=== PATIENT | female | born 1980 | race Caucasian/White ===

== ENCOUNTER 2016-12-15 23:12 | Emergency (ER) | payer BC ==
[~2016-12-15] VITALS: Ht 160 cm; Wt 77.7 kg
[~2016-12-15 23:12] MED LIST: BUPR-79 PO; DILT40TA2 PO; VENL150C56 PO
[2016-12-15 23:19] VITALS: BP 120/74; PULSE 106; TEMP 36.7; O2SAT 96; Ht 160 cm; Wt 77.7 kg
[2016-12-15] MEDS ORDERED: CLIN300C2 PO (23:37)
[2016-12-15] MEDS ORDERED: LPR25 PO (23:39)
[2016-12-15] MEDS ORDERED: CLINDAMYCIN 150MG HOME PACK PO ONE (23:45)
--- NOTE | 2016-12-16 00:11 | EMERGENCY ROOM VISIT NOTE ---
History First contact with patient: 23:24 Chief Complaint: BITE Stated Complaint: BITE ON RT BUTTOCK,SWOLLEN,HURTS History of Present Illness The patient is a 36 year old female who presents to the Emergency Room with complaints of pain and swelling of her right sided buttock for the past 2 days. The patient believes that she may have been bitten by an unknown insect. She did note some blood on her underwear today, causing her concern. The patient has not had fever or chills. She has not had difficulty using the bathroom. She is unable to visualize the area because of its location. She rates her discomfort a 7/10. Review of Systems More than 10 systems were reviewed and otherwise negative with the exception of history of present illness. Past Medical/Surgical History Medical Problems: (1) Alcohol Abuse-Unspec (2) Alcohol overdose (3) Anxiety State Nos (4) Asthma, Unspecified (5) Calculus Of Kidney (6) coronary bypass surgery (7) Ext Hemrrhoid W Comp Nec (8) Heart disease (9) High grade squamous intraepithelial cervical dysplasia (10) Hypertension Nos (11) Intentional overdose of beta-adrenergic blocking drug (12) Kidney stone (13) Lumbago (14) Ovarian Cyst Nec/Nos (15) Tobacco Use Disorder (16) Tonsillectomy Family History Hypertension Social History Smoking Status: Current Every Day Smoker Alcohol Use: occasionally Drug Use: none Marital Status: Housing Status: lives with family, lives with significant other Occupation Status: employed Current/Historical Medications Scheduled Clindamycin Hcl (Cleocin), 300 MG PO QID Metoprolol Tartrate (Lopressor), 25 MG PO BID Venlafaxine Hcl (Effexor Extended Rel), 150 MG PO DAILY Allergies Coded Allergies: Ampicillin (Verified Allergy, Intermediate, HIVES, 12/15/16) Morphine (Verified Allergy, Intermediate, HIVES AFTER AMPICILLIN AND MORPHINE, 12/15/16) Penicillins (Verified Allergy, Intermediate, HIVES AFTER AMPICILLIN AND MORPHINE, 12/15/16) Fentanyl (Verified Allergy, Mild, 12/15/16) Codeine (Verified Allergy, Unknown, 12/15/16) Meperidine (Verified Allergy, Unknown, 12/15/16) Sulfa Antibiotics (Verified Allergy, Unknown, Unknown rxn, 12/15/16) Promethazine (Verified Adverse Reaction, Mild, itching, 12/15/16) Physical Exam Vital Signs Date Time Temp Pulse Resp B/P Pulse Ox O2 Delivery O2 Flow Rate FiO2 12/15/16 23:19 36.7 106 18 120/74 96 Room Air Pain Rating (0-10): 9.0 Physical Exam VITALS: Vitals are noted on the nurse's note and reviewed by myself. Vital signs stable. GENERAL: Well-developed, well-nourished, white female, who is in no acute distress and resting comfortably. Patient is cooperative with the examination. HEAD: Normocephalic atraumatic. HEART: Regular rate and rhythm without murmurs gallops or rubs. LUNGS: Clear to auscultation bilaterally without wheezes, rales or rhonchi. No retractions or accessory muscle use. SKIN: The skin was with a 3.0 cm in diameter open abscess with surrounding cellulitis along the right lower buttocks. There is no active drainage or discharge. Medical Decision & Procedures Medications Administered Medications (Trade) Dose Ordered Sig/Darrell Route Start Time Stop Time Status Last Admin Dose Admin Clindamycin HCl (Cleocin 150MG Home Pack) 1 homepack UD ONCE PO 12/15/16 23:45 12/15/16 23:46 DC 12/15/16 23:45 1 HOMEPACK ED Course Physical exam and history were performed. Nursing notes and EMR were reviewed. Patient appears to have an open abscess of the right lower buttocks. There appears to be a surrounding cellulitis. I attempted to obtain purulent material for culture, but was unable to gather this. The patient will be started on clindamycin. She evidently does not have a primary care physician, and I will have her return to the ER in 48-72 hours for recheck. The patient was otherwise invited back to the ER sooner with any new, worsening, or concerning symptoms. The patient was pleased with plan of care and voiced understanding. The chart was completed utilizing [employer] Voice Recognition Software. Grammatical errors, random word insertions, pronoun errors, and incomplete sentences are an occasional consequence of this system due to software limitations, ambient noise, and hardware issues. Any formal questions or concerns about the content, text, or information contained within the body of this dictation should be directly addressed to the provider for clarification. . Medical Decision Differential diagnosis: Etiologies such as cellulitis, abscess, MRSA infection, DVT, necrotizing fasciitis, dermatitis, drug eruption, as well as others were entertained.. Impression Primary Impression: Cellulitis Departure Information Dispostion Home / Self-Care Condition GOOD Prescriptions Clindamycin Hcl (CLEOCIN) 300 Mg Cap 300 MG PO QID for 10 Days, #40 CAP Prov: Ben Green PA-C 12/15/16 Forms HOME CARE DOCUMENTATION FORM, IMPORTANT VISIT INFORMATION Patient Instructions My [facility] Additional Instructions You were seen and evaluated today on an emergency basis only. This is not a substitute for, or an effort to provide, complete comprehensive medical care. It is not possible to recognize and treat all injuries or illnesses in a single emergency department visit. For this reason it is recommended that you followup with your primary care physician or back in the emergency department in 48-72 hours for recheck of your condition. Take clindamycin 300 mg 4 times daily for your infection. You are welcome to return to the emergency department anytime with new, worsening, or concerning symptoms.
== END 2016-12-15 23:48 | disposition home or self-care (01) ==
LOC: C.EDB 23:13 → C.EDA 23:48
DX: L03.317 Cellulitis of buttock (principal); J45.909 Unspecified asthma, uncomplicated; I10 Essential (primary) hypertension; Z82.49 Family history of ischemic heart disease and other diseases of the circulatory system; F17.200 Nicotine dependence, unspecified, uncomplicated

== ENCOUNTER 2016-12-20 22:41 | Emergency (ER) | payer BC ==
[~2016-12-20] VITALS: Ht 162.6 cm; Wt 76.9 kg
[~2016-12-20 22:41] MED LIST changes: -BUPR-79 PO; +CLIN300C2 PO; -DILT40TA2 PO; +LPR25 PO
[2016-12-20 22:43] VITALS: TEMP 36.7; Ht 162.6 cm; Wt 76.9 kg
[2016-12-20] MEDS ORDERED: SODIUM CHLORIDE 0.9% 1000ML 1,000 ML IV STA ×2 (23:33)
[2016-12-20] MEDS ORDERED: CEFTRIAXONE SOD INJ 1 GM ADDVIAL IV STA (23:33)
[2016-12-20] MEDS ORDERED: KETOROLAC TROMETHAMINE 30 MG/ML VIAL IV STA (23:33)
[2016-12-20] MEDS ORDERED: OPTIRAY 320 IV PRN (23:45)
[2016-12-21 00:04] LABS: BASO % 0.4 %; BASO ABS # 0.03 K/uL (0-0.2); COMPLETE YES; EOS % 2.2 %; HEMATOCRIT 42.5 % (37-47); IG% 0.3 %; LYMPH % 40.1 %; LYMPH ABS # 2.95 K/uL (1.2-3.4); MEAN CELL VOLUME 92.2 fL (80-100); MEAN CORPUSCULAR HEMOGLOBIN 32.1 pg (25-34); MEAN CORPUSCULAR HGB CONC 34.8 g/dl (32-36); MEAN PLATELET VOLUME 10.3 fL (7.4-10.4); MONO % 6.5 %; NEUT % 50.5 %; PLATELET COUNT 307 K/uL (130-400); RED BLOOD COUNT 4.61 M/uL (4.2-5.4); WHITE BLOOD COUNT 7.36 K/uL (4.8-10.8)
[2016-12-21 00:27] LABS: BUN/CREATININE RATIO 8.3 (10-20); CALCIUM 8.6 mg/dl (8.5-10.1); CREATININE 0.63 mg/dl (0.60-1.20); POTASSIUM 3.7 mmol/L (3.5-5.1)
[2016-12-21 00:49] LABS: PREG INTERNAL NEGATIVE QC NEG CLEAR BACKGROUND; PREG INTERNAL POSITIVE QC POS CONTROL LINE
[2016-12-21 02:11] LABS: URINE APPEARANCE CLEAR (CLEAR); URINE BILIRUBIN NEG (NEG); URINE COLOR YELLOW; URINE NITRITE NEG (NEG); URINE SPECIFIC GRAVITY > 1.045 (1.000-1.030); UROBILINOGEN NEG (NEG); ZZUR CULT IF INDIC CLEAN CATCH NO
[2016-12-21 02:15] LABS: MANUAL MICROSCOPIC REQUIRED? NO; REVIEW REQ? NO
[2016-12-21] MEDS ORDERED: CEPH500C2 PO (02:37)
[2016-12-21 02:41] VITALS: BP 140/71; PULSE 78; O2SAT 98
--- NOTE | 2016-12-21 02:49 | EMERGENCY ROOM VISIT NOTE ---
History First contact with patient: 23:18 Chief Complaint: BITE Stated Complaint: FOLLOW UP ON BUG BITE 12/15 History of Present Illness The patient is a 36 year old female who presents to the Emergency Room with complaints of ongoing right buttock pain for the past week is currently on antibiotics for infection due to a infected boil. Patient states the redness has pretty much resolved but she still having discomfort there. 5 out of 10. Nothing makes it better or worse. Patient denies chest pain, dyspnea, fever, chills, nausea, vomiting, diarrhea, abdominal pain, urinary symptoms. She is tolerating by mouth fluids and food. Tetanus is current. Review of Systems See HPI for pertinent positives & negatives. A total of 10 systems reviewed and were otherwise negative. Past Medical/Surgical History Medical Problems: (1) Alcohol Abuse-Unspec (2) Alcohol overdose (3) Anxiety State Nos (4) Asthma, Unspecified (5) Calculus Of Kidney (6) coronary bypass surgery (7) Ext Hemrrhoid W Comp Nec (8) Heart disease (9) High grade squamous intraepithelial cervical dysplasia (10) Hypertension Nos (11) Intentional overdose of beta-adrenergic blocking drug (12) Kidney stone (13) Lumbago (14) Ovarian Cyst Nec/Nos (15) Tobacco Use Disorder (16) Tonsillectomy Family History Hypertension Social History Smoking Status: Current Every Day Smoker Alcohol Use: occasionally Drug Use: none Marital Status: Housing Status: lives with family, lives with significant other Occupation Status: employed Current/Historical Medications Scheduled Cephalexin Monohydrate (Keflex), 500 MG PO QID Clindamycin Hcl (Cleocin), 300 MG PO QID Metoprolol Tartrate (Lopressor), 25 MG PO BID Venlafaxine Hcl (Effexor Extended Rel), 150 MG PO DAILY Allergies Coded Allergies: Ampicillin (Verified Allergy, Intermediate, HIVES, 12/21/16) Morphine (Verified Allergy, Intermediate, HIVES AFTER AMPICILLIN AND MORPHINE, 12/21/16) Penicillins (Verified Allergy, Intermediate, HIVES AFTER AMPICILLIN AND MORPHINE, 12/21/16) Fentanyl (Verified Allergy, Mild, 12/21/16) Codeine (Verified Allergy, Unknown, 12/21/16) Meperidine (Verified Allergy, Unknown, 12/21/16) Sulfa Antibiotics (Verified Allergy, Unknown, Unknown rxn, 12/21/16) Promethazine (Verified Adverse Reaction, Mild, itching, 12/21/16) Physical Exam Vital Signs Date Time Temp Pulse Resp B/P Pulse Ox O2 Delivery O2 Flow Rate FiO2 12/21/16 02:41 78 18 140/71 98 12/21/16 00:27 100 16 136/70 97 Room Air 12/20/16 22:43 36.7 119 18 144/65 96 Room Air Pain Rating (0-10): 4.0 Physical Exam VITALS: Vitals are noted on the nurse's note and reviewed by myself. Vital signs stable. GENERAL: Pleasant female, in no acute distress, nondiaphoretic, well-developed well-nourished. SKIN: Right buttock with 2 cm x 2 cm erythematous area with central ulceration without fluctuance or lymphangitis The rest of the skin was without rashes, erythema, edema, or bruising. There is no tenting of the skin. Capillary reflex less than 2 seconds. HEAD: Normocephalic atraumatic. EARS: External auditory canals clear, tympanic membranes pearly leiva without erythema or effusion bilaterally. EYES: Pupils equal round and reactive to light and accommodation. Conjunctivae without injection, sclerae without icterus. Extraocular movements intact. NOSE: Patent, turbinates without inflammation or discharge. MOUTH: Mucous membranes moist. Pharynx without erythema or exudate. Uvula midline. Airway patent. Tongue does not deviate. NECK: Supple without nuchal rigidity. No lymphadenopathy. No thyromegaly. Cervical spine is nontender. No JVD. HEART: Regular rate and rhythm without murmurs gallops or rubs. LUNGS: Clear to auscultation bilaterally without wheezes, rales or rhonchi. No dullness to percussion. No retractions or accessory muscle use. ABDOMEN: Positive bowel sounds x 4. Normal tympanic percussion. Soft, nontender, without masses or organomegaly. Hyman sign negative. No guarding or rebound tenderness. No CVA tenderness Buttock exam:Right buttock with 2 cm x 2 cm erythematous area with central ulceration without fluctuance or lymphangitis, blocker hand present of the nurse MUSCULOSKELETAL: No muscle atrophy, erythema, or edema noted. NEURO: Patient was alert and oriented to person place and time. Normal sensation to light and sharp touch. No focal neurological deficits. Medical Decision & Procedures Laboratory Results 12/20/16 23:50 Red Blood Count 4.61, Mean Corpuscular Volume 92.2, Mean Corpuscular Hemoglobin 32.1, Mean Corpuscular Hemoglobin Concent 34.8, Mean Platelet Volume 10.3, Neutrophils (%) (Auto) 50.5, Lymphocytes (%) (Auto) 40.1, Monocytes (%) (Auto) 6.5, Eosinophils (%) (Auto) 2.2, Basophils (%) (Auto) 0.4, Neutrophils # (Auto) 3.72, Lymphocytes # (Auto) 2.95, Monocytes # (Auto) 0.48, Eosinophils # (Auto) 0.16, Basophils # (Auto) 0.03 12/20/16 23:50 Test 12/20/16 23:50 12/21/16 02:00 White Blood Count 7.36 K/uL (4.8-10.8) Red Blood Count 4.61 M/uL (4.2-5.4) Hemoglobin 14.8 g/dL (12.0-16.0) Hematocrit 42.5 % (37-47) Mean Corpuscular Volume 92.2 fL (80-100) Mean Corpuscular Hemoglobin 32.1 pg (25-34) Mean Corpuscular Hemoglobin Concent 34.8 g/dl (32-36) Platelet Count 307 K/uL (130-400) Mean Platelet Volume 10.3 fL (7.4-10.4) Neutrophils (%) (Auto) 50.5 % Lymphocytes (%) (Auto) 40.1 % Monocytes (%) (Auto) 6.5 % Eosinophils (%) (Auto) 2.2 % Basophils (%) (Auto) 0.4 % Neutrophils # (Auto) 3.72 K/uL (1.4-6.5) Lymphocytes # (Auto) 2.95 K/uL (1.2-3.4) Monocytes # (Auto) 0.48 K/uL (0.11-0.59) Eosinophils # (Auto) 0.16 K/uL (0-0.5) Basophils # (Auto) 0.03 K/uL (0-0.2) RDW Standard Deviation 43.9 fL (36.4-46.3) RDW Coefficient of Variation 13.1 % (11.5-14.5) Immature Granulocyte % (Auto) 0.3 % Immature Granulocyte # (Auto) 0.02 K/uL (0.00-0.02) Anion Gap 9.0 mmol/L (3-11) Est Creatinine Clear Calc Drug Dose 125.1 ml/min Estimated GFR () 134.7 Estimated GFR (Non- 116.2 BUN/Creatinine Ratio 8.3 (10-20) Calcium Level 8.6 mg/dl (8.5-10.1) Human Chorionic Gonadotropin, Qual NEG (NEG) Urine Color YELLOW Urine Appearance CLEAR (CLEAR) Urine pH 5.0 (4.5-7.5) Urine Specific Bowen > 1.045 (1.000-1.030) Urine Protein NEG (NEG) Urine Glucose (UA) NEG (NEG) Urine Ketones NEG (NEG) Urine Occult Blood NEG (NEG) Urine Nitrite NEG (NEG) Urine Bilirubin NEG (NEG) Urine Urobilinogen NEG (NEG) Urine Leukocyte Esterase NEG (NEG) Medications Administered Medications (Trade) Dose Ordered Sig/Darrell Route Start Time Stop Time Status Last Admin Dose Admin Sodium Chloride 1,000 ml @ 999 mls/hr Q1H1M STAT IV 12/20/16 23:33 12/21/16 00:33 DC 12/20/16 23:33 999 MLS/HR Sodium Chloride (Nss 1000ml) 1,000 ml @ 200 mls/hr Q5H STAT IV 12/20/16 23:33 12/21/16 04:32 12/20/16 23:33 200 MLS/HR Ketorolac Tromethamine (Toradol Inj) 30 mg NOW STAT IV 12/20/16 23:33 12/20/16 23:35 DC 12/20/16 23:59 30 MG Ceftriaxone Sodium (Rocephin Inj) 1 gm NOW STAT IV 12/20/16 23:33 12/20/16 23:35 DC 12/20/16 23:59 1 GM ED Course Prior records reviewed and summarized as above. Triage Nursing notes reviewed. Additional history obtained from family. The patient's history was concerning for swelling and redness of the skin. Differential diagnosis: Etiologies such as cellulitis, abscess, MRSA infection, DVT, necrotizing fasciitis, dermatitis, drug eruption, as well as others were entertained.. Physical examination: The physical examination was consistent with cellulitis ER treatment provided: IV fluids, Toradol, Keflex On reassessment the patient felt better. Diagnostics interpreted by me: The labs revealed no worrisome leukocytosis or electrolyte abnormality, negative urine Imaging studies: CT negative for abscess or fluid collection. This appears to be isolated cellulitis. Patient states overall the redness is improving. Patient was tender to palpation so CT was ordered to rule out abscess or fistula. This is all negative. She is advised to continue her antibiotics and follow-up family care in a few days or here in the ER sooner for fevers, pain, spreading redness, worsening signs or symptoms or as needed. By the evaluation outlined above emergent etiologies such as abscess, necrotizing fasciitis, DVT, as well as others were deemed relatively unlikely. The pt informed about the findings as listed above. All questions were answered and pleased with the treatment. Return instructions were outlined and the patient was discharged in stable condition. Outpatient prescription management: Keflex Referral: The patient was referred back to primary care physician for follow-up in 2 to 3 days for a recheck of the current condition. Case reviewed with my attending Medical Decision As above Impression Primary Impression: Cellulitis of right buttock Departure Information Dispostion Home / Self-Care Condition GOOD Prescriptions Cephalexin Monohydrate (KEFLEX) 500 Mg Cap 500 MG PO QID, #40 CAP Prov: Eduarda Basilio ., SERVANDO 12/21/16 Forms HOME CARE DOCUMENTATION FORM, IMPORTANT VISIT INFORMATION Patient Instructions My [facility] Additional Instructions Cephalexin(Keflex) 500mg: Take one pill four times daily for 10 days for your skin infection. All antibiotics can cause diarrhea. If this occurs and you feel worse or it does not resolve in 1-2 days follow up with your doctor or return to the Emergency Department as this could be signs of serious underlying problems. Any medication can cause an allergic reaction, stop the pills immediately and return to the ER for rash, hives, breathing difficulties, or swelling. Ibuprofen(Motrin, Advil) may be used for fever or pain. Use 600mg every six hours as needed. Take with food. Avoid using more than 2400mg in a 24 hour period. Do not use 2400mg per day for more than three consecutive days without physician direction. Prolonged inappropriate use can lead to stomach upset or ulcers. (AND/OR) Acetaminophen(Tylenol) may be used for fever or pain. Use 1000mg every six hours as needed. Avoid using more than 3000mg in a 24 hour period. Warm compresses to the affected area 4 times daily for 15-20 minutes. Rest and drink plenty of fluids. Continue current medications. Return to the ER for severe pain, persistent fevers, spreading redness, or any worsening of your condition. Follow up with your primary physician within 2-3 days for a recheck of the current condition.
--- NOTE | 2016-12-21 07:50 | DIAGNOSTIC IMAGING REPORT ---
PELVIS W/IV CONT ONLY (CT) HISTORY: Right gluteal pain. TECHNIQUE: Multiaxial CT images of the pelvis performed following the use of intravenous contrast. COMPARISON STUDY: Abdomen and pelvis CT 01/02/2015. FINDINGS: Stable small hypodense lesion within the left side of the uterine fundus. This may represent a fibroid. Mild bladder wall thickening is likely due to underdistention. The visualized loops of bowel show no wall thickening or obstruction. No pelvic lymphadenopathy. No evidence for soft tissue abscess. No radiopaque foreign bodies. The visualized osseous structures are well aligned. IMPRESSION: No evidence for soft tissue abscess. No significant abnormality within the abdomen or pelvis. Electronically signed by: David Tolentino M.D. 12/21/2016 7:49 AM Dictated Date/Time: 12/21/2016 7:47 AM
== END 2016-12-21 02:42 | disposition home or self-care (01) ==
LOC: C.EDB 22:42
DX: L03.317 Cellulitis of buttock (principal); I10 Essential (primary) hypertension; F41.9 Anxiety disorder, unspecified; J45.909 Unspecified asthma, uncomplicated; N83.209 Unspecified ovarian cyst, unspecified side; I51.9 Heart disease, unspecified; F17.200 Nicotine dependence, unspecified, uncomplicated; Z87.440 Personal history of urinary (tract) infections; Z98.890 Other specified postprocedural states; Z79.899 Other long term (current) drug therapy; Z88.0 Allergy status to penicillin; Z88.1 Allergy status to other antibiotic agents; Z88.2 Allergy status to sulfonamides; Z88.5 Allergy status to narcotic agent; Z88.8 Allergy status to other drugs, medicaments and biological substances; Z82.49 Family history of ischemic heart disease and other diseases of the circulatory system

== ENCOUNTER 2017-06-25 15:04 | Emergency (ER) | payer OTHER ==
[~2017-06-25] VITALS: Ht 158.8 cm; Wt 79.8 kg
[~2017-06-25 15:04] MED LIST changes: -CLIN300C2 PO
[2017-06-25 15:06] VITALS: TEMP 37; Ht 158.8 cm; Wt 79.8 kg
[2017-06-25] MEDS ORDERED: ONDANSETRON INJ 2 MG/ML 2 ML VIAL IV STA (15:24)
[2017-06-25 15:35] VITALS: O2SAT 98
[2017-06-25 16:16] LABS: BASO ABS # 0.07 K/uL (0-0.2); COMPLETE YES; EOS % 2.8 %; HEMATOCRIT 44.3 % (37-47); IG% 0.3 %; LYMPH % 24.5 %; LYMPH ABS # 1.73 K/uL (1.2-3.4); MEAN CELL VOLUME 93.3 fL (80-100); MEAN CORPUSCULAR HEMOGLOBIN 32.4 pg (25-34); MEAN CORPUSCULAR HGB CONC 34.8 g/dl (32-36); MEAN PLATELET VOLUME 11.2 fL (7.4-10.4); MONO % 12.2 %; NEUT % 59.2 %; PLATELET COUNT 252 K/uL (130-400); RED BLOOD COUNT 4.75 M/uL (4.2-5.4); WHITE BLOOD COUNT 7.05 K/uL (4.8-10.8)
--- NOTE | 2017-06-25 16:16 | DIAGNOSTIC IMAGING REPORT ---
ABDOMEN 2VIEW W/PA CHEST RTN CLINICAL HISTORY: 37 years-old Female presenting with RUQ/R FLANK PAIN/R CHEST PAIN. TECHNIQUE: PA view of the chest and supine and upright views of the abdomen were obtained. COMPARISON: 01/02/[address] from 01/02/2015. FINDINGS: Median sternotomy wires intact. Cardiomediastinal silhouette normal. Lungs and pleural spaces clear. Mild stool burden. No evidence of obstruction. No evidence of pneumoperitoneum or portal venous gas. No calcifications to suggest nephrolithiasis. Osseous structures normal. IMPRESSION: 1. No acute cardiopulmonary disease. 2. Mild stool burden suggest constipation. No obstruction. Electronically signed by: Tom Sahni M.D. 06/25/2017 4:15 PM Dictated Date/Time: 06/25/2017 4:13 PM
[2017-06-25 16:24] LABS: URINE APPEARANCE CLEAR (CLEAR); URINE BILIRUBIN NEG (NEG); URINE COLOR YELLOW; URINE NITRITE NEG (NEG); URINE PH 8.5 (4.5-7.5); URINE SPECIFIC GRAVITY 1.021 (1.000-1.030); UROBILINOGEN NEG (NEG); ZZUR CULT IF INDIC CLEAN CATCH NO
[2017-06-25 16:26] LABS: INR 0.9 (0.9-1.1); PARTIAL THROMBOPLASTIN RATIO 0.9; PROTHROMBIN TIME (PATIENT) 9.9 SECONDS (9.0-12.0)
[2017-06-25 16:31] LABS: MANUAL MICROSCOPIC REQUIRED? NO; REVIEW REQ? NO
[2017-06-25 16:34] LABS: PREG INTERNAL NEGATIVE QC NEG CLEAR BACKGROUND; PREG INTERNAL POSITIVE QC POS CONTROL LINE
[2017-06-25 17:07] LABS: ALKALINE PHOSPHATASE 78 U/L (45-117); ALT/SGPT 75 U/L (12-78); BLOOD UREA NITROGEN 9 mg/dl (7-18); BUN/CREATININE RATIO 11.9 (10-20); CALCIUM 8.8 mg/dl (8.5-10.1); CARBON DIOXIDE 24 mmol/L (21-32); CHLORIDE 105 mmol/L (98-107); CREATININE 0.76 mg/dl (0.60-1.20); GLUCOSE 91 mg/dl (70-99); SODIUM 140 mmol/L (136-145)
[2017-06-25 17:08] LABS: AST/SGOT 39 U/L (15-37); CKMB/CK RATIO 1.1 (0-3.0); POTASSIUM 4.2 mmol/L (3.5-5.1)
[2017-06-25] MEDS ORDERED: METO50TA16 PO (17:35)
[2017-06-25] MEDS ORDERED: ONDA4TAB10 SL (17:39)
--- NOTE | 2017-06-25 17:42 | EMERGENCY ROOM VISIT NOTE ---
History First contact with patient: 15:10 Chief Complaint: NAUSEA Stated Complaint: NAUSEA, RT SIDE PAIN Nursing Triage Summary: Pt stated that 2weeks ago she was experincing chest pain. The pain then radiated to her abdomen. The pain for the last 2 days have been in the upper/lower right quadrant. Pt states that the pain is a constant ache. Pt also has nausea but denies any vomiting. +bowel sounds all 4 quadrants History of Present Illness The patient is a 37 year old female who presents to the Emergency Room with complaints of intermittent right-sided chest pain, right upper quadrant and right flank pain. The patient reports that she has had an admit and symptoms for the past 2 weeks that is now becoming more constant. It initially started with left central chest discomfort. The patient also reports that she has had a cough over the past month. The patient has a significant history of supraventricular aortic stenosis, status post open heart surgery in 1984. She is currently under the care of Dr. Graves, skating rink ice maker at . She had a recent echocardiogram performed, and is scheduled to see her skating rink ice maker in about one week for follow-up. She does not feel that her pain is secondary to her heart. She denies any shortness of breath. She has had nausea without vomiting. She denies any fevers or chills. Her cough is nonproductive. The pain is worsened when lying on her right side. Patient has a significant history of endometriosis, and has had a prior history of laparoscopic abdominal surgery. She still has all of her reproductive organs, and denies any other abdominal surgeries the patient admits that he had significant depression approximately 2 weeks ago, and was drinking approximately 15 beers a day for several days. She denies any suicidal or homicidal thoughts. She only takes ibuprofen as needed for menstrual cramps, and denies any Tylenol or illicit drug use. She denies any new urinary symptoms. She does report a history of pyelonephritis, but reports that the symptoms are also different. The patient currently rates her discomfort a 7 out of 10. Review of Systems HEENT: Denies dizziness, visual problems, hearing loss, tinnitus. Denies difficulty swallowing or oral lesions. PULMONARY: Denies shortness of breath, sputum production or hemoptysis. Otherwise see history of present illness. CARDIOVASCULAR: Denies palpitations, dyspnea on exertion, orthopnea or peripheral edema. Otherwise see history of present illness. GASTROINTESTINAL: Denies diarrhea, constipation or vomiting, otherwise see history of present illness. GENITOURINARY: Patient reports a chronic history of urinary urgency, but denies any other significant current abnormal symptoms. NEUROLOGIC: Denies history of epilepsy, CVA, TIA or chronic headaches. MUSCULOSKELETAL: Denies history of joint tenderness/swelling. SKIN: Denies rashes or lesions. PSYCHIATRIC: History of depression. ENDOCRINE: Denies history of diabetes or thyroid disorders. Past Medical/Surgical History Medical Problems: (1) Alcohol Abuse-Unspec (2) Alcohol overdose (3) Anxiety State Nos (4) Asthma, Unspecified (5) Calculus Of Kidney (6) coronary bypass surgery (7) Ext Hemrrhoid W Comp Nec (8) Heart disease (9) High grade squamous intraepithelial cervical dysplasia (10) Hypertension Nos (11) Intentional overdose of beta-adrenergic blocking drug (12) Kidney stone (13) Lumbago (14) Ovarian Cyst Nec/Nos (15) Tobacco Use Disorder (16) Tonsillectomy Family History Hypertension Social History Smoking Status: Current Every Day Smoker Alcohol Use: occasionally Drug Use: none Marital Status: Housing Status: lives with family, lives with significant other Occupation Status: employed Current/Historical Medications Scheduled Metoprolol Tartrate (Lopressor), 25 MG PO BID Venlafaxine Hcl (Effexor Extended Rel), 150 MG PO DAILY Physical Exam Vital Signs Date Time Temp Pulse Resp B/P (MAP) Pulse Ox O2 Delivery O2 Flow Rate FiO2 06/25/17 16:36 79 06/25/17 15:35 98 Room Air 06/25/17 15:06 37.0 83 18 133/82 97 Room Air Physical Exam CONSTITUTIONAL: Healthy and well nourished. Alert and oriented X 3 with positive affect. Patient appears in moderate discomfort from pain and nausea. She does not appear acutely ill or toxic. HEENT: Normocephalic, atraumatic. Pupils equal, round and reactive. Nose clear icterus or conjunctival injection/pallor. NECK: Full active range of motion without discomfort. No JVD or carotid bruits. RESPIRATORY: Clear to auscultation bilaterally with no wheezing, crackles, rhonchi or stridor. Deep breathing slightly worsens the patient's discomfort. CARDIOVASCULAR: Regular rate and rhythm with no murmurs, rubs or gallops. GASTROINTESTINAL: Bowel sounds present in all quadrants. Patient has mild right-sided and right upper quadrant abdominal tenderness to palpation. Negative Hyman sign. Negative CVA tenderness. No obvious hepatosplenomegaly. Negative McBurney's point tenderness. No abdominal rigidity, guarding or rebound. MUSCULOSKELETAL: Full range of motion of all joints without discomfort. Should has minimal tenderness to palpation through the right ribs. INTEGUMENTARY: No rash or other significant dermatologic conditions noted. HEMATOLOGIC: No ecchymosis or petechiae noted. NEUROLOGIC: No focal neurologic deficits noted. Medical Decision & Procedures ER Provider Diagnostic Interpretation: My interpretation of an ECG shows a normal sinus rhythm of [address] elevation or other conduction abnormalities. My interpretation of an abdomen obstruction series with a PA chest view shows mild constipation without evidence for obstructive pattern, free air or base or lung consolidations. Radiologist report is as follows: ABDOMEN 2VIEW W/PA CHEST RTN CLINICAL HISTORY: 37 years-old Female presenting with RUQ/R FLANK PAIN/R CHEST PAIN. TECHNIQUE: PA view of the chest and supine and upright views of the abdomen were obtained. COMPARISON: 01/02/[address] from 01/02/2015. FINDINGS: Median sternotomy wires intact. Cardiomediastinal silhouette normal. Lungs and pleural spaces clear. Mild stool burden. No evidence of obstruction. No evidence of pneumoperitoneum or portal venous gas. No calcifications to suggest nephrolithiasis. Osseous structures normal. IMPRESSION: 1. No acute cardiopulmonary disease. 2. Mild stool burden suggest constipation. No obstruction. Laboratory Results 06/25/17 15:50 Red Blood Count 4.75, Mean Corpuscular Volume 93.3, Mean Corpuscular Hemoglobin 32.4, Mean Corpuscular Hemoglobin Concent 34.8, Mean Platelet Volume 11.2, Neutrophils (%) (Auto) 59.2, Lymphocytes (%) (Auto) 24.5, Monocytes (%) (Auto) 12.2, Eosinophils (%) (Auto) 2.8, Basophils (%) (Auto) 1.0, Neutrophils # (Auto ) 4.17, Lymphocytes # (Auto) 1.73, Monocytes # (Auto) 0.86, Eosinophils # (Auto ) 0.20, Basophils # (Auto) 0.07 06/25/17 15:50 Test 06/25/17 15:50 06/25/17 15:51 White Blood Count 7.05 K/uL (4.8-10.8) Red Blood Count 4.75 M/uL (4.2-5.4) Hemoglobin 15.4 g/dL (12.0-16.0) Hematocrit 44.3 % (37-47) Mean Corpuscular Volume 93.3 fL (80-100) Mean Corpuscular Hemoglobin 32.4 pg (25-34) Mean Corpuscular Hemoglobin Concent 34.8 g/dl (32-36) Platelet Count 252 K/uL (130-400) Mean Platelet Volume 11.2 fL (7.4-10.4) Neutrophils (%) (Auto) 59.2 % Lymphocytes (%) (Auto) 24.5 % Monocytes (%) (Auto) 12.2 % Eosinophils (%) (Auto) 2.8 % Basophils (%) (Auto) 1.0 % Neutrophils # (Auto) 4.17 K/uL (1.4-6.5) Lymphocytes # (Auto) 1.73 K/uL (1.2-3.4) Monocytes # (Auto) 0.86 K/uL (0.11-0.59) Eosinophils # (Auto) 0.20 K/uL (0-0.5) Basophils # (Auto) 0.07 K/uL (0-0.2) RDW Standard Deviation 44.5 fL (36.4-46.3) RDW Coefficient of Variation 13.1 % (11.5-14.5) Immature Granulocyte % (Auto) 0.3 % Immature Granulocyte # (Auto) 0.02 K/uL (0.00-0.02) Prothrombin Time 9.9 SECONDS (9.0-12.0) Prothromb Time International Ratio 0.9 (0.9-1.1) Activated Partial Thromboplast Time 23.5 SECONDS (21.0-31.0) Partial Thromboplastin Ratio 0.9 D-Dimer 360 ug/L FEU (0-500) Anion Gap 11.0 mmol/L (3-11) Est Creatinine Clear Calc Drug Dose 101.3 ml/min Estimated GFR () 117.0 Estimated GFR (Non- 100.9 BUN/Creatinine Ratio 11.9 (10-20) Calcium Level 8.8 mg/dl (8.5-10.1) Total Bilirubin 0.5 mg/dl (0.2-1) Direct Bilirubin 0.2 mg/dl (0-0.2) Aspartate Amino Transf (AST/SGOT) 39 U/L (15-37) Alanine Aminotransferase (ALT/SGPT) 75 U/L (12-78) Alkaline Phosphatase 78 U/L (45-117) Total Creatine Kinase 53 U/L (26-192) Creatine Kinase MB 0.6 ng/ml (0.5-3.6) Creatine Kinase MB Ratio 1.1 (0-3.0) Troponin I < 0.015 ng/ml (0-0.045) Total Protein 7.5 gm/dl (6.4-8.2) Albumin 3.6 gm/dl (3.4-5.0) Lipase 225 U/L (73-393) Human Chorionic Gonadotropin, Qual NEG (NEG) Urine Color YELLOW Urine Appearance CLEAR (CLEAR) Urine pH 8.5 (4.5-7.5) Urine Specific Cardinal 1.021 (1.000-1.030) Urine Protein NEG (NEG) Urine Glucose (UA) NEG (NEG) Urine Ketones NEG (NEG) Urine Occult Blood NEG (NEG) Urine Nitrite NEG (NEG) Urine Bilirubin NEG (NEG) Urine Urobilinogen NEG (NEG) Urine Leukocyte Esterase NEG (NEG) The above labs were reviewed and were grossly normal except for a mildly elevated AST of 39. Troponin and d-dimer are normal. Urinalysis is unremarkable. Medications Administered Medications (Trade) Dose Ordered Sig/Darrell Route Start Time Stop Time Status Last Admin Dose Admin Ondansetron HCl (Zofran Inj) 4 mg NOW STAT IV 06/25/17 15:24 06/25/17 15:27 DC 06/25/17 15:58 4 MG ED Course Patient history and physical exam were performed. Nurse's notes were reviewed. Vital signs were reviewed and were normal. The patient is afebrile, not tachycardic and with normal O2 saturation on room air. IV access was established, and labs were drawn. The patient was administered IV Zofran for nausea. She refused any analgesics. An ECG and an abdomen obstruction series with a PA chest view were normal. Review of labs showed no acute findings except for mildly elevated AST. The case was further discussed with Dr. Zimmerman, ED attending physician, who agrees with workup and outpatient workup. The patient has had a previous EGD performed by Dr. Quintanilla. She was encouraged to call their office for further follow-up as this may be secondary to recurrent gastritis or other GI etiologies. At this point, I do not feel that further imaging studies such as an ultrasound or HIDA scan are warranted. The patient was encouraged to refrain from further alcohol, NSAIDs and caffeine use. She was encouraged to take Zantac 150 mg twice a day, and Maalox as needed for additional relief. The patient reports that she does have a prescription PPI at home that she has not taken on a regular basis. She also reflects that she had a persistent H. 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 She was provided a prescription for Zofran ODT as needed for nausea. She was instructed to return for any significantly worsening pain, developing fever or other concerning symptoms. The patient was happy with plan of care, voiced understanding of all discharge instructions, and rated her discomfort a 2 out of 10 at the conclusion of my exam. Medical Decision See previous section. Workup today is not suggestive of acute pancreatitis, hepatitis, cholecystitis, bowel obstruction, pyelonephritis, UTI, appendicitis, pneumonia, pneumothorax or perforated bowel. I do not feel that any further advanced imaging is warranted at this time. The patient is afebrile and has no leukocytosis. She has no peritoneal signs on exam. Laboratory studies are not suggestive of acute cardiopulmonary etiology such as myocardial infarction or pulmonary embolus. [place] Drug Monitoring Program Search Results: patient reviewed within database, no issues identified Medication Reconcilliation Current Medication List: was personally reviewed by me Blood Pressure Screening Patient's blood pressure: Normal blood pressure Impression Primary Impression: Right upper quadrant abdominal pain Departure Information Referrals No Doctor, Assigned (PCP) Patient Instructions My [facility]
[2017-06-25 17:50] VITALS: BP 132/79; PULSE 88; O2SAT 97
== END 2017-06-25 17:52 | disposition home or self-care (01) ==
LOC: C.EDB 15:05 → C.EDA 17:52
DX: R10.11 Right upper quadrant pain (principal); I10 Essential (primary) hypertension; I51.9 Heart disease, unspecified; N83.209 Unspecified ovarian cyst, unspecified side; J45.909 Unspecified asthma, uncomplicated; F41.9 Anxiety disorder, unspecified; F17.200 Nicotine dependence, unspecified, uncomplicated; Z95.1 Presence of aortocoronary bypass graft; Z79.899 Other long term (current) drug therapy; Z82.49 Family history of ischemic heart disease and other diseases of the circulatory system

== ENCOUNTER 2017-11-06 23:40 | Emergency (ER) | payer OTHER ==
[~2017-11-06] VITALS: Ht 157.5 cm; Wt 82.1 kg
[~2017-11-06 23:40] MED LIST changes: -LPR25 PO; +METO50TA16 PO; +ONDA4TAB10 SL
[2017-11-06 23:44] VITALS: Ht 157.5 cm; Wt 82.1 kg
[2017-11-07] MEDS ORDERED: DIPHTHERIA/TETANUS/PERTUSSIS 0.5 ML SYR/VIAL IM. ONE
[2017-11-07] MEDS ORDERED: XYLOCAINE 1%/SOD BICARB 20 ML VIAL INFIL ONE
[2017-11-07 00:46] VITALS: BP 114/69; PULSE 101; TEMP 36.8; O2SAT 97
--- NOTE | 2017-11-07 02:33 | EMERGENCY ROOM VISIT NOTE ---
ED Visit Note First contact with patient: 23:47 CHIEF COMPLAINT: Right hand laceration HISTORY OF PRESENT ILLNESS: This 37-year-old patient presents to the emergency department after cutting the right hand on glass when she fell out of the chair and landed on a glass loss. Patient believes there is glass still in the cut. The bleeding has not stopped. Denies weakness or numbness of the extremity. The patient has full range of motion of the extremity. The patient rates the pain as mild and 2/10. The patient denies any other injuries. The patient's tetanus shot is not up to date. REVIEW OF SYSTEMS: A 6 system review of systems was completed with positives and pertinent negatives listed in the HPI. ALLERGIES: Codeine, reviewed MEDICATIONS: Reviewed PMH: Medical Problems: (1) coronary bypass surgery Status: Resolved (2) Heart disease Status: Chronic (3) High grade squamous intraepithelial cervical dysplasia Status: Chronic (4) Kidney stone Status: Resolved (5) Tonsillectomy Status: Resolved Medical Problems: (1) coronary bypass surgery Status: Resolved (2) Heart disease Status: Chronic (3) High grade squamous intraepithelial cervical dysplasia Status: Chronic (4) Kidney stone Status: Resolved (5) Tonsillectomy Status: Resolved SOCIAL HISTORY: No drug use PHYSICAL EXAM: Vital Signs: Reviewed Nurse's notes, vital signs stable. GENERAL : Pleasant female, in no acute distress, well developed, well nourished. SKIN: There is a 3 cm long laceration on the palmar aspect of the right hand. The edges gape apart with traction. There is a small piece of glass in the wound and it looks clean. There is bleeding. No deep structures such as tendons, bones, or significant blood vessels are seen in the base of the wound. Extension and flexion of the extremity is full and strong. Full range of motion of the extremity. Capillary refill less than 2 seconds. Normal sensation to light and sharp touch. EMERGENCY DEPARTMENT COURSE: I examined the patient. Using sterile technique the wound was cleansed with Betadine. 3 ml of 1% buffered lidocaine was used to anesthetize the patient. The area was sterilely draped. Once the patient was anesthetized, the small piece of glass was removed and wound was copiously irrigated under pressure with sterile saline. No other foreign bodies were visualized. The wound was explored and there were no deep structures injured. The laceration was repaired using 4 simple interrupted 4-0 nylon sutures. The patient tolerated the procedure well. Hemostasis was achieved. The area was cleaned with sterile saline and dressed with bacitracin ointment and bandage. The patient was given a tetanus booster. The patient was discharged home in good condition. DIAGNOSIS: Right hand laceration DISCHARGE INSTRUCTIONS & TREATMENT: Keep wound clean and dry. Do not allow any crusting or dried blood to accumulate on sutures. If this occurs, use a 1:1 solution of hydrogen peroxide/water on a Q-tip to clean the wound. Use an antibiotic ointment for 3-4 days, then let wound dry. Suture removal in 10-12 days. Return sooner for any signs of infection (increasing redness, swelling, drainage). Ice and elevate for swelling and pain. Ibuprofen 600 mg and Tylenol 500 mg every 6 hrs for pain. Keep covered when in sun until sutures removed then SPF 50 or higher for one year. Vitamin E oil if desired two weeks after suture removal for reduction of scar. Problem List Medical Problems: (1) coronary bypass surgery Status: Resolved (2) Heart disease Status: Chronic (3) High grade squamous intraepithelial cervical dysplasia Status: Chronic (4) Kidney stone Status: Resolved (5) Tonsillectomy Status: Resolved Current/Historical Medications Scheduled Metoprolol Tartrate (Lopressor) (Lopressor), 50 MG PO BID Venlafaxine Hcl (Effexor Extended Rel), 150 MG PO DAILY Allergies Coded Allergies: Ampicillin (Verified Allergy, Intermediate, HIVES, 11/07/17) Morphine (Verified Allergy, Intermediate, HIVES AFTER AMPICILLIN AND MORPHINE, 11/07/17) Penicillins (Verified Allergy, Intermediate, HIVES AFTER AMPICILLIN AND MORPHINE, 11/07/17) Fentanyl (Verified Allergy, Mild, 11/07/17) Codeine (Verified Allergy, Unknown, 11/07/17) Meperidine (Verified Allergy, Unknown, 11/07/17) Sulfa Antibiotics (Verified Allergy, Unknown, Unknown rxn, 11/07/17) Promethazine (Verified Adverse Reaction, Mild, itching, 11/07/17) Vital Signs Date Time Temp Pulse Resp B/P (MAP) Pulse Ox O2 Delivery O2 Flow Rate FiO2 11/07/17 00:46 36.8 101 20 114/69 97 Room Air 11/06/17 23:44 36.7 128 16 135/87 95 Room Air Medications Administered Medications (Trade) Dose Ordered Sig/Darrell Route Start Time Stop Time Status Last Admin Dose Admin Diphtheria/ Pertussis/Tetanus Vacc (Adacel Inj) 0.5 ml ONCE ONCE IM. 11/07/17 00:00 11/07/17 00:01 DC 11/07/17 00:42 0.5 ML Departure Information Impression Primary Impression: Laceration of right hand Dispostion Home / Self-Care Condition GOOD Forms HOME CARE DOCUMENTATION FORM, IMPORTANT VISIT INFORMATION Patient Instructions My [facility], ED Laceration All Additional Instructions Keep wound clean and dry. Do not allow any crusting or dried blood to accumulate on sutures. If this occurs, use a 1:1 solution of hydrogen peroxide/ water on a Q-tip to clean the wound. Use an antibiotic ointment for 3-4 days, then let wound dry. Suture removal in 10-12 days. Return sooner for any signs of infection (increasing redness, swelling, drainage). Ice and elevate for swelling and pain. Ibuprofen 600 mg and Tylenol 1000 mg every 6 hrs for pain. Keep covered when in sun until sutures removed then SPF 50 or higher for one year. Vitamin E oil if desired two weeks after suture removal for reduction of scar
== END 2017-11-07 00:57 | disposition home or self-care (01) ==
LOC: C.EDB 23:41
DX: S61.421A Laceration with foreign body of right hand, initial encounter (principal); W45.8XXA Other foreign body or object entering through skin, initial encounter; Y92.9 Unspecified place or not applicable; I51.9 Heart disease, unspecified; Z95.1 Presence of aortocoronary bypass graft; Z79.899 Other long term (current) drug therapy; Z88.0 Allergy status to penicillin; Z88.5 Allergy status to narcotic agent; Z88.2 Allergy status to sulfonamides; Z88.8 Allergy status to other drugs, medicaments and biological substances

== ENCOUNTER 2017-11-20 18:03 | Emergency (ER) | payer OTHER ==
[~2017-11-20] VITALS: Ht 157.5 cm; Wt 82.7 kg
[~2017-11-20 18:03] MED LIST changes: -ONDA4TAB10 SL
[2017-11-20 18:11] VITALS: TEMP 36.7; Ht 157.5 cm; Wt 82.7 kg
[2017-11-20] MEDS ORDERED: KETOROLAC TROMETHAMINE 30 MG/ML VIAL IV STA (19:39)
[2017-11-20 20:11] LABS: ISTAT CREATININE 0.7 mg/dl (0.6-1.3); ISTAT IONIZED CALCIUM 1.13 mmol/l (1.12-1.32); ISTAT POTASSIUM 4.1 mEq/L (3.3-5.0)
[2017-11-20 20:33] LABS: BASO % 0.4 %; BASO ABS # 0.04 K/uL (0-0.2); EOS ABS # 0.31 K/uL (0-0.5); HEMATOCRIT 43.3 % (37-47); HEMOGLOBIN 14.9 g/dL (12.0-16.0); IG# 0.03 K/uL (0.00-0.02); LYMPH % 24.8 %; LYMPH ABS # 2.53 K/uL (1.2-3.4); MEAN CELL VOLUME 91.9 fL (80-100); MEAN CORPUSCULAR HEMOGLOBIN 31.6 pg (25-34); MEAN CORPUSCULAR HGB CONC 34.4 g/dl (32-36); MEAN PLATELET VOLUME 10.6 fL (7.4-10.4); MONO % 10.1 %; MONO ABS # 1.03 K/uL (0.11-0.59); NEUT % 61.4 %; NEUT ABS # 6.26 K/uL (1.4-6.5); PLATELET COUNT 286 K/uL (130-400); RED CELL DISTRIBUTION WIDTH CV 13.3 % (11.5-14.5); RED CELL DISTRIBUTION WIDTH SD 44.2 fL (36.4-46.3)
--- NOTE | 2017-11-20 20:43 | DIAGNOSTIC IMAGING REPORT ---
CT FACIAL-MAXILLOFACIAL WITH CT DOSE: 667.92 mGy.cm CLINICAL HISTORY: Right-sided mandibular pain TECHNIQUE: The patient was scanned in a dynamic helical fashion during intravenous administration of 95 cc Optiray 320. A dose lowering technique was utilized adhering to the principles of ALARA. COMPARISON STUDY: Noncontrast study dated 03/03/2015 FINDINGS: The visualized portions of the thyroid are unremarkable in appearance. No salivary gland masses are visualized. No mucosal space masses are visualized. No pathologically enlarged or necrotic cervical lymph nodes are visualized. There is no evidence of airway compromise. There are areas of mucosal thickening within the sphenoid ethmoid and maxillary sinuses. The patient is edentulous. IMPRESSION: 1. No pathologic masses identified 2. No evidence of abscess 3. No evidence of pathologic adenopathy 4. Mild paranasal sinus mucosal thickening Electronically signed by: Americo Madison M.D. 11/20/2017 8:42 PM Dictated Date/Time: 11/20/2017 8:38 PM
[2017-11-20] MEDS ORDERED: OPTIRAY 320 IV PRN (20:45)
--- NOTE | 2017-11-20 20:46 | EMERGENCY ROOM VISIT NOTE ---
History Report prepared by Sandor: Magalys Laguerre Under the Supervision of: Dr. Mark Emanuel M.D. First contact with patient: 19:10 Chief Complaint: THROAT PAIN/INJURY Stated Complaint: STIFF SORE NECK,SWOLLEN GLANDS UNDER CHIN AND NECK History of Present Illness The patient is a 37 year old female who presents to the Emergency Room with complaints of worsening throat pain starting this morning. The patient states that she noticed when she went to work last night that there was a small lump in her throat. She states that it did not bother her until this morning when she went to bed. She said that it became larger and feels like her glands around it are swelling. She notes that the pain radiates into her face and neck. She reports that she took Ibuprofen 2.5 hours ago with no relief. The patient notes that she is a smoker. Source of History: patient Onset: this morning Position: throat Quality: other (swollen) Timing: worsening Note: The patient complains of the pain radiating into her face and neck. Review of Systems See HPI for pertinent positives & negatives. A total of 10 systems reviewed and were otherwise negative. Past Medical & Surgical Medical Problems: (1) Alcohol Abuse-Unspec (2) Alcohol overdose (3) Anxiety State Nos (4) Asthma, Unspecified (5) Calculus Of Kidney (6) coronary bypass surgery (7) Ext Hemrrhoid W Comp Nec (8) Heart disease (9) High grade squamous intraepithelial cervical dysplasia (10) Hypertension Nos (11) Intentional overdose of beta-adrenergic blocking drug (12) Kidney stone (13) Lumbago (14) Ovarian Cyst Nec/Nos (15) Tobacco Use Disorder (16) Tonsillectomy Family History Cancer Heart disease Hypertension Lung disease Social History Smoking Status: Current Every Day Smoker Alcohol Use: occasionally Drug Use: none Marital Status: Housing Status: lives with family, lives with significant other Occupation Status: employed Current/Historical Medications Scheduled Amoxicillin & Pot Clavulanate (Augmentin 875-125 mg), 1 TAB PO BID Metoprolol Tartrate (Lopressor) (Lopressor), 50 MG PO BID Venlafaxine Hcl (Effexor Extended Rel), 150 MG PO DAILY Scheduled PRN Oxycodone Immediate Rel Tab (Roxicodone Ir), 1-2 TAB PO Q4H PRN for Severe Pain Allergies Coded Allergies: Ampicillin (Verified Allergy, Intermediate, HIVES, 4/11/18) Morphine (Verified Allergy, Intermediate, HIVES AFTER AMPICILLIN AND MORPHINE, 11/07/17) Penicillins (Verified Allergy, Intermediate, HIVES AFTER AMPICILLIN AND MORPHINE, 11/07/17) Fentanyl (Verified Allergy, Mild, 11/07/17) Codeine (Verified Allergy, Unknown, 11/07/17) Meperidine (Verified Allergy, Unknown, 11/07/17) Sulfa Antibiotics (Verified Allergy, Unknown, Unknown rxn, 11/07/17) Promethazine (Verified Adverse Reaction, Mild, itching, 11/07/17) Physical Exam Vital Signs Date Time Temp Pulse Resp B/P (MAP) Pulse Ox O2 Delivery O2 Flow Rate FiO2 11/20/17 21:39 88 142/81 97 Room Air 11/20/17 18:13 Room Air 11/20/17 18:11 36.7 120 18 160/99 97 Room Air Physical Exam GENERAL: Awake, alert, well-appearing, in no acute distress HENT: Normocephalic, atraumatic. Oropharynx unremarkable. No evidence of Souleymane angina on exam, but has swollen submandibular gland consistent with sialoadenitis. EYES: Normal conjunctiva. Sclera non-icteric. NECK: Supple. No nuchal rigidity. FROM. No JVD. RESPIRATORY: Clear to auscultation. CARDIAC: Regular rate, normal rhythm. Extremities warm and well perfused. Pulses equal. ABDOMEN: Soft, non-distended. No tenderness to palpation. No rebound or guarding. No masses. RECTAL: Deferred. MUSCULOSKELETAL: Chest examination reveals no tenderness. The back is symmetrical on inspection without obvious abnormality. There is no CVA tenderness to palpation. No joint edema. LOWER EXTREMITIES: Calves are equal size bilaterally and non-tender. No edema. No discoloration. NEURO: Normal sensorium. No sensory or motor deficits noted. SKIN: No rash or jaundice noted. Medical Decision & Procedures ER Provider Diagnostic Interpretation: Radiology results as stated below per my review and radiologist interpretation: CT FACIAL-MAXILLOFACIAL WITH CT DOSE: 667.92 mGy.cm CLINICAL HISTORY: Right-sided mandibular pain TECHNIQUE: The patient was scanned in a dynamic helical fashion during intravenous administration of 95 cc Optiray 320. A dose lowering technique was utilized adhering to the principles of ALARA. COMPARISON STUDY: Noncontrast study dated 03/03/2015 FINDINGS: The visualized portions of the thyroid are unremarkable in appearance. No salivary gland masses are visualized. No mucosal space masses are visualized. No pathologically enlarged or necrotic cervical lymph nodes are visualized. There is no evidence of airway compromise. There are areas of mucosal thickening within the sphenoid ethmoid and maxillary sinuses. The patient is edentulous. IMPRESSION: 1. No pathologic masses identified 2. No evidence of abscess 3. No evidence of pathologic adenopathy 4. Mild paranasal sinus mucosal thickening Electronically signed by: Americo Madison M.D. 11/20/2017 8:42 PM Dictated Date/Time: 11/20/2017 8:38 PM Laboratory Results 11/20/17 19:55 Red Blood Count 4.71, Mean Corpuscular Volume 91.9, Mean Corpuscular Hemoglobin 31.6, Mean Corpuscular Hemoglobin Concent 34.4, Mean Platelet Volume 10.6, Neutrophils (%) (Auto) 61.4, Lymphocytes (%) (Auto) 24.8, Monocytes (%) (Auto) 10.1, Eosinophils (%) (Auto) 3.0, Basophils (%) (Auto) 0.4, Neutrophils # (Auto ) 6.26, Lymphocytes # (Auto) 2.53, Monocytes # (Auto) 1.03, Eosinophils # (Auto ) 0.31, Basophils # (Auto) 0.04 11/20/17 19:55 Test 11/20/17 19:37 11/20/17 19:55 11/20/17 19:58 Urine Color YELLOW Urine Appearance CLEAR (CLEAR) Urine pH 5.5 (4.5-7.5) Urine Specific [place] 1.022 (1.000-1.030) Urine Protein NEG (NEG) Urine Glucose (UA) NEG (NEG) Urine Ketones NEG (NEG) Urine Occult Blood 3+ (NEG) Urine Nitrite NEG (NEG) Urine Bilirubin NEG (NEG) Urine Urobilinogen NEG (NEG) Urine Leukocyte Esterase SMALL (NEG) Urine WBC (Auto) 5-10 /hpf (0-5) Urine RBC (Auto) >30 /hpf (0-4) Urine Hyaline Casts (Auto) 1-5 /lpf (0-5) Urine Epithelial Cells (Auto) >30 /lpf (0-5) Urine Bacteria (Auto) NEG (NEG) White Blood Count 10.20 K/uL (4.8-10.8) Red Blood Count 4.71 M/uL (4.2-5.4) Hemoglobin 14.9 g/dL (12.0-16.0) Hematocrit 43.3 % (37-47) Mean Corpuscular Volume 91.9 fL (80-100) Mean Corpuscular Hemoglobin 31.6 pg (25-34) Mean Corpuscular Hemoglobin Concent 34.4 g/dl (32-36) Platelet Count 286 K/uL (130-400) Mean Platelet Volume 10.6 fL (7.4-10.4) Neutrophils (%) (Auto) 61.4 % Lymphocytes (%) (Auto) 24.8 % Monocytes (%) (Auto) 10.1 % Eosinophils (%) (Auto) 3.0 % Basophils (%) (Auto) 0.4 % Neutrophils # (Auto) 6.26 K/uL (1.4-6.5) Lymphocytes # (Auto) 2.53 K/uL (1.2-3.4) Monocytes # (Auto) 1.03 K/uL (0.11-0.59) Eosinophils # (Auto) 0.31 K/uL (0-0.5) Basophils # (Auto) 0.04 K/uL (0-0.2) RDW Standard Deviation 44.2 fL (36.4-46.3) RDW Coefficient of Variation 13.3 % (11.5-14.5) Immature Granulocyte % (Auto) 0.3 % Immature Granulocyte # (Auto) 0.03 K/uL (0.00-0.02) Est Creatinine Clear Calc Drug Dose 95.7 ml/min Estimated GFR () 108.3 Estimated GFR (Non- 93.4 BUN/Creatinine Ratio 11.8 (10-20) Calcium Level 8.8 mg/dl (8.5-10.1) Total Bilirubin 0.4 mg/dl (0.2-1) Direct Bilirubin mg/dl (0-0.2) Aspartate Amino Transf (AST/SGOT) 53 U/L (15-37) Alanine Aminotransferase (ALT/SGPT) 72 U/L (12-78) Alkaline Phosphatase 104 U/L (45-117) Total Protein 7.8 gm/dl (6.4-8.2) Albumin 3.8 gm/dl (3.4-5.0) Lipase 230 U/L (73-393) Chemistry Specimen Hemolysis Monoscreen NEG (NEG) Bedside Hemoglobin 15.3 g/dl (12.0-16.0) Bedside Hematocrit 45 % (37-47) Bedside Sodium 141 mEq/L (135-144) Bedside Potassium 4.1 mEq/L (3.3-5.0) Bedside Chloride 104 mEq/L (101-112) Bedside Total CO2 28 mEq/l (24-31) Anion Gap 14.0 mmol/L (16-25) Bedside Blood Urea Nitrogen 10 mg/dl (7-18) Bedside Creatinine 0.7 mg/dl (0.6-1.3) Bedside Glucose (other) 85 mg/dl (70-99) Bedside Ionized Calcium (William) 1.13 mmol/l (1.12-1.32) Labs reviewed by ED physician. Medications Administered Medications (Trade) Dose Ordered Sig/Darrell Route Start Time Stop Time Status Last Admin Dose Admin Ketorolac Tromethamine (Toradol Inj) 30 mg NOW STAT IV 11/20/17 19:39 11/20/17 19:43 DC 11/20/17 19:56 30 MG Amoxicillin/ Clavulanate Potassium (Augmentin Tab) 875 mg ONE ONCE PO 11/20/17 21:30 11/20/17 21:31 DC 11/20/17 21:48 875 MG Oxycodone HCl (Roxicodone Immediate Rel 5MG Home Pack) 1 homepack UD STAT PO 11/20/17 21:27 11/20/17 21:29 DC 11/20/17 21:48 1 HOMEPACK ED Course 1932: Past medical records reviewed. The patient was evaluated in room B10. A complete history and physical examination was performed. I gave the patient at this time Bess Mujica to suck on and instructed her how to milk the duct. 1938: Ordered Toradol Inj 30 mg IV. 2124: Upon reexamination the patient is resting comfortably. I discussed results and treatment plan with the patient. She verbalizes agreement and understanding. The patient is ready for discharge. 2126: Ordered Oxycodone HCl 1 homepack PO. 2129: Ordered Augmentin Tab 875 mg PO. Medical Decision Differential diagnosis: Etiologies such as cellulitis, abscess, MRSA infection, DVT, necrotizing fasciitis, dermatitis, drug eruption, as well as others were entertained. This is a 37-year-old female who presents the emergency department complaining of swollen gland in her submandibular area. I will note the patient has no evidence of Souleymane's angina on physical examination. I suspect the gland she is feeling is a salivary gland and encouraged her to use sour candy and to massage the area. She was sent for CAT scan of the face which did not show any acute process or any evidence of cellulitis. She does have a slight elevation in her white blood cell count. The patient is allergic to penicillin but notes that she is able to take amoxicillin. Because of this I will place the patient on Augmentin. She was feeling better after Toradol and I feel can be safely discharged home for follow-up with her primary care physician as well as ear nose and throat. Patient was in agreement with the treatment plan. Medication Reconcilliation Current Medication List: was personally reviewed by me Blood Pressure Screening Patient's blood pressure: Elevated blood pressure Blood pressure disposition: Elevated BP felt to be situational Impression Primary Impression: Sialoadenitis of submandibular gland Scribe Attestation The scribe's documentation has been prepared under my direction and personally reviewed by me in its entirety. I confirm that the note above accurately reflects all work, treatment, procedures, and medical decision making performed by me. Departure Information Dispostion Home / Self-Care Prescriptions Oxycodone Immediate Rel Tab (ROXICODONE IR) 5 Mg Tab 1-2 TAB PO Q4H Y for Severe Pain, #14 TAB Prov: Mark Emanuel MD 11/20/17 Amoxicillin & Pot Clavulanate (Augmentin 875-125 mg) 1 Tab Tab 1 TAB PO BID for 10 Days, #20 TAB Prov: Mark Emanuel MD 11/20/17 Referrals Shalom Altman M.D. (PCP) Forms HOME CARE DOCUMENTATION FORM, IMPORTANT VISIT INFORMATION, WORK / SCHOOL INSTRUCTIONS Patient Instructions My [facility] Additional Instructions Return if you are unable to swallow or develop severe pain and fevers Follow up with Dr Latham's office You have been examined and treated today on an emergency basis only. This is not a substitute for, or an effort to provide, complete comprehensive medical care. It is impossible to recognize and treat all injuries or illnesses in a single emergency department visit. It is therefore important that you follow up closely with Dr Altman. Call as soon as possible for an appointment. Thank you for your time and consideration. I look forward to speaking with you again soon. Please don't hesitate to call us if you have any questions.
[2017-11-20 20:52] LABS: ALBUMIN 3.8 gm/dl (3.4-5.0); ALKALINE PHOSPHATASE 104 U/L (45-117); ALT/SGPT 72 U/L (12-78); AST/SGOT 53 U/L (15-37); BLOOD UREA NITROGEN 10 mg/dl (7-18); CALCIUM 8.8 mg/dl (8.5-10.1); CARBON DIOXIDE 26 mmol/L (21-32); CREATININE 0.81 mg/dl (0.60-1.20); GLUCOSE 81 mg/dl (70-99); LIPASE 230 U/L (73-393); SODIUM 137 mmol/L (136-145); TOTAL PROTEIN 7.8 gm/dl (6.4-8.2)
[2017-11-20] MEDS ORDERED: OXYCODONE IR HOME PACK PO STA (21:27)
[2017-11-20] MEDS ORDERED: AMOXICILLIN/CLAVULANATE TAB 875 MG TAB PO ONE (21:30)
[2017-11-20] MEDS ORDERED: AMOX875T PO (21:31)
[2017-11-20] MEDS ORDERED: OXYC1TAB3 PO (21:31)
[2017-11-20 21:39] VITALS: BP 142/81; PULSE 88; O2SAT 97
== END 2017-11-20 21:51 | disposition home or self-care (01) ==
LOC: C.EDB 18:04
DX: K11.21 Acute sialoadenitis (principal); R07.0 Pain in throat; F17.210 Nicotine dependence, cigarettes, uncomplicated; Z95.1 Presence of aortocoronary bypass graft; F41.9 Anxiety disorder, unspecified; Z79.899 Other long term (current) drug therapy; Z82.49 Family history of ischemic heart disease and other diseases of the circulatory system; Z88.0 Allergy status to penicillin; Z88.8 Allergy status to other drugs, medicaments and biological substances

== ENCOUNTER 2020-03-22 02:00 | Inpatient (IN) ==
[2020-03-22 02:18] LABS: Appearance Urine Clear (Clear); Bilirubin Urine Negative (Negative); Blood Urine Negative (Negative); Color Urine Yellow; Glucose Urine UA Negative (Negative); Ketones Urine Negative (Negative); Leukocyte Esterase Urine Negative (Negative); Nitrite Urine Negative (Negative); Protein Urine Negative (Negative); Specific Gravity Urine 1.013 (1.000-1.030); Urobilinogen Urine Negative (Negative)
[2020-03-22 02:37] LABS: Basophils # (auto) 0.03 K/uL (0-0.2); Basophils % (auto) 0.4 %; Eosinophils # (auto) 0.16 K/uL (0-0.5); Eosinophils % (auto) 2.3 %; Hemoglobin 14.8 g/dL (12.0-16.0); Immature Granulocytes # (auto) 0.02 K/uL (0.00-0.02); Immature Granulocytes % (auto) 0.3 %; Mean Corpuscular Hemoglobin 31.4 pg (25-34); Mean Corpuscular Hgb Conc 33.6 g/dL (32-36); Mean Corpuscular Volume 93.4 fL (80-100); Mean Platelet Volume 11.1 fL (7.4-10.4); Monocytes # (auto) 0.46 K/uL (0.11-0.59); Monocytes % (auto) 6.6 %; Neutrophils # (auto) 3.53 K/uL (1.4-6.5); Neutrophils % (auto) 50.4 %; Platelet Count 259 K/uL (130-400); RDW Coefficient of Variation 13.2 % (11.5-14.5); RDW Standard Deviation 45.5 fL (36.4-46.3); Red Blood Count 4.71 M/uL (4.2-5.4)
[2020-03-22] MEDS ORDERED: LORazepam 1 MG TAB SL STA ×2 (02:37→03:35)
[2020-03-22 02:43] LABS: Amphetamines+Metham, Urine Neg (Neg); Barbiturates, Urine Neg (Neg); Benzodiazepine, Urine Neg (Neg); Cocaine, Urine Neg (Neg); MDMA (Ecstacy), Urine Neg (Neg); Methadone, Urine Neg (Neg); Opiate, Urine Neg (Neg); Phencyclidine, Urine Neg (Neg)
--- NOTE | 2020-03-22 02:43 | Emergency Department Note ---
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 Fortunately gun did not discharge, but did shortly there-after in to the ground. She is intoxicated but alert and oriented and states this has been thought for some time due to extreme stress of having with cancer, daughter that is , ill father, and alcoholic mother, along with long family history of suicides and untimely deaths. She was given Ativan x 2 and gradually calming down. Given her metoprolol that she takes regularly. She is medically clear other than Alcohol. Signed out to Dr Wilkins pending sobering up and further mental health evaluation. Prior Medical Record and Triage/Nursing Notes reviewed by Me Additional history obtained from chart, case management Differentials:Mood disorder, infection, hypoglycemia, electrolyte abnormalities, cardiac sources, intracerebral event, toxicologic, trauma, neurologic, as well as other pathologies. Vital Signs: reviewed and remarkable for no significant abnormalities Interventions: Ativan 1mg SL x 2, Metoprolol 25mg PO Labs:Reviewed and remarkable for +etoh Imaging:none EKG:none Plan: Disposition:Signed out to Dr Wilkins Condition: Good Blood pressure:Normal.No Referral necessary Prescriptions:none PDMP: The [place] Prescription Drug Monitoring Program was reviewed regarding this patient. No concerning findings. History of Present Illness:39 yr old female arrives for evaluation following suicide attempt. Patient with long history of depression as well as previous suicide attempt several years ago on her heart medications. She notes that she has increased stress and depression secondary to being diagnosed with recurrence of cancer, daughter being with a "pedophile," father being terminally ill, and mother being an alcoholic, amongst other stressors in her life. Tonight she admits drinking some alcohol and then taking a gun to the back yard and trying to shoot herself in the head. Gun did not discharge, but when she put it down it did. She admitted to what happened and he called police who brought her in here voluntarily. She admits thinking about doing this for several days, including while not intoxicated. States she feels very ashamed of who she is and that she is too sad to live. She denies other recent suicide attempts. Denies any assault/injury to herself recently. She has not been using any drugs. She works as at a [employer] for troubled [employer]. States that depression has been ongoing since her younger brother overdosed on drugs 20 years ago. ROS: See above HPI for pertinent positives & negatives. A total of 10 systems reviewed and were otherwise negative. Past Medical History:Depression, Aortic Stenosis Past Surgical History:Aortic Valve Repair (open as child), amongst others Family History:Father Suicide, Mother Alcoholism Social History:, lives with /daughter, no drugs, smokes, occasional ETOH Home Medications:Effexor, Metoprolol Allergies:Opioids, Ampicillin Vitals:Blood Pressure: 120/72, Pulse 86, RR 18, T 36.8C, O2 97% on RA Physical Exam: GENERAL: Patient is very sad appearing and in moderate distress. Crying. Smells of alcohol EYES: No scleral icterus, unremarkable pupils. ENT: Mucous membranes moist, no nasal congestion. NECK: No masses appreciated, nomeningismus, trachea is midline. RESPIRATORY: No dyspnea. Clear to auscultation and equal bilaterally. No wheeze, no rhonchi. CARDIOVASCULAR: Regular rate and rhythm.mild systolic murmur, no rubs, no gallops appreciated. GASTROINTESTINAL: Abdomen soft, non-tender, no peritonitis.Bowel sounds positive.No masses appreciated. BACK: No midline tenderness, no CVA tenderness EXTREMITIES: Normal motion all extremities, no cyanosis, no edema. NEUROLOGIC: Intoxicated, Alert and oriented, no acute motor or sensory deficits, no focal weakness, cranial nerves grossly intact. SKIN: No rash, no jaundice, no diaphoresis. PSYCH: Intoxicated though alert and oriented, Sad/depressed, crying, admits suicidal ideation and attempt, denies hallucinations, denies homicidal ideation GCS: 15 ED Course: Times/Reassessments: gradually calming down Avila Colon MD Past Med/Surg History Social History Smoking Status: Current every day smoker Tobacco Type: Cigarettes Feels Safe at Home: Yes Allergies Allergies Allergy/AdvReac Type Severity Reaction Status Date / Time codeine Allergy Hives Verified 03/22/20 02:21 Opioids - Morphine Analogues Allergy Hives Verified 03/22/20 02:21 Opioids-Meperidine and Allergy Hives Verified 03/22/20 02:21 Related ampicillin AdvReac Hives Verified 03/22/20 02:21 Home Meds Home Medications Medication Instructions Recorded Confirmed Effexor XR 175 mg PO DAILY 03/22/20 03/22/20 Lopressor 100 mg PO BID 03/22/20 03/22/20 Results & Data (ED) Vital Signs Vital Signs - 24 hr 03/22/20 02:11 03/22/20 03:40 03/22/20 05:58 Temperature 36.8 C Temperature Source Oral Pulse Rate 86 Pulse Rate [Left Apical] 92 H 80 Pulse Rhythm [Left Apical] Regular Pulse Strength [Left Apical] Normal Respiratory Rate 18 24 18 Respiratory Depth Normal Blood Pressure 120/72 Blood Pressure [Right Arm] 101/76 103/67 Blood Pressure Mean 88 Blood Pressure Mean [Right Arm] 84 79 Pulse Oximetry 97 98 94 Oxygen Delivery Method Room Air Room Air Room Air Sepsis Recent Fever Within 48 Hours No Sepsis New/Unexplained Change in Mental Status No Sepsis Action Taken by Nursing No Action Required Laboratory Data Result diagrams: 03/22/20 02:20 03/22/20 02:20 Lab Results 03/22/20 03/22/20 03/22/20 Range/Units 02:05 02:05 02:05 WBC (4.8-10.8) K/uL RBC (4.2-5.4) M/uL Hgb (12.0-16.0) g/dL Hct (37-47) % MCV (80-100) fL MCH (25-34) pg MCHC (32-36) g/dL RDW Std Deviation (36.4-46.3) fL RDW Coeff of Gianfranco (11.5-14.5) % Plt Count (130-400) K/uL MPV (7.4-10.4) fL Immature Gran % (Auto) % Neut % (Auto) % Lymph % (Auto) % [place] % (Auto) % Eos % (Auto) % Baso % (Auto) % Neut # (Auto) (1.4-6.5) K/uL Lymph # (Auto) (1.2-3.4) K/uL [place] # (Auto) (0.11-0.59) K/uL Eos # (Auto) (0-0.5) K/uL Baso # (Auto) (0-0.2) K/uL Immature Gran # (Auto) (0.00-0.02) K/uL Sodium (136-145) mmol/L Potassium (3.5-5.1) mmol/L Chloride (98-107) mmol/L Carbon Dioxide (21-32) mmol/L Anion Gap (3-11) BUN (7-18) mg/dl Creatinine (0.6-1.2) mg/dl Est Cr Clr Drug Dosing ml/min Est GFR ( Amer) Est GFR (Non-Af Amer) BUN/Creatinine Ratio (10-20) Glucose (70-99) mg/dl Calcium (8.5-10.1) mg/dl Total Bilirubin (0.2-1) mg/dl AST (15-37) U/L ALT (12-78) U/L Alkaline Phosphatase (45-117) U/L Total Protein (6.4-8.2) gm/dl Albumin (3.4-5.0) gm/dl Globulin (2.5-4.0) gm/dl Albumin/Globulin Ratio (0.9-2) TSH (0.300-4.500) uIu/ml Urine Color Yellow Urine Appearance Clear (Clear) Urine pH 5.0 (4.5-7.5) Ur Specific [place] 1.013 (1.000-1.030) Urine Protein Negative (Negative) Urine Glucose (UA) Negative (Negative) Urine Ketones Negative (Negative) Urine Blood Negative (Negative) Urine Nitrite Negative (Negative) Urine Bilirubin Negative (Negative) Urine Urobilinogen Negative (Negative) Ur Leukocyte Esterase Negative (Negative) POC Ur Test NEG (NEG) Salicylates (2.8-20) mg/dl Urine Opiates Screen Neg (Neg) Ur Methadone, Qual Neg (Neg) Acetaminophen (10-30) ug/ml Urine Barbiturates Neg (Neg) Ur Phencyclidine (PCP) Neg (Neg) U Amphetamin/Meth Scrn Neg (Neg) MDMA (Ecstasy) Screen Neg (Neg) U Benzodiazepines Scrn Neg (Neg) Ur Cocaine Metabolite Neg (Neg) U Marijuana (THC) Screen Neg (Neg) Ethyl Alcohol mg/dL (0-3) mg/dl 03/22/20 03/22/20 03/22/20 Range/Units 02:20 02:20 02:20 WBC 7.00 (4.8-10.8) K/uL RBC 4.71 (4.2-5.4) M/uL Hgb 14.8 (12.0-16.0) g/dL Hct 44.0 (37-47) % MCV 93.4 (80-100) fL MCH 31.4 (25-34) pg MCHC 33.6 (32-36) g/dL RDW Std Deviation 45.5 (36.4-46.3) fL RDW Coeff of Gianfranco 13.2 (11.5-14.5) % Plt Count 259 (130-400) K/uL MPV 11.1 H (7.4-10.4) fL Immature Gran % (Auto) 0.3 % Neut % (Auto) 50.4 % Lymph % (Auto) 40.0 % [place] % (Auto) 6.6 % Eos % (Auto) 2.3 % Baso % (Auto) 0.4 % Neut # (Auto) 3.53 (1.4-6.5) K/uL Lymph # (Auto) 2.80 (1.2-3.4) K/uL [place] # (Auto) 0.46 (0.11-0.59) K/uL Eos # (Auto) 0.16 (0-0.5) K/uL Baso # (Auto) 0.03 (0-0.2) K/uL Immature Gran # (Auto) 0.02 (0.00-0.02) K/uL Sodium 146 H (136-145) mmol/L Potassium 3.6 (3.5-5.1) mmol/L Chloride 114 H (98-107) mmol/L Carbon Dioxide 24 (21-32) mmol/L Anion Gap 8.0 (3-11) BUN 7 (7-18) mg/dl Creatinine 0.68 (0.6-1.2) mg/dl Est Cr Clr Drug Dosing 88.7 ml/min Est GFR ( Amer) 128.6 Est GFR (Non-Af Amer) 111.0 BUN/Creatinine Ratio 9.9 L (10-20) Glucose 98 (70-99) mg/dl Calcium 8.0 L (8.5-10.1) mg/dl Total Bilirubin 0.3 (0.2-1) mg/dl AST 17 (15-37) U/L ALT 27 (12-78) U/L Alkaline Phosphatase 61 (45-117) U/L Total Protein 7.5 (6.4-8.2) gm/dl Albumin 4.0 (3.4-5.0) gm/dl Globulin 3.5 (2.5-4.0) gm/dl Albumin/Globulin Ratio 1.1 (0.9-2) TSH 1.680 (0.300-4.500) uIu/ml Urine Color Urine Appearance (Clear) Urine pH (4.5-7.5) Ur Specific [place] (1.000-1.030) Urine Protein (Negative) Urine Glucose (UA) (Negative) Urine Ketones (Negative) Urine Blood (Negative) Urine Nitrite (Negative) Urine Bilirubin (Negative) Urine Urobilinogen (Negative) Ur Leukocyte Esterase (Negative) POC Ur Test (NEG) Salicylates 2.4 L (2.8-20) mg/dl Urine Opiates Screen (Neg) Ur Methadone, Qual (Neg) Acetaminophen < 2 L (10-30) ug/ml Urine Barbiturates (Neg) Ur Phencyclidine (PCP) (Neg) U Amphetamin/Meth Scrn (Neg) MDMA (Ecstasy) Screen (Neg) U Benzodiazepines Scrn (Neg) Ur Cocaine Metabolite (Neg) U Marijuana (THC) Screen (Neg) Ethyl Alcohol mg/dL (0-3) mg/dl 03/22/20 Range/Units 02:20 WBC (4.8-10.8) K/uL RBC (4.2-5.4) M/uL Hgb (12.0-16.0) g/dL Hct (37-47) % MCV (80-100) fL MCH (25-34) pg MCHC (32-36) g/dL RDW Std Deviation (36.4-46.3) fL RDW Coeff of Gianfranco (11.5-14.5) % Plt Count (130-400) K/uL MPV (7.4-10.4) fL Immature Gran % (Auto) % Neut % (Auto) % Lymph % (Auto) % [place] % (Auto) % Eos % (Auto) % Baso % (Auto) % Neut # (Auto) (1.4-6.5) K/uL Lymph # (Auto) (1.2-3.4) K/uL [place] # (Auto) (0.11-0.59) K/uL Eos # (Auto) (0-0.5) K/uL Baso # (Auto) (0-0.2) K/uL Immature Gran # (Auto) (0.00-0.02) K/uL Sodium (136-145) mmol/L Potassium (3.5-5.1) mmol/L Chloride (98-107) mmol/L Carbon Dioxide (21-32) mmol/L Anion Gap (3-11) BUN (7-18) mg/dl Creatinine (0.6-1.2) mg/dl Est Cr Clr Drug Dosing ml/min Est GFR ( Amer) Est GFR (Non-Af Amer) BUN/Creatinine Ratio (10-20) Glucose (70-99) mg/dl Calcium (8.5-10.1) mg/dl Total Bilirubin (0.2-1) mg/dl AST (15-37) U/L ALT (12-78) U/L Alkaline Phosphatase (45-117) U/L Total Protein (6.4-8.2) gm/dl Albumin (3.4-5.0) gm/dl Globulin (2.5-4.0) gm/dl Albumin/Globulin Ratio (0.9-2) TSH (0.300-4.500) uIu/ml Urine Color Urine Appearance (Clear) Urine pH (4.5-7.5) Ur Specific [place] (1.000-1.030) Urine Protein (Negative) Urine Glucose (UA) (Negative) Urine Ketones (Negative) Urine Blood (Negative) Urine Nitrite (Negative) Urine Bilirubin (Negative) Urine Urobilinogen (Negative) Ur Leukocyte Esterase (Negative) POC Ur Test (NEG) Salicylates (2.8-20) mg/dl Urine Opiates Screen (Neg) Ur Methadone, Qual (Neg) Acetaminophen (10-30) ug/ml Urine Barbiturates (Neg) Ur Phencyclidine (PCP) (Neg) U Amphetamin/Meth Scrn (Neg) MDMA (Ecstasy) Screen (Neg) U Benzodiazepines Scrn (Neg) Ur Cocaine Metabolite (Neg) U Marijuana (THC) Screen (Neg) Ethyl Alcohol mg/dL 245.0 H (0-3) mg/dl Administered Medications Discontinued Medications Ibuprofen (Ibuprofen 600 Mg Tab) 600 mg PO NOW STA Stop: 03/22/20 03:52 Last Admin: 03/22/20 03:54 Dose: 600 mg Documented by: [id number] Lorazepam (Lorazepam 1 Mg Tab) 1 mg SL NOW STA Stop: 03/22/20 02:38 Last Admin: 03/22/20 02:42 Dose: 1 mg Documented by: [id number] Lorazepam (Lorazepam 1 Mg Tab) 1 mg SL NOW STA Stop: 03/22/20 03:36 Last Admin: 03/22/20 03:39 Dose: 1 mg Documented by: [id number] Metoprolol Tartrate (Metoprolol Tartrate 25 Mg Tab) 25 mg PO NOW STA Stop: 03/22/20 03:52 Last Admin: 03/22/20 03:54 Dose: 25 mg Documented by: [id number] Discharge Plan Visit Data Chief Complaint: Mental Health Evaluation Stated Complaint: MENTAL HEALTH ED Provider: Avila Colon Discharge Problem: Suicide attempt, Alcohol intoxication, Anxiety as acute reaction to exceptional stress, Depression Forms Stand Alone Forms: [facility], Suicide Prevention Resources Prescriptions Prescriptions: No Action Effexor XR 175 mg PO DAILY RF: 0 Lopressor 100 mg PO BID RF: 0 Discharge Problem: Alcohol intoxication Qualifiers: Complication of substance-induced condition: uncomplicated Qualified Code(s): F10.920 - Alcohol use, unspecified with intoxication, uncomplicated Depression Qualifiers: Depression Type: major depressive disorder Major depression recurrence: recurrent Active/Remission status: currently active Major depression episode severity: moderate Qualified Code(s): F33.1 - Major depressive disorder, recurrent, moderate
[2020-03-22 02:58] LABS: BUN Creatinine Ratio 9.9 (10-20); Creatinine Clr Calc Pharmacy 88.7 ml/min; Est GFR (African American) 128.6; Potassium 3.6 mmol/L (3.5-5.1)
[2020-03-22 03:08] LABS: Albumin Globulin Ratio 1.1 (0.9-2); Bilirubin,Total 0.3 mg/dl (0.2-1); Globulin 3.5 gm/dl (2.5-4.0); Thyroid Stimulating Hormone 1.68 uIu/ml (0.300-4.500); Total Protein 7.5 gm/dl (6.4-8.2)
[2020-03-22 03:12] LABS: Acetaminophen < 2 ug/ml (10-30); Salicylate 2.4 mg/dl (2.8-20)
[2020-03-22] MEDS ORDERED: METOPROLOL TARTRATE 25 MG TAB PO STA (03:51)
[2020-03-22] MEDS ORDERED: IBUPROFEN 600 MG TAB PO STA (03:51)
--- NOTE | 2020-03-22 07:22 | Emergency Department Note ---
ED Visit Note Patient was signed out to me at the change of shift. Patient has suicidal ideations with an active furtherance. Agreeable to come in on 201. Deemed medically stable by Dr. Colon once sober. Patient accepted to 3 S. on a 201. . : Alcohol intoxication Qualifiers: Complication of substance-induced condition: uncomplicated Qualified Code(s): F10.920 - Alcohol use, unspecified with intoxication, uncomplicated Depression Qualifiers: Depression Type: major depressive disorder Major depression recurrence: recurrent Active/Remission status: currently active Major depression episode severity: moderate Qualified Code(s): F33.1 - Major depressive disorder, re current, moderate
[2020-03-22] MEDS ORDERED: LOPRESSOR 100 MG PO SCH (09:00)
[2020-03-22] MEDS ORDERED: VENLAFAXINE PO SCH (09:00)
[2020-03-22] MEDS ORDERED: METOPROLOL TARTRATE 100 MG TAB PO SCH (09:45)
[2020-03-22] MEDS ORDERED: VENLAFAXINE HCL XR 150 MG CAPXR PO SCH (09:45)
[2020-03-22] MEDS ORDERED: MAGNESIUM HYDROXIDE SUSP 30 ML UDC PO PRN (10:57)
[2020-03-22] MEDS ORDERED: SODIUM CHLORIDE 0.65% NA SOLN 45 ML (OCEAN) PRN (10:57)
[2020-03-22] MEDS ORDERED: ALUMINUM/MAGNESIUM SUSP 30 ML UDC PO PRN (10:57)
[2020-03-22] MEDS ORDERED: ACETAMINOPHEN 325 MG TAB PO PRN (10:57)
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
[2020-03-22] MEDS ORDERED: IBUPROFEN 600 MG TAB PO PRN (12:09)
[2020-03-22] MEDS: IBUPROFEN 800 MG TAB PO PRN ×2 (13:28→21:12)
[2020-03-22] MEDS ORDERED: NICOTINE POLACRILEX 2 MG GUM MT PRN (15:09)
[2020-03-22] MEDS: NICOTINE 14 MG/24 HR PATCH TD SCH (17:02)
[2020-03-22] MEDS: METOPROLOL TARTRATE 50 MG TAB PO SCH ×2 (17:09→21:11)
[2020-03-23] MEDS: DULOXETINE HCL 30 MG CAP PO SCH (10:06)
[2020-03-23] MEDS: NICOTINE 14 MG/24 HR PATCH TD SCH (10:06)
[2020-03-23] MEDS: VENLAFAXINE HCL XR 75 MG CAPXR PO SCH (10:10)
[2020-03-23] MEDS: METOPROLOL TARTRATE 50 MG TAB PO SCH ×4 (10:40→21:49)
--- NOTE | 2020-03-23 12:16 | Psychiatric Progress Note ---
Date of Service March 23, 2020 Impression / Recommendations Impression 39-year-old female admitted voluntary on 03/22/2020 for inpatient psychiatric treatment after presenting to the ED via state police following a suicide attempt by gunshot. She held a loaded gun to her head, but it did not fire when she pulled the trigger, and instead, fired when she put it on the ground. Pt reportedly called her brother afterward, and family called police. She has multiple psychosocial stressors, including multiple deaths in the family, diagnosed with cancer, and 16 year old daughter's . She has a history of anxiety and depression, and was seen by our service for intentional overdose in 2016, and although psychiatric hospitalization was recommended, she was discharged. She has had numerous previous suicide attempts, but no psychiatric treatment. Pt has been prescribed venlafaxine since 2001, and as it was no longer effective, she is being cross tapered to duloxetine, in order to target chronic pain as well. She also meets criteria for PTSD, as she has flashbacks and nightmares of her younger brother after his . She will be referred for outpatient therapy and psychiatry, and recommend a family meeting. She remains at acute risk of suicide, and inpatient psychiatric treatment is medically necessary at this time. (1) Suicide attempt: 03/22 - Admitted to a locked inpatient behavioral health unit, on q15 minute safety checks - Encourage medication initiation/adjustments as indicated - Encourage participation in group and recreational therapies - Gather collateral information from outpatient providers - Suggest family meeting to involve outpatient supports in safety planning - Arrange appropriate aftercare (2) Depression: 03/22 - Pt requesting medication adjustments, as she feels venlafaxine is no longer effective for mood/anxiety. After discussing several options, patient reports desire to trial duloxetine. Will plan slow cross-taper, patient with history of discontinuation syndrome with attempts to stop venlafaxine in the past. Will reduce venlafaxine to 75mg tomorrow morning, and initiated duloxetine at 30mg. Continue cross-taper as tolerated. - Obtain collateral information from family/supports - Schedule family meeting to discuss discharge and safety planning - Refer for outpatient psychiatry and therapy - Encourage attendance of group programming and assist with development of healthy and effective coping strategies 03/22 -Continue current medications, schedule family meeting, and refer for outpatient treatment. (3) Aortic regurgitation: 03/22 - Continue metoprolol. 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 (4) Alcohol intoxication: 03/22 - Pt admits to history of significant alcohol abuse, but no consistent alcohol use in the past 1-2 years. Does not identify alcohol use as a primary concern - Suicidal ideation was present even prior to alcohol ingestion - BAL on admission was 245 Risk Factors Assessment Male: No : Yes Do You Have Access To A Gun?: Yes (partner collects guns, firearm in nightstand) Health Problems: Yes Mental Health Diagnoses: Yes Previous Attempt: Yes Family History of Suicide: Yes Previous Psychiatric Hospitalization: No (but has been recommended) Hopelessness: Yes Smoker: Yes Protective Factors Assessment Caodaism Beliefs: No : No (but committed to partner of 23 years) Responsible for Young Children: Yes Employed: Yes ([employer]) Stable Relationships: Yes Interval History Identifying Information ANNABELLA BRAN is a 39-year-old F who currently lives in [place] with her and teenage daughter. Pt has a history of depression, anxiety, and previous suicide attempts - but has not previously had inpatient psychiatric treatment. Pt and was admitted on 03/22/20 11:51 on a 201 voluntary commitment after she was brought to the ED by [employer] following a suicide attempt by gun shot, firearm misfiring. Chief Complaint " Okay, I miss home". Review of Systems Sleep Information Total Hours of Sleep: 7.25 Meal Information Percent Meal Consumed - Lunch: 60 Percent Meal Consumed - Dinner: 50 Subjective Subjective Patient was seen & assessed and interval progress reviewed with nursing and social work. Staff report she appears severely depressed, refused some groups and attended others, and rated her mood at 2/10. She reported feeling "lost and anxious." She has had minimal interaction with staff and peers, spending most of her free time in her room. On my assessment, she states that she is "lonely," and misses home. She is hoping to be discharged in the next day or 2 so that she can return to work in 2 days, when reflected that that was very soon given the severity of her suicide attempt, she said the way that she could return to work would be Sunday (4 days from now). She is tolerating the medication changes well. She states that suicidal thoughts are lessening, and that she feels "ashamed, embarrassed" about her suicide attempt. She remembers "most of" what happened, and states she was home alone when she tried to end her life. She now feels "it was stupid." She says she needs to prioritize taking care of her own mental health symptoms, stating she has always been embarrassed to ask for help and wants to be seen as the strong one in the family, so keeps all of her emotions and. She complains of poor sleep, stating hydroxyzine helped her to fall asleep, but she was unable to stay asleep, despite taking 2 doses. This is a longstanding problem for years, and has tried melatonin and Benadryl at home with the same response. She reports she falls asleep easily, but then wakes up multiple times overnight, her mind races, and she cannot fall back asleep. Physical Exam Psychiatric Orientation: alert and cooperative Apperance: appropriately dressed, appropriately groomed and appeared stated age Wearing dark eyeliner, nose piercing, seated in no acute distress. Eye Contact: + fair eye contact Motor Behavior: steady gait and station and no abnormal motor movements Speech: normal rate/rhythm/volume of speech Affect: + depressed affect "Lonely." Thought Process: goal directed thought process Thought Content: + cognitive distortions, + worthlessness and + guilt Suicidal Thoughts: + reports suicidal thoughts Lessened from admission. Homicidal Thoughts: denies homicidal thoughts Hallucinations: no auditory hallucinations Cognition: attention grossly intact and language grossly intact Insight: + impaired insight Judgement: + impaired judgement Vital Signs (Past 24 Hours) Last Vital Signs Temp 36.7 C 03/23/20 06:39 Pulse 72 03/23/20 06:39 Resp 18 03/23/20 06:39 BP 131/81 03/23/20 06:39 Pulse Ox 99 03/22/20 11:10 Results & Data ([facility]) Current Inpatient Medications Current Inpatient Medications: Current Inpatient Medications Acetaminophen (Acetaminophen 325 Mg Tab) 650 mg PO Q4H PRN PRN Reason: Headache or Minor Fever Stop: 04/21/20 10:56 Al Hydrox/Mg Hydrox/Simethicone (Aluminum/Magnesium Susp 30 Ml Udc) 30 ml PO Q4H PRN PRN Reason: GI Upset Stop: 04/21/20 10:56 Bismuth Subsalicylate (Bismuth Subsalicylate Per Ml Omnicell Charge) 15 ml PO PRN PRN PRN Reason: Loose Stool Stop: 04/21/20 10:56 Duloxetine HCl (Duloxetine Hcl 30 Mg Cap) 30 mg PO QAM [facility] Stop: 04/22/20 08:59 Last Admin: 03/23/20 10:06 Dose: 30 mg Documented by: Hydroxyzine HCl (Hydroxyzine Hcl 25 Mg Tab) 50 mg PO HSZ PRN PRN Reason: Insomnia Stop: 04/21/20 10:56 Last Admin: 03/22/20 22:05 Dose: 50 mg Documented by: Hydroxyzine HCl (Hydroxyzine Hcl 25 Mg Tab) 25 mg PO Q4H PRN PRN Reason: Anxiety Stop: 04/21/20 10:56 Last Admin: 03/22/20 13:28 Dose: 25 mg Documented by: Ibuprofen (Ibuprofen 800 Mg Tab) 800 mg PO Q8H PRN PRN Reason: Pain Stop: 04/21/20 10:58 Last Admin: 03/22/20 21:12 Dose: 800 mg Documented by: Magnesium Hydroxide (Magnesium Hydroxide Susp 30 Ml Udc) 30 ml PO DAILY PRN PRN Reason: Constipation Stop: 04/21/20 10:56 Metoprolol Tartrate (Metoprolol Tartrate 50 Mg Tab) 50 mg PO QID [facility] Stop: 04/21/20 16:59 Last Admin: 03/23/20 10:40 Dose: 50 mg Documented by: Miscellaneous (Remove Nicoderm Patch) 1 ea N/A DAILY@0859 [facility] Stop: 04/22/20 08:58 Last Admin: 03/23/20 10:15 Dose: 1 ea Documented by: Nicotine (Nicotine 14 Mg/24 Hr Patch) [facility] [place]: 04/21/20 15:29 Last Admin: 03/23/20 10:06 Dose: 14 mg Documented by: Nicotine Polacrilex (Nicotine Polacrilex 2 Mg Gum) 1 piece MT PRN PRN PRN Reason: nicotine cravings Stop: 04/21/20 15:08 Sodium Chloride (Sodium Chloride 0.65% Na Soln 45 Ml ([place])) 1 - 2 sprays NA PRN PRN PRN Reason: Nasal Dryness/Congestion Stop: 04/21/20 10:56 Venlafaxine HCl (Venlafaxine Hcl Xr 75 Mg Capxr) 75 mg PO DAILY [facility]ATIE; Protocol Stop: 04/22/20 08:59 Last Admin: 03/23/20 10:10 Dose: 75 mg Documented by: Mental Health & Subst Abuse Tx Therapist Name of Therapist: None Animal Doctor Name of Animal Doctor: Denies Post Discharge Appointments Primary Care Physician Name Of Family Doctor: Dr Altman Contact Information Discharge Discharge Address: [address] [place] [id number] (1) Depression Active/Remission status: currently active Depression Type: major depressive disorder Major depression episode severity: severe Major depression recurrence: recurrent Psychotic features: without psychotic features Qualified Code(s): F33.2 - Major depressive disorder, recurrent severe without psychotic features (2) Alcohol intoxication Complication of substance-induced condition: uncomplicated Qualified Code(s): F10.920 - Alcohol use, unspecified with intoxication, uncomplicated
[2020-03-23] MEDS: TRAZODONE HCL 50 MG TAB PO PRN (21:49)
[2020-03-24] MEDS: DULOXETINE HCL 30 MG CAP PO SCH (08:55)
[2020-03-24] MEDS: VENLAFAXINE HCL XR 75 MG CAPXR PO SCH (08:55)
[2020-03-24] MEDS: METOPROLOL TARTRATE 50 MG TAB PO SCH ×4 (08:56→21:09)
[2020-03-24] MEDS: NICOTINE 14 MG/24 HR PATCH TD SCH (08:58)
--- NOTE | 2020-03-24 11:15 | Psychiatric Progress Note ---
Date of Service March 24, 2020 Impression / Recommendations Impression 39-year-old female admitted voluntary on 03/22/2020 for inpatient psychiatric treatment after presenting to the ED via state police following a suicide attempt by gunshot. She held a loaded gun to her head, but it did not fire when she pulled the trigger, and instead, fired when she put it on the ground. Pt reportedly called her brother afterward, and family called police. She has multiple psychosocial stressors, including multiple deaths in the family, diagnosed with cancer, and 16 year old daughter's . She has a history of anxiety and depression, and was seen by our service for intentional overdose in 2016, and although psychiatric hospitalization was recommended, she was discharged. She has had numerous previous suicide attempts, but no psychiatric treatment. Pt has been prescribed venlafaxine since 2001, and as it was no longer effective, she is being cross tapered to duloxetine, in order to target chronic pain as well. She also meets criteria for PTSD, as she has flashbacks and nightmares of her younger brother after his . She will be referred for outpatient therapy and psychiatry. Family meeting to be held this afternoon with via phone. Pt will still need to complete safety plan and we will need to ensure guns and medications have been secured. She remains at acute risk of suicide, and inpatient psychiatric treatment is medically necessary at this time. (1) Suicide attempt: 03/22 - Admitted to a locked inpatient behavioral health unit, on q15 minute safety checks - Encourage medication initiation/adjustments as indicated - Encourage participation in group and recreational therapies - Gather collateral information from outpatient providers - Suggest family meeting to involve outpatient supports in safety planning - Arrange appropriate aftercare (2) Depression: 03/22 - Pt requesting medication adjustments, as she feels venlafaxine is no longer effective for mood/anxiety. After discussing several options, patient reports desire to trial duloxetine. Will plan slow cross-taper, patient with history of discontinuation syndrome with attempts to stop venlafaxine in the past. Will reduce venlafaxine to 75mg tomorrow morning, and initiated duloxetine at 30mg. Continue cross-taper as tolerated. - Obtain collateral information from family/supports - Schedule family meeting to discuss discharge and safety planning - Refer for outpatient psychiatry and therapy - Encourage attendance of group programming and assist with development of healthy and effective coping strategies 03/23 -Continue current medications, schedule family meeting, and refer for outpatient treatment. 03/24 - Pt reports some mild lightheadedness, but otherwise denies medication side effects or symptoms of discontinuation syndrome. Will continue with next step of cross-taper - ordering venlafaxine 37.5mg and duloxetine 60mg for tomorrow morning - Family meeting with scheduled for today - need to ensure guns and medications are secured, discuss safety and discharge planning - Pt will still require outpatient psychiatric services - Denies SI, but admits to feeling "ashamed and embarrassed about what I did" (3) Aortic regurgitation: 03/22 - Continue metoprolol. Pt reports taking 50mg QID as opposed to 100mg BID, reports she has shared this with her outpatient slide forming machine tender - Continue outpatient follow-up with cardiology, next appointment reported to be 04/12. (4) Post traumatic stress disorder: 03/22 - as above - Referral for outpatient therapy (5) Alcohol intoxication: 03/22 - Pt admits to history of significant alcohol abuse, but no consistent alcohol use in the past 1-2 years. Does not identify alcohol use as a primary concern - Suicidal ideation was present even prior to alcohol ingestion - BAL on admission was 245 Risk Factors Assessment Male: No : Yes Do You Have Access To A Gun?: Yes (partner collects guns, firearm in nightstand) Health Problems: Yes Mental Health Diagnoses: Yes Previous Attempt: Yes Family History of Suicide: Yes Previous Psychiatric Hospitalization: No (but has been recommended) Hopelessness: Yes Smoker: Yes Protective Factors Assessment Orthodox Beliefs: No : No (but committed to partner of 23 years) Responsible for Young Children: Yes Employed: Yes ([employer]) Stable Relationships: Yes Interval History Identifying Information ANNABELLA BRAN is a 39-year-old F who currently lives in [place] with her and teenage daughter. Pt has a history of depression, anxiety, and previous suicide attempts - but has not previously had inpatient psychiatric treatment. Pt and was admitted on 03/22/20 11:51 on a 201 voluntary commitment after she was brought to the ED by [employer] following a suicide attempt by gun shot, firearm misfiring. Chief Complaint "Um, I'm ok. Doing better I guess." Review of Systems Notes Constitutional: reports mild "lightheadedness" Cardiovascular: denied Respiratory: denied Gastrointestinal: denied Neurological: denied Psychiatric: denies symptoms other than stated above Total of at least 10 systems reviewed, pertinent positives as above and in HPI. Sleep Information Total Hours of Sleep: 6.5 Sleep Comments: pt given trazodone per rn. pt on q-15 minute checks Meal Information Percent Meal Consumed - Breakfast: 90 Percent Meal Consumed - Lunch: 80 Percent Meal Consumed - Dinner: 80 Subjective Subjective Patient was seen & assessed and interval progress reviewed with treatment team. Staff report the patient has been participating in group programming, but was described as guarded, anxious, and on-edge. Pt was reportedly ambiguous about SI during conversations with staff last evening. She still requires psychiatric appointments for discharge planning. Pt was seen today to assess progress since admission. Pt states "Um, I'm ok. Doing better I guess." She admits that sleep was improved last evening with the addition of trazodone - "I still woke up like 4 times during the night, but it was easier to go back to sleep. Pt denies significant physical concerns or medications side effects aside from "mild lightheadedness, it's kind of how I felt when I came off Effexor before." Pt admits that it has been improved as the day has gone on. She admits to feeling comfortable with moving forward with the next step of this cross-taper to duloxetine tomorrow morning. Pt denies active SI, but does admit "I don't know how I'll face my and daughter. I feel a lot of shame and embarrassment." Pt is anticipating a family meeting with her this afternoon, and is aware of need to develop a safety plan to ensure guns and medications are secured. She denies other needs or concerns at this time. Physical Exam Psychiatric Orientation: alert, oriented x 3 and cooperative Apperance: appropriately dressed, appropriately groomed and appeared stated age Eye Contact: good eye contact Motor Behavior: steady gait and station and no abnormal motor movements Speech: normal rate/rhythm/volume of speech Affect: + depressed affect and + blunted affect Mood: + depressed mood and + anxious mood Thought Process: goal directed thought process and clear/coherent thought process Thought Content: reality based without delusions, + guilt and + self deprecation reports ruminative thoughts of shame and embarrassment Suicidal Thoughts: denies suicidal thoughts Homicidal Thoughts: denies homicidal thoughts Hallucinations: no auditory hallucinations and no visual hallucinations Cognition: recent memory grossly intact, attention grossly intact and language grossly intact Estimated Intelligence: consistent with education level Insight: + fair insight Judgement: + fair judgement Vital Signs (Past 24 Hours) Last Vital Signs Temp 36.5 C 03/24/20 06:41 Pulse 60 03/24/20 06:42 Resp 18 03/24/20 06:41 BP 110/72 03/24/20 06:42 Pulse Ox 98 03/23/20 13:33 Results & Data ([facility]) Current Inpatient Medications Current Inpatient Medications: Current Inpatient Medications Acetaminophen (Acetaminophen 325 Mg Tab) 650 mg PO Q4H PRN PRN Reason: Headache or Minor Fever Stop: 04/21/20 10:56 Al Hydrox/Mg Hydrox/Simethicone (Aluminum/Magnesium Susp 30 Ml Udc) 30 ml PO Q4H PRN PRN Reason: GI Upset Stop: 04/21/20 10:56 Bismuth Subsalicylate (Bismuth Subsalicylate Per Ml Omnicell Charge) 15 ml PO PRN PRN PRN Reason: Loose Stool Stop: 04/21/20 10:56 Duloxetine HCl (Duloxetine Hcl 30 Mg Cap) 30 mg PO QAM [facility] Stop: 04/22/20 08:59 Last Admin: 03/24/20 08:55 Dose: 30 mg Documented by: Hydroxyzine HCl (Hydroxyzine Hcl 25 Mg Tab) 50 mg PO HSZ PRN PRN Reason: Insomnia Stop: 04/21/20 10:56 Last Admin: 03/22/20 22:05 Dose: 50 mg Documented by: Hydroxyzine HCl (Hydroxyzine Hcl 25 Mg Tab) 25 mg PO Q4H PRN PRN Reason: Anxiety Stop: 04/21/20 10:56 Last Admin: 03/23/20 13:40 Dose: 25 mg Documented by: Ibuprofen (Ibuprofen 800 Mg Tab) 800 mg PO Q8H PRN PRN Reason: Pain Stop: 04/21/20 10:58 Last Admin: 03/22/20 21:12 Dose: 800 mg Documented by: Magnesium Hydroxide (Magnesium Hydroxide Susp 30 Ml Udc) 30 ml PO DAILY PRN PRN Reason: Constipation Stop: 04/21/20 10:56 Metoprolol Tartrate (Metoprolol Tartrate 50 Mg Tab) 50 mg PO QID [facility] Stop: 04/21/20 16:59 Last Admin: 03/24/20 08:56 Dose: 50 mg Documented by: Miscellaneous (Remove Nicoderm Patch) 1 ea N/A DAILY@0859 [facility] Stop: 04/22/20 08:58 Last Admin: 03/24/20 08:58 Dose: 1 ea Documented by: Nicotine (Nicotine 14 Mg/24 Hr Patch) 14 mg TD QAM [facility] Stop: 04/21/20 15:29 Last Admin: 03/24/20 08:58 Dose: 14 mg Documented by: Nicotine Polacrilex (Nicotine Polacrilex 2 Mg Gum) 1 piece MT PRN PRN PRN Reason: nicotine cravings Stop: 04/21/20 15:08 Sodium Chloride (Sodium Chloride 0.65% Na Soln 45 Ml ([place])) 1 - 2 sprays NA PRN PRN PRN Reason: Nasal Dryness/Congestion Stop: 04/21/20 10:56 Trazodone HCl (Trazodone Hcl 50 Mg Tab) 50 mg PO HS PRN PRN Reason: insomnia Stop: 04/22/20 21:59 Last Admin: 03/23/20 21:49 Dose: 50 mg Documented by: Venlafaxine HCl (Venlafaxine Hcl Xr 75 Mg Capxr) 75 mg PO DAILY [facility]; Protocol Stop: 04/22/20 08:59 Last Admin: 03/24/20 08:55 Dose: 75 mg Documented by: Mental Health & Subst Abuse Tx Therapist Name of Therapist: None Chief Of Anesthesiology Name of Chief Of Anesthesiology: Denies Post Discharge Appointments Primary Care Physician Name Of Family Doctor: Dr Altman Contact Information Discharge Discharge Address: [address] [place] [address] (1) Alcohol intoxication Complication of substance-induced condition: uncomplicated Qualified Code(s): F10.920 - Alcohol use, unspecified with intoxication, uncomplicated (2) Depression Active/Remission status: currently active Depression Type: major depressive disorder Major depression episode severity: severe Major depression recurrence: recurrent Psychotic features: without psychotic features Qualified Code(s): F33.2 - Major depressive disorder, recurrent severe without psychotic features
[2020-03-24] MEDS: BISMUTH SUBSALICYLATE PER ML OMNICELL CHARGE PO PRN ×2 (18:42→21:36)
[2020-03-24] MEDS: TRAZODONE HCL 50 MG TAB PO PRN (21:10)
[2020-03-25] MEDS: VENLAFAXINE HCL XR 37.5 MG CAPXR PO SCH (09:56)
[2020-03-25] MEDS: NICOTINE 14 MG/24 HR PATCH TD SCH (09:56)
[2020-03-25] MEDS: DULOXETINE HCL 60 MG CAP PO SCH (09:56)
[2020-03-25] MEDS: METOPROLOL TARTRATE 50 MG TAB PO SCH ×4 (09:56→21:00)
--- NOTE | 2020-03-25 12:02 | Psychiatric Progress Note ---
Date of Service March 25, 2020 Impression / Recommendations Impression 39-year-old female admitted voluntary on 03/22/2020 for inpatient psychiatric treatment after presenting to the ED via state police following a suicide attempt by gunshot. She held a loaded gun to her head, but it did not fire when she pulled the trigger, and instead, fired when she put it on the ground. Pt reportedly called her brother afterward, and family called police. She has multiple psychosocial stressors, including multiple deaths in the family, diagnosed with cancer, and 16 year old daughter's . She has a history of anxiety and depression, and was seen by our service for intentional overdose in 2016, and although psychiatric hospitalization was recommended, she was discharged. She has had numerous previous suicide attempts, but no psychiatric treatment. Pt has been prescribed venlafaxine since 2001, and as it was no longer effective, she is being cross tapered to duloxetine, in order to target chronic pain as well. She also meets criteria for PTSD, as she has flashbacks and nightmares of her younger brother after his . She will be referred for outpatient therapy and psychiatry. Family meeting held with via phone. Consider discharge within 1-2 days; patient is at high risk of harm to self if discharged prematurely based on numerous significant outpatient stressors. (1) Suicide attempt: 03/22 - Admitted to a locked inpatient behavioral health unit, on q15 minute safety checks - Encourage medication initiation/adjustments as indicated - Encourage participation in group and recreational therapies - Gather collateral information from outpatient providers - Suggest family meeting to involve outpatient supports in safety planning - Arrange appropriate aftercare (2) Depression: 03/22 - Pt requesting medication adjustments, as she feels venlafaxine is no longer effective for mood/anxiety. After discussing several options, patient reports desire to trial duloxetine. Will plan slow cross-taper, patient with history of discontinuation syndrome with attempts to stop venlafaxine in the past. Will reduce venlafaxine to 75mg tomorrow morning, and initiated duloxetine at 30mg. Continue cross-taper as tolerated. - Obtain collateral information from family/supports - Schedule family meeting to discuss discharge and safety planning - Refer for outpatient psychiatry and therapy - Encourage attendance of group programming and assist with development of healthy and effective coping strategies 03/23 -Continue current medications, schedule family meeting, and refer for outpatient treatment. 03/24 - Pt reports some mild lightheadedness, but otherwise denies medication side effects or symptoms of discontinuation syndrome. Will continue with next step of cross-taper - ordering venlafaxine 37.5mg and duloxetine 60mg for tomorrow morning - Family meeting with scheduled for today - need to ensure guns and medications are secured, discuss safety and discharge planning - Pt will still require outpatient psychiatric services - Denies SI, but admits to feeling "ashamed and embarrassed about what I did" 03/25 - Continue current medication regimen - will likely continue cross-taper on an outpatient basis - Productive family meeting yesterday, guns and medications secured - Pt denies SI - Reports poor sleep is ongoing - discussed utilization of trazodone vs. hydroxyzine - Pt requesting prn hydroxyzine on discharge for panic attacks (3) Aortic regurgitation: 03/22 - Continue metoprolol. 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 (4) Post traumatic stress disorder: 03/22 - as above - Referral for outpatient therapy (5) Alcohol intoxication: 03/22 - Pt admits to history of significant alcohol abuse, but no consistent alcohol use in the past 1-2 years. Does not identify alcohol use as a primary concern - Suicidal ideation was present even prior to alcohol ingestion - BAL on admission was 245 Risk Factors Assessment Male: No : Yes Do You Have Access To A Gun?: Yes (partner collects guns, firearm in nightstand) Health Problems: Yes Mental Health Diagnoses: Yes Previous Attempt: Yes Family History of Suicide: Yes Previous Psychiatric Hospitalization: No (but has been recommended) Hopelessness: Yes Smoker: Yes Protective Factors Assessment Roman Catholic Beliefs: No : No (but committed to partner of 23 years) Responsible for Young Children: Yes Employed: Yes ([employer]) Stable Relationships: Yes Interval History Identifying Information ANNABELLA BRAN is a 39-year-old F who currently lives in [place] with her and teenage daughter. Pt has a history of depression, anxiety, and previous suicide attempts - but has not previously had inpatient psychiatric treatment. Pt and was admitted on 03/22/20 11:51 on a 201 voluntary commitment after she was brought to the ED by [employer] following a suicide attempt by gun shot, firearm misfiring. Chief Complaint "I'm good." Review of Systems Notes Constitutional: reports ongoing poor sleep Cardiovascular: denied Respiratory: denied Gastrointestinal: denied Genitourinary: reports episode of nocturnal enuresis last evening Neurological: denied Psychiatric: denies symptoms other than stated above Total of at least 10 systems reviewed, pertinent positives as above and in HPI. Sleep Information Total Hours of Sleep: 7.25 Sleep Comments: pt on q-15 minute checks Meal Information Percent Meal Consumed - Breakfast: 65 Percent Meal Consumed - Lunch: 100 Percent Meal Consumed - Dinner: 100 Subjective Subjective Patient was seen & assessed and interval progress reviewed with nursing and social work. Staff report the patient had a productive meeting with her via phone yesterday. She admitted to feeling as though she is "being pulled in all directions." She did rate her mood a 6/10 and "hopeful" last evening. Pt was seen today to assess progress since admission. Pt states she is feeling "good." Pt admits her meeting with her was beneficial and "he said he would help me do things that allow me to focus on me, and not just everyone else." She provided examples of ensuring she has time to go to the gym, accompanying her to the dog park, etc. She also was relieved that her would be talking to her daughter before she got home about some new restrictions in the house. Pt requests to discuss panic attacks, as she admits to having d ifficulty working through them. We discussed role of behavioral strategies and coping skills as well as medications. Pt is requesting a prescription for hydroxyzine when she is discharged. Pt admits to some diarrhea yesterday, but otherwise denies any physical concerns at this time. Pt denies SI and is hopeful for discharge tomorrow. She is able to verbalize awareness of the seriousness of her suicide attempt, and admits she is benefitting from treatment. Pt denied other needs or concerns. Physical Exam Psychiatric Orientation: alert, oriented x 3 and cooperative Apperance: appropriately dressed, appropriately groomed and appeared stated age Eye Contact: good eye contact Motor Behavior: steady gait and station and no abnormal motor movements Speech: normal rate/rhythm/volume of speech Affect: euthymic affect and mood congruent with affect Mood: no depressed mood and no anxious mood Thought Process: goal directed thought process, clear/coherent thought process and thought association intact Thought Content: reality based without delusions and + guilt (ongoing, related to suicide attempt); no hopelessness Suicidal Thoughts: denies suicidal thoughts, denies suicidal plan and denies suicidal intent Homicidal Thoughts: denies homicidal thoughts Hallucinations: no auditory hallucinations and no visual hallucinations Cognition: recent memory grossly intact, attention grossly intact and language grossly intact Estimated Intelligence: consistent with education level Insight: + fair insight Judgement: + fair judgement Vital Signs (Past 24 Hours) Last Vital Signs Temp 36.8 C 03/25/20 07:01 Pulse 59 L 03/25/20 07:02 Resp 18 03/25/20 07:01 BP 105/72 03/25/20 07:02 Pulse Ox 96 03/24/20 17:15 Results & Data ([facility]) Current Inpatient Medications Current Inpatient Medications: Current Inpatient Medications Acetaminophen (Acetaminophen 325 Mg Tab) 650 mg PO Q4H PRN PRN Reason: Headache or Minor Fever Stop: 04/21/20 10:56 Al Hydrox/Mg Hydrox/Simethicone (Aluminum/Magnesium Susp 30 Ml Udc) 30 ml PO Q4H PRN PRN Reason: GI Upset Stop: 04/21/20 10:56 Bismuth Subsalicylate (Bismuth Subsalicylate Per Ml Omnicell Charge) 15 ml PO PRN PRN PRN Reason: Loose Stool Stop: 04/21/20 10:56 Last Admin: 03/24/20 21:36 Dose: 15 ml Documented by: Duloxetine HCl (Duloxetine Hcl 60 Mg Cap) 60 mg PO QAM KATIE Stop: 04/24/20 08:59 Last Admin: 03/25/20 09:56 Dose: 60 mg Documented by: Hydroxyzine HCl (Hydroxyzine Hcl 25 Mg Tab) 50 mg PO HSZ PRN PRN Reason: Insomnia Stop: 04/21/20 10:56 Last Admin: 03/22/20 22:05 Dose: 50 mg Documented by: Hydroxyzine HCl (Hydroxyzine Hcl 25 Mg Tab) 25 mg PO Q4H PRN PRN Reason: Anxiety Stop: 04/21/20 10:56 Last Admin: 03/23/20 13:40 Dose: 25 mg Documented by: Ibuprofen (Ibuprofen 800 Mg Tab) 800 mg PO Q8H PRN PRN Reason: Pain Stop: 04/21/20 10:58 Last Admin: 03/22/20 21:12 Dose: 800 mg Documented by: Magnesium Hydroxide (Magnesium Hydroxide Susp 30 Ml Udc) 30 ml PO DAILY PRN PRN Reason: Constipation Stop: 04/21/20 10:56 Metoprolol Tartrate (Metoprolol Tartrate 50 Mg Tab) 50 mg PO QID KATIE Stop: 04/21/20 16:59 Last Admin: 03/25/20 09:56 Dose: 50 mg Documented by: Miscellaneous (Remove Nicoderm Patch) 1 ea N/A DAILY@[id number] [facility] Stop: 04/22/20 08:58 Last Admin: 03/25/20 10:00 Dose: 1 ea Documented by: Nicotine (Nicotine 14 Mg/24 Hr Patch) 14 mg TD QAM [facility] Stop: 04/21/20 15:29 Last Admin: 03/25/20 09:56 Dose: 14 mg Documented by: Nicotine Polacrilex (Nicotine Polacrilex 2 Mg Gum) 1 piece MT PRN PRN PRN Reason: nicotine cravings Stop: 04/21/20 15:08 Sodium Chloride (Sodium Chloride 0.65% Na Soln 45 Ml ([place])) 1 - 2 sprays NA PRN PRN PRN Reason: Nasal Dryness/Congestion Stop: 04/21/20 10:56 Trazodone HCl (Trazodone Hcl 50 Mg Tab) 50 mg PO HS PRN PRN Reason: insomnia Stop: 04/22/20 21:59 Last Admin: 03/24/20 21:10 Dose: 50 mg Documented by: Venlafaxine HCl (Venlafaxine Hcl Xr 37.5 Mg Capxr) 37.5 mg PO DAILY KATIE; Prot ocol Stop: 04/24/20 08:59 Last Admin: 03/25/20 09:56 Dose: 37.5 mg Documented by: Mental Health & Subst Abuse Tx Therapist Name of Therapist: Radha Therapist's Date of Therapist Appointment: 04/01/20 Time of Therapist Appointment: 1:30pm - [place], 2:00pm - [facility] Therapy Appointment Comment: [id number] Regulatory Compliance Specialist Name of Regulatory Compliance Specialist: Denies Post Discharge Appointments Primary Care Physician Name Of Family Doctor: Dr Altman Primary Care Provider Appointment Comment: As needed Specialist Name of Specialist: Dr Sanchez Phone Number for Specialist: [phone] Date of Appointment with Specialist: 04/09/20 Time of Appointment with Specialist: Cardiac studies at [facility] office Contact Information Discharge Discharge Address: [address] [place] [address] (1) Alcohol intoxication Complication of substance-induced condition: uncomplicated Qualified Code(s): F10.920 - Alcohol use, unspecified with intoxication, uncomplicated (2) Depression Active/Remission status: currently active Depression Type: major depressive disorder Major depression episode severity: severe Major depression recurrence: recurrent Psychotic features: without psychotic features Qualified Code(s): F33.2 - Major depressive disorder, recurrent severe without psychotic features
[2020-03-25] MEDS: IBUPROFEN 800 MG TAB PO PRN (13:08)
[2020-03-25] MEDS ORDERED: TRAZODONE HCL 50 MG TAB PO PRN (14:43)
[2020-03-26] MEDS: METOPROLOL TARTRATE 50 MG TAB PO SCH ×2 (09:30→12:15)
[2020-03-26] MEDS: DULOXETINE HCL 60 MG CAP PO SCH (09:30)
[2020-03-26] MEDS: NICOTINE 14 MG/24 HR PATCH TD SCH (09:31)
[2020-03-26] MEDS: VENLAFAXINE HCL XR 37.5 MG CAPXR PO SCH (09:31)
--- NOTE | 2020-03-26 11:52 | Discharge Summary ---
Date of Service March 26, 2020 History of Present Illness Lexy Munoz is a 39-year-old female admitted voluntarily for inpatient psychiatric treatment on 03/22/2020 after presenting to the ED s/p suicide attempt by trying to shoot herself in the head, however, gun did not fire initially when trigger was pulled. Patient's BAL was 245, though she admits to having been thinking about ending her life for several days prior when not under the influence of alcohol. Documentation states that patient informed her of the suicide attempt, though patient states she told her brother, who told her mother, who called police. 302 petitioning statement was completed by recruiter manager, and reads: "The patient was brought to [facility] Emergency Department by [facility] after she attempted to shoot herself in the head, but her gun did not fire. The patient reports multiple stressors: 16 year old daughter is , her was diagnosed with cancer again and both of her parents are in failing health. The patient made a statement to this petitioner, "everyone's better off without me." Pt is cooperative with psychiatric assessment. She admits "I tried to kill myself. I just have a lot going on." Pt shares stressors of: "my was diagnosed with cancer, my 16 year old daughter is , and my mother is trying to drink herself to ." Pt also shares "I'm really missing my younger brother, and that's probably the biggest thing. He overdosed on heroin in 2012." Pt states that she has believed for years that "my family would be better off without me." She also states "no one appreciates anything I do for them." Pt shares that she has struggled with depression and anxiety "for years", and has been prescribed venlafaxine "forever, since my older brother in 2001." Pt states she has been on doses up to 300mg, but has never found the medication particularly beneficial. Pt reports depressive symptoms of low mood, decreased energy, limited motivation/productivity, difficulty falling asleep, hopelessness, helplessness, and SI. Pt also admits to "nightmares and flashbacks, I can see my little brother laying in his coffin. It causes panic." Pt describes panic as "shortness of breath, my heart races, and I have nausea." Pt reports willingness for referrals for outpatient psychiatric treatment and is willing to discuss medication adjustments. Pt admits to previous suicide attempts by overdose - one at age 17y/o and anot her in 2016. She states inpatient psychiatric treatment was recommended in 2016, but she wanted to go home (consistent with records). She states that at age 17, she was told her behavior was "hereditary" and inpatient treatment was not recommended. She admits to willingness to seek this treatment now. Pt denies HI, SIB, A/V hallucinations, paranoia, alejandra/hypomania, other symptoms more suggestive of a bipolar presentation, OCD, eating disorder, and other specific psychiatric symptoms. Physical Exam Psychiatric Orientation: alert, oriented x 3 and cooperative Apperance: appropriately dressed, appropriately groomed and appeared stated age Eye Contact: good eye contact Motor Behavior: steady gait and station Speech: normal rate/rhythm/volume of speech Affect: euthymic affect The patient tears slightly when discussing her 's cancer diagnosis. She also tears up when discussing the of her younger brother at the age of 21. "Much better. I once I am out of depression, but I am feeling much more positive and hopeful." Thought Process: goal directed thought process Thought Content: reality based without delusions Suicidal Thoughts: denies suicidal thoughts The patient is future oriented, and she reports that all suicidal thoughts remain resolved. She has that she still feels embarrassed about the fact that she made a suicide attempt and says that she recognizes that it is going to be very important for her to avoid all use of alcohol. She also has as her plan for safety in the community to work hard in individual psychotherapy and "take it really seriously, now that I know that it can really help if I try," and patient also contracts to contact her treatment provider or tell her if suicidal thoughts recur. Further, the patient says that if all else fails she will return to the hospital Homicidal Thoughts: denies homicidal thoughts Hallucinations: no auditory hallucinations Cognition: recent memory grossly intact, remote memory grossly intact, attention grossly intact and language grossly intact Estimated Intelligence: + above average estimated intelligence Insight: + fair insight Judgement: good judgement Vital Signs (Past 24 Hours) Last Vital Signs Temp 36.6 C 03/26/20 10:58 Pulse 68 03/26/20 10:58 Resp 18 03/26/20 10:58 BP 101/62 03/26/20 10:58 Pulse Ox 96 03/26/20 10:58 Principal Diagnosis Major Depressive Disorder, Severe, Recurrent Psychiatric Data During the course of hospitalization the patient was offered various modalities of psychiatric treatment and education. These included individual, group, family, activity, and psychiatric medication therapy. Because the patient felt that she was no longer receiving any benefit from venlafaxine, the decision was made to cross titrate venlafaxine with duloxetine. At the time of discharge the patient's dose of venlafaxine had been decreased to 37.5 mg and her dose of duloxetine had been titrated to 60 mg, both daily. The plan was for her to continue venlafaxine 37.5 mg daily for the next 6 mornings and then discontinue it while continuing to take duloxetine 60 mg daily. In individual and group therapies the patient talks at some length about the fact that it feels to her as if those people who she loves will eventually leave her. Her father committed suicide when she was 3 years old, and she remembers thinking as a child that "he must not of loved me or he would not of done that." (Of course, she has no recollection of her father suicide). 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 The patient reported that when the brother became older he developed an addiction to opioids, and their mother would give him prescription opioid pain medications freely. According the patient, the brother at the age of 21 when his biological mother (the patient's older sister) "shot him up" with heroin, he ODD, and . She was very close with her second stepfather, a man whom she admired because he was hard-working, honest, loving, and involved. When the patient's mother and the stepfather the patient said that she became convinced that her stepfather, too, would "go out of [her] life." This, the patient reports, seems to have been the only notable exception because the stepfather, in fact, remains involved, concerned, loving, and supportive even though was from the patient's mother. More recently, her /domestic partner of many years was diagnosed with a recurrence of his hepatic carcinoma. He was originally diagnosed in January 2019 and was diagnosed with the reoccurrence in January 2020. The patient notes that he is on a waiting list for a liver transplant, but she recognizes that it is complicated because he now has had a reoccurrence. Further, the patient's 16-year-old daughter suffers from a number of heart defects, including aortic stenosis, pulmonary stenosis, and mitral valve prolapse, as part of what is assumed to be a geneticly determined (the patient was born with aortic stenosis and was told that her daughter would have a "4%" chance of developing similar heart valve problems). The patient's 16-year-old daughter is finishing her second trimester of , and the patient says that she worries a great deal about the possibility that her daughter, too, will leave her through . Within the context of all these losses and potential losses the patient says that she had come to feel as if "there must be something wrong with [her]." In therapy, she was able to look at this broad distortion as well as the individual distortions associated with each of the losses. She also feels that she is responding more favorably to duloxetine than she had venlafaxine. Suicidal thoughts resolved as soon as the patient became sober following the suicide attempt, and during the stay her primary emotion related to the suicide attempt was, she puts it, "combination of horror and embarrassment." During the stay we emphasized the risks associated with combining alcohol and depression. She was taught that alcohol is a depressant drug that not only makes depression worse but can interfere with antidepressant treatment and, further, can substantially impair judgment and impulse control. The patient explored the role that alcohol played in the suicide attempt and she convincingly is committed to sobriety. Surgeon is that although she had abused alcohol in the past, her alcohol use in recent years has been fairly limited and she feels that she can simply stop using alcohol without any difficulty. She was also given recommendations and tools for alcohol cessation with a suggestion that she consider participating in self- help groups such as Alcoholics Anonymous. The patient's affect brightened considerably during the stay. She was actively involved in the group therapies and activity therapies on the unit and formed a number of alliances with her peers. On the day of discharge, the patient's treatment team agreed that the patient's condition has improved to the degree that she can now be safely and appropriately discharged to the community with a plan to continue her treatment on an outpatient basis. Daily Progress: (1) Suicide attempt: 03/22 - Admitted to a locked inpatient behavioral health unit, on q15 minute safety checks - Encourage medication initiation/adjustments as indicated - Encourage participation in group and recreational therapies - Gather collateral information from outpatient providers - Suggest family meeting to involve outpatient supports in safety planning - Arrange appropriate aftercare 03/26 -Suicidal ideations are reportedly resolved. Patient is future oriented, has developed a detailed safety plan for the community, and is able to reliably contract for safety. (2) Depression: 03/22 - Pt requesting medication adjustments, as she feels venlafaxine is no longer effective for mood/anxiety. After discussing several options, patient reports desire to trial duloxetine. Will plan slow cross-taper, patient with history of discontinuation syndrome with attempts to stop venlafaxine in the past. Will reduce venlafaxine to 75mg tomorrow morning, and initiated duloxetine at 30mg. Continue cross-taper as tolerated. - Obtain collateral information from family/supports - Schedule family meeting to discuss discharge and safety planning - Refer for outpatient psychiatry and therapy - Encourage attendance of group programming and assist with development of healthy and effective coping strategies 03/23 -Continue current medications, schedule family meeting, and refer for outpatient treatment. 03/24 - Pt reports some mild lightheadedness, but otherwise denies medication side effects or symptoms of discontinuation syndrome. Will continue with next step of cross-taper - ordering venlafaxine 37.5mg and duloxetine 60mg for tomorrow morning - Family meeting with scheduled for today - need to ensure guns and medications are secured, discuss safety and discharge planning - Pt will still require outpatient psychiatric services - Denies SI, but admits to feeling "ashamed and embarrassed about what I did" 03/25 - Continue current medication regimen - will likely continue cross-taper on an outpatient basis - Productive family meeting yesterday, guns and medications secured - Pt denies SI - Reports poor sleep is ongoing - discussed utilization of trazodone vs. hydroxyzine - Pt requesting prn hydroxyzine on discharge for panic attacks 03/26 -The patient reports that her mood has improved considerably and that she has discovered the therapeutic advantage of talk therapy. Today, she says that, in the past, she had never taken talk therapy seriously because she had assumed that it was "just a bunch of talk." However, she notes her individual and group therapy sessions on the behavioral health unit during the current admission diehl ve been extremely helpful in helping her understand herself better, understand her reactions, and she also feels that she has developed improved coping strategies. (3) Aortic regurgitation: 03/22 - Continue metoprolol. Pt reports taking 50mg QID as opposed to 100mg BID, reports she has shared this with her outpatient city auditor - Continue outpatient follow-up with cardiology, next appointment reported to be 04/12. (4) Post traumatic stress disorder: 03/22 - as above - Referral for outpatient therapy (5) Alcohol intoxication: 03/22 - Pt admits to history of significant alcohol abuse, but no consistent alcohol use in the past 1-2 years. Does not identify alcohol use as a primary concern - Suicidal ideation was present even prior to alcohol ingestion - BAL on admission was 245 03/26 -The patient has been educated regarding the risk associated with alcohol intoxication within the context of suicidal thoughts. The patient says that she is aware that in all likelihood she would not have attempted suicide had her judgment and impulse control not been impaired by alcohol. She has achieved and maintained sobriety on her own, and believes that she will be able to do likewise upon returning to the community. She also has been given information regarding self-help groups such as Alcoholics Anonymous. Day of Discharge Assessment On the day of discharge, the patient was found to be pleasant, cooperative, appropriately dressed and groomed, and fully engaged in the discharge assessment process. Her speech was spontaneous and is delivered at a normal rate and volume. She describes her mood as being "much better," and although she describes ongoing anxieties and uncertainties, she notes that she feels that her condition has "definitely" improved to the degree that she can safely continue her treatment on an outpatient basis. The patient's affect is fairly bright. She laughs appropriately and talks happily about how eager she is to get back home,'s see her daughter, her , and the family's pet dog. Patient demonstrated tight associations. Her thought content included a recognition of the fact that she has been harboring number of distorted concepts regarding the idea that she is somehow personally responsible for the multiple losses that she is experienced or that she may be currently concerned about experiencing. She also says that she has learned through family interventions that her 16-year-old daughter lives and appreciates her much more than she had realized. The dajian hernandez was able to express gratitude and in a heartfelt way tell the patient how much she has missed her while she has been in the hospital. The patient was able to give a reliable inventory of her own strengths, and she has clearly developed insight into the fact that she was placed in the role of "hat braider" at an early age when her mother adopted a young child and essentially handed the child over to the patient to be raised. The patient states, "1 of the things I have learned here is that I have a mistake and believe that if I asked people for help I want cat it. I now know that I will get it, and I am not going to be afraid to ask." There is no evidence of any perceptual disturbances. The patient's judgment is assessed as good and her insight is at least fair at this point, although there is more work to be done in this regard. She reports that she is not having any suicidal thoughts, deeply regrets the attempt, is experiencing shame in association with the fact that she made an attempt, and says that she is very grateful that she was not successful. Patient also is having no thoughts of causing physical harm to the person or property of others. Transition of Care Transition Of Care Record: was reviewed with the patient Advance Directives Advance Directives Information Provided: Yes Advance Directives: No Mental Health Advance Directive: No Advance Directives on File: No Living Will: No Power of Orthopaedic Technologist: No Risk Factors Assessment History of depression. History of serious suicide attempt. Declines as Mental Health Visit. Physical health problems. Mitigating factors include commitment to treatment. Engagement in treatment during hospitalization. Supportive family. Male: No : Yes Do You Have Access To A Gun?: Yes (partner collects guns, firearm in nightstand) Health Problems: Yes Mental Health Diagnoses: Yes Substance Use Disorders: Yes (Patient acknowledges that she had previously had a history of alcohol misuse.) Previous Attempt: Yes Family History of Suicide: Yes Previous Psychiatric Hospitalization: No (but has been recommended) Hopelessness: Yes Smoker: Yes Protective Factors Assessment Hoahaoism Beliefs: No : No (but committed to partner of 23 years) Responsible for Young Children: Yes Employed: Yes ([employer]) Stable Relationships: Yes Supportive Family: Yes Good Rapport with Provider: Yes Absence of Any Risk Factors Above: No Tobacco Cessation at Discharge Tobacco Cessation Medication Prescribed at Discharge: Offered & Prescribed Total Time Total Time Spent: Greater Than 30 Minutes Total Time Includes: Examination of the patient, Discharge Planning, Medication Reconciliation and Communication with other providers Discharge Data Lab Results 03/22/20 03/22/20 03/22/20 02:05 02:05 02:05 WBC RBC Hgb Hct MCV MCH MCHC RDW Std Deviation RDW Coeff of Gianfranco Plt Count MPV Immature Gran % (Auto) Neut % (Auto) Lymph % (Auto) [place] % (Auto) Eos % (Auto) Baso % (Auto) Neut # (Auto) Lymph # (Auto) [place] # (Auto) Eos # (Auto) Baso # (Auto) Immature Gran # (Auto) Sodium Potassium Chloride Carbon Dioxide Anion Gap BUN Creatinine Est Cr Clr Drug Dosing Est GFR ( Amer) Est GFR (Non-Af Amer) BUN/Creatinine Ratio Glucose Calcium Total Bilirubin AST ALT Alkaline Phosphatase Total Protein Albumin Globulin Albumin/Globulin Ratio TSH Urine Color Yellow Urine Appearance Clear Urine pH 5.0 Ur Specific [place] 1.013 Urine Protein Negative Urine Glucose (UA) Negative Urine Ketones Negative Urine Blood Negative Urine Nitrite Negative Urine Bilirubin Negative Urine Urobilinogen Negative Ur Leukocyte Esterase Negative POC Ur Test NEG Salicylates Urine Opiates Screen Neg Ur Methadone, Qual Neg Acetaminophen Urine Barbiturates Neg Ur Phencyclidine (PCP) Neg U Amphetamin/Meth Scrn Neg MDMA (Ecstasy) Screen Neg U Benzodiazepines Scrn Neg Ur Cocaine Metabolite Neg U Marijuana (THC) Screen Neg Ethyl Alcohol mg/dL 03/22/20 03/22/20 03/22/20 02:20 02:20 02:20 WBC 7.00 RBC 4.71 Hgb 14.8 Hct 44.0 MCV 93.4 MCH 31.4 MCHC 33.6 RDW Std Deviation 45.5 RDW Coeff of Gianfranco 13.2 Plt Count 259 MPV 11.1 H Immature Gran % (Auto) 0.3 Neut % (Auto) 50.4 Lymph % (Auto) 40.0 [place] % (Auto) 6.6 Eos % (Auto) 2.3 Baso % (Auto) 0.4 Neut # (Auto) 3.53 Lymph # (Auto) 2.80 [place] # (Auto) 0.46 Eos # (Auto) 0.16 Baso # (Auto) 0.03 Immature Gran # (Auto) 0.02 Sodium 146 H Potassium 3.6 Chloride 114 H Carbon Dioxide 24 Anion Gap 8.0 BUN 7 Creatinine 0.68 Est Cr Clr Drug Dosing 88.7 Est GFR ( Amer) 128.6 Est GFR (Non-Af Amer) 111.0 BUN/Creatinine Ratio 9.9 L Glucose 98 Calcium 8.0 L Total Bilirubin 0.3 AST 17 ALT 27 Alkaline Phosphatase 61 Total Protein 7.5 Albumin 4.0 Globulin 3.5 Albumin/Globulin Ratio 1.1 TSH 1.680 Urine Color Urine Appearance Urine pH Ur Specific [place] Urine Protein Urine Glucose (UA) Urine Ketones Urine Blood Urine Nitrite Urine Bilirubin Urine Urobilinogen Ur Leukocyte Esterase POC Ur Test Salicylates 2.4 L Urine Opiates Screen Ur Methadone, Qual Acetaminophen < 2 L Urine Barbiturates Ur Phencyclidine (PCP) U Amphetamin/Meth Scrn MDMA (Ecstasy) Screen U Benzodiazepines Scrn Ur Cocaine Metabolite U Marijuana (THC) Screen Ethyl Alcohol mg/dL 03/22/20 02:20 WBC RBC Hgb Hct MCV MCH MCHC RDW Std Deviation RDW Coeff of Gianfranco Plt Count MPV Immature Gran % (Auto) Neut % (Auto) Lymph % (Auto) [place] % (Auto) Eos % (Auto) Baso % (Auto) Neut # (Auto) Lymph # (Auto) [place] # (Auto) Eos # (Auto) Baso # (Auto) Immature Gran # (Auto) Sodium Potassium Chloride Carbon Dioxide Anion Gap BUN Creatinine Est Cr Clr Drug Dosing Est GFR ( Amer) Est GFR (Non-Af Amer) BUN/Creatinine Ratio Glucose Calcium Total Bilirubin AST ALT Alkaline Phosphatase Total Protein Albumin Globulin Albumin/Globulin Ratio TSH Urine Color Urine Appearance Urine pH Ur Specific [place] Urine Protein Urine Glucose (UA) Urine Ketones Urine Blood Urine Nitrite Urine Bilirubin Urine Urobilinogen Ur Leukocyte Esterase POC Ur Test Salicylates Urine Opiates Screen Ur Methadone, Qual Acetaminophen Urine Barbiturates Ur Phencyclidine (PCP) U Amphetamin/Meth Scrn MDMA (Ecstasy) Screen U Benzodiazepines Scrn Ur Cocaine Metabolite U Marijuana (THC) Screen Ethyl Alcohol mg/dL 245.0 H Mental Health & Subst Abuse Tx Therapist Name of Therapist: TramaineKeith Therapist's Date of Therapist Appointment: 04/01/20 Time of Therapist Appointment: 1:30pm - [place], 2:00pm - Ryann Therapy Appointment Comment: [id number], after intake will be telehealth Therapist Release of Information: Obtained, Reviewed and Signed Timber Cruiser Name of Timber Cruiser: . Post Discharge Appointments Primary Care Physician Name Of Family Doctor: Dr Altman Primary Care Provider Appointment Comment: As needed Primary Care Release of Information: Obtained, Reviewed and Signed Specialist Name of Specialist: Himanshu Hoover cardiology Phone Number for Specialist: [phone] Date of Appointment with Specialist: 04/09/20 Time of Appointment with Specialist: Cardiac studies at [facility] Specialist Release of Information: Obtained, Reviewed and Signed Smoking Cessation Counseling Tobacco Cessation Medication Prescribed at Discharge: Offered & Prescribed Contact Information Discharge Discharge Address: [address] [place] [address] Discharge Plan Discharge Items Patient Disposition: Home - Self-Care Reason For Visit: DEPRESSION Discharge Diagnosis: Major Depressive Disorder, Severe, Recurrent Activity: Resume your previous activity Activity Comment: May return to work on Sunday03/28/20 Non-emergency contact: Primary Care Provider, Psychiatrist and Therapist Call non-emergency contact if: you have any medication questions and your symptoms worsen Follow-up/Referrals: Shalom Altman III, MD [Primary Care Provider] - Diet: Regular Addtl Attending Provider Instructions: SPECIAL CARE INSTRUCTIONS: 1. Follow through with your scheduled aftercare appointments. If unable to keep an appointment, please call to reschedule. 2. Take your medication only as prescribed. Medication should not be changed or stopped without the approval of your doctor. In the event of worsening symptoms or concerns about side effects, contact your doctor immediately. 3. Utilize new healthy coping skills, anger management skills, and stress management skills learned during your hospitalization. Journal feelings and process them with a support person. Identify stressors or situations that may result in relapse, deterioration or inappropriate behaviors and develop a plan to deal with those issues. 4. If your coping skills are ineffective and you are in crisis, contact your outpatient providers for direction. If unable to reach your providers, please call the CAN HELP LINE AT or go to the closest Emergency Room. 5. Avoid alcohol and un-prescribed drugs. 6. You have been provided with the Mental Health Advance Directives Pamphlet for your review. AFTERCARE APPOINTMENTS: * Please call your insurance company prior to your scheduled appointment to confirm your aftercare providers are covered. Take your insurance information to your appointments. WHO TO CALL AND WHEN: Medical Emergencies: For questions or emergencies related to your hospital stay, please contact the Inpatient Behavioral Health Unit at [phone]. A gun welder is on-call 19/02 for the Behavioral Health Unit for e mergencies At any time you feel your situation is an emergency, you may also call 911 immediately. Your Doctors Instructions noted above were prepared by provider Chris Saldivar MD. Pending Studies at Discharge: No Stand-Alone Forms: My [facility] [employer], Smoking Cessation, Suicide Prevention Resources Medications and DC Order Prescriptions: New venlafaxine 37.5 mg Capsule,Extended Release 24hr 37.5 mg PO DAILY Qty: 6 RF: 0 nicotine (polacrilex) [Nicorelief] 2 mg Gum 1 piece of gum MT PRN PRN (Reason: Nicotine Cravings) 30 Days Qty: 100 RF: 0 metoprolol tartrate 50 mg Tablet 50 mg PO QID Qty: 120 RF: 0 nicotine 7 mg/24 hr Patch 24 Hour 14 mg transdermal QAM 14 Days Qty: 14 RF: 1 trazodone 50 mg Tablet 25 mg PO HS PRN (Reason: Sleep) Qty: 30 RF: 0 hydroxyzine HCl 25 mg Tablet 25 mg PO Q4H PRN (Reason: anxiety) Qty: 60 RF: 1 duloxetine 60 mg Capsule,Delayed Release(Dr/Ec) 60 mg PO QAM Qty: 30 RF: 0 Continued ibuprofen [Advil] 200 mg tablet 800 mg PO Q8H PRN (Reason: Pain) RF: 0 Lopressor 100 mg PO BID RF: 0 Discontinued Effexor XR 150 mg PO DAILY RF: 0 Discharge Orders: Discharge Order (Routine); Ordered 03/26/20 Ordered By: Chris Saldivar Admission Data Admit Date/Time: 03/22/20 11:51 Attending Provider: Tabatha Dye Admit Provider: Tabatha Dye Primary Care Provider: Shalom Altman III Other Interventions: Discharge Summary Assessment (RN) Last Done: 03/26/20 10:58 PSY Interdisciplinary Discharge Planning Last Done: 03/26/20 10:58 [place] [address] D/C day mgmt > 30 min Patient Type Established History Expanded Problem Focused Exam Expanded Problem Focused Medical Decision Making Moderate Complexity Time Spent (min) 80
== END 2020-03-26 12:20 | disposition home or self-care (01) | DRG 885 ==
LOC: EDBD → MERGE 02:00 → ED 02:00 → 3S 11:32

== ENCOUNTER 2021-08-23 03:17 | Inpatient (IN) ==
[2021-08-23] MEDS ORDERED: SODIUM CHLORIDE 0.9% 1000ML 1,000 ML IV ONE (03:47)
--- NOTE | 2021-08-23 04:07 | Emergency Department Note ---
History of Present Illness General Chief complaint: Illness Stated complaint: GENERAL ILLNESS Time Seen by Provider: 08/23/21 03:25 History of Present Illness Maximum Pain Intensity: 0 This 41-year-old female patient with recent past medical history of COVID-19 presents to the emergency department today for evaluation of apparent shortness of breath. Pt. states her called 911 and "I don't know why". Pt. states she had COVID-19 earlier this month. She was seen here in the ED 5 days ago where she had CT angiogram of the chest and laboratory evaluation completed which was unrevealing. The patient then was seen at [facility] and was ultimately admitted to the hospital for sepsis. She states she had an elevated white blood cell count and an elevated lactic acid. She states she was on multiple antibiotics and was discharged yesterday but told to follow-up as an outpatient today with her PCP for repeat CBC. The patient states she felt that she was doing fine, but her called the ambulance, maybe due to her shortness of breath. The patient is having difficulty with word finding. She is having difficulty identifying the day she is to see her doctor and which hospital she was admitted to. She notes she does not feel confused, and denies any other symptoms. She denies any pain. She states she feels SOB, but this is not unusual since Covid-19. She has been taking all d/c medications as well as her home medications. Home Medications Medication Instructions Recorded Confirmed Type duloxetine 60 mg capsule,delayed 90 mg PO QAM cap 08/10/20 07/20/21 History release metoprolol tartrate 50 mg tablet 50 mg PO BID tab 04/12/21 07/20/21 History lithium carbonate 300 mg tablet 300 mg PO QAM 04/17/21 07/20/21 History lithium carbonate 600 mg capsule 600 mg PO QPM cap 06/30/21 07/20/21 History albuterol sulfate 90 mcg/actuation 2 puff INHALATION Q6H PRN #8.5 g 08/18/21 08/18/21 Rx aerosol inhaler Allergies Allergy/AdvReac Type Severity Reaction Status Date / Time ampicillin Allergy Intermediate HIVES Verified 07/20/21 10:22 codeine Allergy Intermediate GI SYMPTOMS Verified 07/20/21 10:22 fentanyl Allergy Intermediate Hives Verified 07/20/21 10:22 meperidine Allergy Intermediate VEIN Verified 07/20/21 10:22 TURNED RED/PAINFUL morphine Allergy Intermediate Hives Verified 07/20/21 10:22 Penicillins Allergy Intermediate SICK TO Verified 07/20/21 10:22 STOMACH amoxicillin Allergy Mild rash Verified 07/20/21 10:22 clavulanic acid Allergy Mild rash Verified 07/20/21 10:22 Sulfa (Sulfonamide Allergy Unknown UNSURE Verified 07/20/21 10:22 Antibiotics) REACTION Opioids - Morphine Analogues Allergy Hives Verified 07/20/21 10:22 Opioids-Meperidine and Allergy Hives Verified 07/20/21 10:22 Related prednisone AdvReac Severe Tachycardia Verified 07/20/21 10:22 promethazine AdvReac Mild itching Verified 07/20/21 10:22 NARCOTIC Allergy Intermediate Hives Uncoded 07/20/21 10:22 METAL AdvReac Mild Rash Uncoded 07/20/21 10:22 Past Med/Surg History Medical History Abdominal bloating Abdominal pain Abscess of left thigh Alcohol intoxication Anemia Anxiety Aortic regurgitation Aortic stenosis Blood clot in vein SUPERFICIAL IN ARM S/P IV START Calculus of kidney Cervical radiculopathy Chronic constipation Classic migraine with aura Congenital heart disease in adult Degenerative disc disease BULGING DISCS Depression Fibromyalgia Gastritis HX OF H. pylori infection IN THE PAST Heart disease (09/22/12) Lumbago Migraine Osteoarthritis Paresthesias Post traumatic stress disorder Pyrosis Rash Restless leg syndrome Sinus tachycardia Sore throat Spinal stenosis Sudden onset of severe headache Suicide attempt Tachycardia Tobacco use disorder Vision disturbance Vulvar lump Surgical History Family history of reaction to anesthesia H/O aortic valve repair H/O eye surgery H/O hand surgery H/O laparoscopy History of breast biopsy History of cardiac cath History of colonoscopy History of dilatation and curettage History of esophagogastroduodenoscopy (EGD) Hx of tonsillectomy (09/22/12) Nausea and vomiting after administration of anesthetic agent Family History Mother Family history of diabetes mellitus Diabetes Grandmother (Maternal) Family history of diabetes mellitus Heart disease Aunt Breast cancer Ovarian cancer Uncle Myocardial infarction Sister Cancer Denies family history of Prostate cancer Colorectal cancer Social History Smoking Status: Former smoker Tobacco Type: Cigarettes packs per day: 0.5; Years Smoked: 20; Second Hand Exposure: Yes (RARE); Hx Alcohol Use: No Hx Substance Use: No Preferred Language: Sinhala Communication Ability: Effective Visual Impairment: No Limitations Hearing Ability: Normal Oncology Rep Specialist Required: No Beliefs That Will Affect Care: None marital status: Current Living Situation: Family current occupational status: employed 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 How many Children do You have: 1 Feels Safe at Home: Yes Physical Activity Frequency: 5-6 Times per Week Seatbelt Use: always Assistive Devices: None Review of Systems A total of 10 systems reviewed and were otherwise negative Physical Exam Vital Signs Vital Signs - 24 hr 08/23/21 03:15 08/23/21 04:04 08/23/21 04:06 Temperature 37.0 C Temperature Source Oral Pulse Rate 78 Pulse Rate [Right Finger] 76 Respiratory Rate 24 20 Respiratory Effort / Characteristics Non-Labored Respiratory Depth Normal Blood Pressure 120/70 Blood Pressure [Right Arm] 114/69 Blood Pressure Mean 86 Blood Pressure Mean [Right Arm] 84 Pulse Oximetry 97 87 L 96 Oxygen Delivery Method Room Air Room Air Nasal Cannula Oxygen Flow Rate 1 1 Sepsis Recent Fever Within 48 Hours No Sepsis New/Unexplained Change in Mental Status N/A Sepsis Action Taken by Nursing No Action Required 08/23/21 05:00 08/23/21 05:31 08/23/21 06:40 Temperature Temperature Source Pulse Rate Pulse Rate [Right Finger] 76 78 Respiratory Rate 20 20 Respiratory Effort / Characteristics Non-Labored Non-Labored Respiratory Depth Normal Normal Blood Pressure Blood Pressure [Right Arm] 112/62 135/65 Blood Pressure Mean Blood Pressure Mean [Right Arm] 78 88 Pulse Oximetry 94 94 Oxygen Delivery Method Nasal Cannula Nasal Cannula Room Air Oxygen Flow Rate 1 1 Sepsis Recent Fever Within 48 Hours Sepsis New/Unexplained Change in Mental Status Sepsis Action Taken by Nursing VITALS: Vitals are noted on the nurse's note and reviewed by myself. O2 saturation fluctuating between 87% and 95% on RA. Drops to 87% with activity. GENERAL: This is a 41-year-old white female, in no acute distress, nondiaphoretic, well-developed well-nourished. SKIN: The skin was without rashes, erythema, edema, or bruising. There is no tenting of the skin. Capillary refill less than 2 seconds. HEAD: Normocephalic atraumatic. EARS: External auditory canals clear, tympanic membranes pearly leiva without erythema or effusion bilaterally. EYES: Pupils equal round and reactive to light and accommodation. Conjunctivae without injection, sclerae without icterus. Extraocular movements intact. NOSE: Patent, turbinates without inflammation or discharge. No sinus tenderness. MOUTH: Mucous membranes moist. Tonsils are not enlarged. Pharynx without erythema or exudate. Uvula midline. Airway patent. Tongue does not deviate. NECK: Supple without nuchal rigidity. No lymphadenopathy. No thyromegaly. Cervical spine is nontender. No JVD. HEART: Regular rate and rhythm without murmurs gallops or rubs. LUNGS: Clear to auscultation bilaterally without wheezes, rales or rhonchi. No retractions or accessory muscle use. ABDOMEN: Positive bowel sounds x 4. Soft, nontender, without masses or organomegaly. No guarding or rebound tenderness. MUSCULOSKELETAL: No muscle atrophy, erythema, or edema noted. Full range of motion without joint tenderness in all extremities. No tenderness to palpation. Normal gait. Strength 5/5 throughout. NEURO: Patient was alert and oriented to current person place and time, though was having some difficulty with recent events and locations. Normal sensation to light and sharp touch. Deep tendon reflexes 2+ throughout. No focal neurological deficits. Course Course The patient was seen and evaluated as above. An order was placed for continuous cardiac monitoring. The monitor shows a normal sinus rhythm at a rate of 78 bpm. IV access obtained, labs drawn. Patient medicated with IV fluids. Imaging performed and reviewed by myself and radiologist as noted. Labs reviewed by myself. I discussed the findings with the patient at bedside. I discussed the case with the consumer insight manager. I discussed the case with the [facility] Hospitalist physician. Please see hospitalist dictation regarding ongoing management and care of this patient. Administered Medications Discontinued Medications Benzonatate (Benzonatate 100 Mg Capsule) 200 mg PO NOW ONE Stop: 08/23/21 05:47 Last Admin: 08/23/21 05:54 Dose: 200 mg Documented by: [id number] Sodium Chloride (Nss 1000ml) 1,000 mls @ 999 mls/hr IV .Q1H1M ONE Stop: 08/23/21 04:47 Last Admin: 08/23/21 04:33 Dose: 999 mls/hr Documented by: [id number] Medical Decision Making Differential Diagnosis Reactive airway disease, pneumonia, pneumothorax, COPD, CHF, infections, cardiac ischemia, pulmonary embolism, musculoskeletal, gastrointestinal, infection, hypoxia, CVA, TIA, trauma, ICH, as well as other pathologies. Medical Records Attestation: I reviewed the patient's medical records. Home Medications Current Medication List: was personally reviewed by me Laboratory Data Attestation: I reviewed the patient's lab results. Mild leukocytosis of 15,000. This is improved from last CBC noted on patient's paperwork from [facility] of 18,000. No anemia or thrombocytopenia. Renal, hepatic function and electrolytes without significant abnormality. Troponin negative. INR 1.0. Urinalysis negative for blood or evidence of infection. Alcohol 174.8. Result diagrams: 08/23/21 03:48 08/23/21 03:48 Lab Results 08/23/21 08/23/21 08/23/21 Range/Units 03:48 03:48 03:48 WBC 15.37 H (4.8-10.8) K/uL RBC 4.15 L (4.2-5.4) M/uL Hgb 13.0 (12.0-16.0) g/dL Hct 38.9 (37-47) % MCV 93.7 (80-100) fL MCH 31.3 (25-34) pg MCHC 33.4 (32-36) g/dL RDW Std Deviation 44.8 (36.4-46.3) fL RDW Coeff of Gianfranco 13.0 (11.5-14.5) % Plt Count 360 (130-400) K/uL MPV 10.8 H (7.4-10.4) fL Immature Gran % (Auto) 0.7 % Neut % (Auto) 88.8 % Lymph % (Auto) 7.5 % [place] % (Auto) 3.0 % Eos % (Auto) 0.0 % Baso % (Auto) 0.0 % Neut # (Auto) 13.66 H (1.4-6.5) K/uL Lymph # (Auto) 1.15 L (1.2-3.4) K/uL [place] # (Auto) 0.46 (0.11-0.59) K/uL Eos # (Auto) 0.00 (0-0.5) K/uL Baso # (Auto) 0.00 (0-0.2) K/uL Immature Gran # (Auto) 0.10 H (0.00-0.02) K/uL Absolute Nucleated RBC 0.02 H (0-0) K/uL Nucleated RBC % (auto) 0.1 % PT Cancelled INR Cancelled APTT Cancelled PTT Ratio Cancelled Sodium 142 (136-145) mmol/L Potassium 3.5 (3.5-5.1) mmol/L Chloride 111 H (98-107) mmol/L Carbon Dioxide 22 (21-32) mmol/L Anion Gap 9 (3-11) BUN 6 (6-23) mg/dl Creatinine 0.55 L (0.6-1.2) mg/dl Est Cr Clr Drug Dosing 132.0 ml/min Est GFR ( Amer) 136.0 ml/min Est GFR (Non-Af Amer) 117.3 ml/min BUN/Creatinine Ratio 10.9 (10-20) Glucose 123 H (70-99(Fasting)) mg/dl Calcium 8.2 L (8.5-10.1) mg/dl Magnesium 2.0 (1.7-2.4) mg/dl Total Bilirubin 0.3 (0.2-1.0) mg/dl AST 30 (13-39) U/L ALT 60 H (7-52) U/L Alkaline Phosphatase 47 (34-104) U/L Troponin I < 0.03 (0-0.04) ng/ml Total Protein 6.2 (6.0-8.3) gm/dl Albumin 3.7 (3.4-5.0) gm/dl Globulin 2.5 (2.5-4.0) gm/dl Albumin/Globulin Ratio 1.5 (0.9-2) Urine Color Urine Appearance (Clear) Urine pH (4.5-7.5) Ur Specific [place] (1.000-1.030) Urine Protein (Negative) Urine Glucose (UA) (Negative) Urine Ketones (Negative) Urine Blood (Negative) Urine Nitrite (Negative) Urine Bilirubin (Negative) Urine Urobilinogen (Negative) Ur Leukocyte Esterase (Negative) Urine Opiates Screen (Neg) Ur Methadone, Qual (Neg) Urine Barbiturates (Neg) Ur Phencyclidine (PCP) (Neg) U Amphetamin/Meth Scrn (Neg) MDMA (Ecstasy) Screen (Neg) U Benzodiazepines Scrn (Neg) Ur Cocaine Metabolite (Neg) U Marijuana (THC) Screen (Neg) Ethyl Alcohol mg/dL (<10.0) mg/dl SARS-CoV-2, RNA, NAAT (NEGATIVE) 08/23/21 08/23/21 08/23/21 Range/Units 04:24 04:24 05:29 WBC (4.8-10.8) K/uL RBC (4.2-5.4) M/uL Hgb (12.0-16.0) g/dL Hct (37-47) % MCV (80-100) fL MCH (25-34) pg MCHC (32-36) g/dL RDW Std Deviation (36.4-46.3) fL RDW Coeff of Gianfranco (11.5-14.5) % Plt Count (130-400) K/uL MPV (7.4-10.4) fL Immature Gran % (Auto) % Neut % (Auto) % Lymph % (Auto) % [place] % (Auto) % Eos % (Auto) % Baso % (Auto) % Neut # (Auto) (1.4-6.5) K/uL Lymph # (Auto) (1.2-3.4) K/uL [place] # (Auto) (0.11-0.59) K/uL Eos # (Auto) (0-0.5) K/uL Baso # (Auto) (0-0.2) K/uL Immature Gran # (Auto) (0.00-0.02) K/uL Absolute Nucleated RBC (0-0) K/uL Nucleated RBC % (auto) % PT 9.8 INR 1.0 APTT 20.4 L PTT Ratio 0.8 Sodium (136-145) mmol/L Potassium (3.5-5.1) mmol/L Chloride (98-107) mmol/L Carbon Dioxide (21-32) mmol/L Anion Gap (3-11) BUN (6-23) mg/dl Creatinine (0.6-1.2) mg/dl Est Cr Clr Drug Dosing ml/min Est GFR ( Amer) ml/min Est GFR (Non-Af Amer) ml/min BUN/Creatinine Ratio (10-20) Glucose (70-99(Fasting)) mg/dl Calcium (8.5-10.1) mg/dl Magnesium (1.7-2.4) mg/dl Total Bilirubin (0.2-1.0) mg/dl AST (13-39) U/L ALT (7-52) U/L Alkaline Phosphatase (34-104) U/L Troponin I (0-0.04) ng/ml Total Protein (6.0-8.3) gm/dl Albumin (3.4-5.0) gm/dl Globulin (2.5-4.0) gm/dl Albumin/Globulin Ratio (0.9-2) Urine Color Yellow Urine Appearance Clear (Clear) Urine pH 8.0 H (4.5-7.5) Ur Specific [place] 1.010 (1.000-1.030) Urine Protein Negative (Negative) Urine Glucose (UA) Negative (Negative) Urine Ketones Negative (Negative) Urine Blood Negative (Negative) Urine Nitrite Negative (Negative) Urine Bilirubin Negative (Negative) Urine Urobilinogen Negative (Negative) Ur Leukocyte Esterase Negative (Negative) Urine Opiates Screen (Neg) Ur Methadone, Qual (Neg) Urine Barbiturates (Neg) Ur Phencyclidine (PCP) (Neg) U Amphetamin/Meth Scrn (Neg) MDMA (Ecstasy) Screen (Neg) U Benzodiazepines Scrn (Neg) Ur Cocaine Metabolite (Neg) U Marijuana (THC) Screen (Neg) Ethyl Alcohol mg/dL 174.8 H (<10.0) mg/dl SARS-CoV-2, RNA, NAAT (NEGATIVE) 08/23/21 08/23/21 Range/Units 05:29 06:42 WBC (4.8-10.8) K/uL RBC (4.2-5.4) M/uL Hgb (12.0-16.0) g/dL Hct (37-47) % MCV (80-100) fL MCH (25-34) pg MCHC (32-36) g/dL RDW Std Deviation (36.4-46.3) fL RDW Coeff of Gianfranco (11.5-14.5) % Plt Count (130-400) K/uL MPV (7.4-10.4) fL Immature Gran % (Auto) % Neut % (Auto) % Lymph % (Auto) % [place] % (Auto) % Eos % (Auto) % Baso % (Auto) % Neut # (Auto) (1.4-6.5) K/uL Lymph # (Auto) (1.2-3.4) K/uL [place] # (Auto) (0.11-0.59) K/uL Eos # (Auto) (0-0.5) K/uL Baso # (Auto) (0-0.2) K/uL Immature Gran # (Auto) (0.00-0.02) K/uL Absolute Nucleated RBC (0-0) K/uL Nucleated RBC % (auto) % PT INR APTT PTT Ratio Sodium (136-145) mmol/L Potassium (3.5-5.1) mmol/L Chloride (98-107) mmol/L Carbon Dioxide (21-32) mmol/L Anion Gap (3-11) BUN (6-23) mg/dl Creatinine (0.6-1.2) mg/dl Est Cr Clr Drug Dosing ml/min Est GFR ( Amer) ml/min Est GFR (Non-Af Amer) ml/min BUN/Creatinine Ratio (10-20) Glucose (70-99(Fasting)) mg/dl Calcium (8.5-10.1) mg/dl Magnesium (1.7-2.4) mg/dl Total Bilirubin (0.2-1.0) mg/dl AST (13-39) U/L ALT (7-52) U/L Alkaline Phosphatase (34-104) U/L Troponin I (0-0.04) ng/ml Total Protein (6.0-8.3) gm/dl Albumin (3.4-5.0) gm/dl Globulin (2.5-4.0) gm/dl Albumin/Globulin Ratio (0.9-2) Urine Color Urine Appearance (Clear) Urine pH (4.5-7.5) Ur Specific [place] (1.000-1.030) Urine Protein (Negative) Urine Glucose (UA) (Negative) Urine Ketones (Negative) Urine Blood (Negative) Urine Nitrite (Negative) Urine Bilirubin (Negative) Urine Urobilinogen (Negative) Ur Leukocyte Esterase (Negative) Urine Opiates Screen Neg (Neg) Ur Methadone, Qual Neg (Neg) Urine Barbiturates Neg (Neg) Ur Phencyclidine (PCP) Neg (Neg) U Amphetamin/Meth Scrn Neg (Neg) MDMA (Ecstasy) Screen Neg (Neg) U Benzodiazepines Scrn Neg (Neg) Ur Cocaine Metabolite Neg (Neg) U Marijuana (THC) Screen Neg (Neg) Ethyl Alcohol mg/dL (<10.0) mg/dl SARS-CoV-2, RNA, NAAT POSITIVE A* (NEGATIVE) Imaging Data My Impression: Chest x-ray. Findings: A chest x-ray was performed and revealed no pneumothorax, effusion, infiltrate, pulmonary edema, free air under the diaphragm, or wide mediastinum. No change when compared to CXR 08/18/2021. Radiologist's Impression: Chest X-Ray 08/23/21 03:48 XR chest 1V portable CLINICAL HISTORY: Shortness of breath. COMPARISON STUDY: Chest radiograph and chest CT August 18, 2021. FINDINGS: Lung volumes are normal. Lungs are clear. There is no pneumothorax or pleural effusion. Cardiac size is normal. Mediastinal contours are normal. There is no evidence for pulmonary edema. There are pediatric median sternotomy wires. IMPRESSION: No acute cardiopulmonary findings. ACT 112: Negative or not required by law. Electronically signed by: Pollo Ortega M.D. 08/23/2021 6:[address] 08/23/21 03:48 CT OF THE HEAD WITHOUT CONTRAST CLINICAL HISTORY: Altered mental status. COMPARISON STUDY: Head CT March 03, 2015. CTA of the head June 17, 2018. MRI of the brain August 19, 2018. CT DOSE: 614.27 mGy.cm TECHNIQUE: Helical axial images of the head were obtained without IV contrast. Automated exposure control was utilized for the study. A dose lowering technique was utilized adhering to the principles of ALARA. FINDINGS: No acute intracranial hemorrhage, midline shift or mass effect is present. The ventricular system is unremarkable. The basal cisterns are patent. No extra-axial collections are present. There are no findings to suggest acute dural sinus thrombosis or acute territorial infarct. No significant calvarial abnormalities are present. Visualized portions of the sinuses and mastoid air cells are clear. IMPRESSION: No acute intracranial findings. ACT 112: Negative or not required by law. Electronically signed by: Pollo Ortega M.D. 08/23/2021 6:[address] HEAD: No acute intracranial abnormality. Consider MRI if there is further concern. Radiologist: Jose Funk MD ECG Data Attestation: I personally reviewed and interpreted this ECG as follows: Indication: + SOB/dyspnea Rate (beats per minute): 79 Rhythm: + normal sinus ECG Intervals/blocks: + Prolonged QT (QTc 467) ECG Emery: + Normal ECG ST segments: no ST depression, no ST elevation or no T-wave inversions Blood Pressure Blood Pressure Findings: Normal blood pressure MDM Narrative This 41-year-old female patient presents to the emergency department via ambul ance today with a somewhat altered mental status. The patient is awake, alert, and oriented at this time, but is having difficulty with some word finding. She has apparently been complaining of some increased shortness of breath over the past few days. She was recently admitted to [facility] for sepsis with an elevated lactic acid and white blood cell count. She was to follow-up as an outpatient today for repeat labs. The patient was tearful upon initial arrival to the ED. She noted she was unclear why her called the ambulance. Extensive work-up to include CT of the head, chest x-ray, labs, EKG completed. Work-up here in the ED concerning for an elevated blood alcohol level at about 175. Suspect this may be contributing to the patient's symptoms initially, as they improve as the ED visit progresses. She has been hypoxic while in the ED, dropping to the mid to high 80's with activity. She was started on Oxygen. Due to the hypoxia and mental status, will admit the patient to the hospitalist service for ongoing evaluation of her symptoms. Please see hospitalist dictation regarding ongoing management of this patient. The chart was completed utilizing [employer] voice recognition software. Grammatical errors, random word insertions, pronoun errors, and incomplete se ntences are an occasional consequence of this system due to software limitations, ambient noise, and hardware issues. Any formal questions or concerns about the content, text, or information contained within the body of this dictation should be directly addressed to the provider for clarification. Impression & Plan Dyspnea, Alcohol overdose, Hypoxia, Altered mental status Discharge Plan Visit Data Chief Complaint: Illness Stated Complaint: GENERAL ILLNESS ED Provider: Jessica Gil ED Midlevel Provider: Kayla Lopez Discharge Problem: Dyspnea, Alcohol overdose, Hypoxia, Altered mental status Patient Disposition: Admitted As Inpatient Forms Stand Alone Forms: [facility] Prescriptions Prescriptions: No Action lithium carbonate 600 mg capsule 600 mg PO QPM RF: 0 albuterol sulfate 90 mcg/actuation HFA aerosol inhaler 2 puff inhalation Q6H PRN (Reason: shortness of breath or wheezing) Qty: 8.5 RF: 0 duloxetine 60 mg capsule,delayed release(DR/EC) 90 mg PO QAM RF: 0 metoprolol tartrate 50 mg tablet 50 mg PO BID RF: 0 lithium carbonate 300 mg tablet 300 mg PO QAM RF: 0 Referrals Referrals: PCP,NO [Primary Care Provider] - Discharge Problem: Dyspnea Qualifiers: Dyspnea type: unspecified Qualified Code(s): R06.00 - Dyspnea, unspecified Alcohol overdose Qualifiers: Encounter type: initial encounter Injury intent: undetermined intent Qualified Code(s): T51.94XA - Toxic effect of unspecified alcohol, undetermined, initial encounter Altered mental status Qualifiers: Altered mental status type: unspecified Qualified Code(s): R41.82 - Altered mental status, unspecified
[2021-08-23 04:27] LABS: Hematocrit (blood only) 38.9 % (37-47); Immature Granulocytes % (auto) 0.7 %; Lymphocytes # (auto) 1.15 K/uL (1.2-3.4); Lymphocytes % (auto) 7.5 %; Mean Corpuscular Hemoglobin 31.3 pg (25-34); Mean Corpuscular Hgb Conc 33.4 g/dL (32-36); Mean Corpuscular Volume 93.7 fL (80-100); Mean Platelet Volume 10.8 fL (7.4-10.4); Monocytes # (auto) 0.46 K/uL (0.11-0.59); Neutrophils # (auto) 13.66 K/uL (1.4-6.5); Neutrophils % (auto) 88.8 %; Nucleated RBC # (auto) 0.02 K/uL (0-0); Nucleated RBC % (auto) 0.1 %; Platelet Count 360 K/uL (130-400); RDW Standard Deviation 44.8 fL (36.4-46.3); Red Blood Count 4.15 M/uL (4.2-5.4); White Blood Count 15.37 K/uL (4.8-10.8)
[2021-08-23 04:53] LABS: Partial Thromboplastin Ratio 0.8; Partial Thromboplastin Time 20.4 Seconds (21.0-31.0); Prothrombin Time 9.8 Seconds (9.0-12.0)
[2021-08-23 04:55] LABS: Troponin I < 0.03 ng/ml (0-0.04)
[2021-08-23 05:07] LABS: Albumin Globulin Ratio 1.5 (0.9-2); Bilirubin,Total 0.3 mg/dl (0.2-1.0); Carbon Dioxide 22 mmol/L (21-32); Sodium 142 mmol/L (136-145)
[2021-08-23 05:09] LABS: Alanine Aminotransferase 60 U/L (7-52); Albumin Level 3.7 gm/dl (3.4-5.0); Alkaline Phosphatase 47 U/L (34-104); Anion Gap 9 (3-11); Aspartate Aminotransferase 30 U/L (13-39); BUN Creatinine Ratio 10.9 (10-20); Blood Urea Nitrogen 6 mg/dl (6-23); Calcium 8.2 mg/dl (8.5-10.1); Chloride 111 mmol/L (98-107); Est GFR (Non-African American) 117.3 ml/min; Globulin 2.5 gm/dl (2.5-4.0); Glucose 123 mg/dl (70-99(Fasting)); Potassium 3.5 mmol/L (3.5-5.1); Total Protein 6.2 gm/dl (6.0-8.3)
[2021-08-23] MEDS ORDERED: BENZONATATE 100 MG CAPSULE PO ONE (05:46)
[2021-08-23 06:00] LABS: Appearance Urine Clear (Clear); Bilirubin Urine Negative (Negative); Blood Urine Negative (Negative); Color Urine Yellow; Glucose Urine UA Negative (Negative); Ketones Urine Negative (Negative); Leukocyte Esterase Urine Negative (Negative); Nitrite Urine Negative (Negative); Protein Urine Negative (Negative); Urobilinogen Urine Negative (Negative)
[2021-08-23 06:22] LABS: Amphetamines+Metham, Urine Neg (Neg); Barbiturates, Urine Neg (Neg); Benzodiazepine, Urine Neg (Neg); Cocaine, Urine Neg (Neg); MDMA (Ecstacy), Urine Neg (Neg); Methadone, Urine Neg (Neg); Opiate, Urine Neg (Neg); Phencyclidine, Urine Neg (Neg)
[2021-08-23] MEDS ORDERED: ALBUTEROL HFA 8 GM INHALER INH ONE (06:38)
--- NOTE | 2021-08-23 06:39 | CT Scan Report ---
CT OF THE HEAD WITHOUT CONTRAST CLINICAL HISTORY: Altered mental status. COMPARISON STUDY: Head CT March 03, 2015. CTA of the head June 17, 2018. MRI of the brain Januar 2018. CT DOSE: 614.27 mGy.cm TECHNIQUE: Helical axial images of the head were obtained without IV contrast. Automated exposure con trol was utilized for the study. A dose lowering technique was utilized adhering to the principles o f ALARA. FINDINGS: No acute intracranial hemorrhage, midline shift or mass effect is present. The ventricular system is unremarkable. The basal cisterns are patent. No extra-axial collections are present. There are no findings to suggest acute dural sinus thrombosis or acute territorial infarct. No significant calvarial abnormalities are present. Visualized portions of the sinuses and mastoid air cells are susana ar. IMPRESSION: No acute intracranial findings. ACT 112: Negative or not required by law. Electronically signed by: Pollo Ortega M.D. 08/23/2021 6:38 AM
--- NOTE | 2021-08-23 06:42 | XRay Report ---
XR chest 1V portable CLINICAL HISTORY: Shortness of breath. COMPARISON STUDY: Chest radiograph and chest CT August 18, 2021. FINDINGS: Lung volumes are normal. Lungs are clear. There is no pneumothorax or pleural effusion. Car diac size is normal. Mediastinal contours are normal. There is no evidence for pulmonary edema. There are pediatric median sternotomy wires. IMPRESSION: No acute cardiopulmonary findings. ACT 112: Negative or not required by law. Electronically signed by: Pollo Ortega M.D. 08/23/2021 6:41 AM
[2021-08-23 08:02] LABS: D Dimer 1170 ug/L FEU (0-500)
--- NOTE | 2021-08-23 08:46 | History & Physical Report ---
Date of Service August 23, 2021 Assessment & Plan (1) COVID-19: Plan: First diagnosed on 08/04/2021 and had fevers and fatigue, progressively worsening cough and dyspnea on exertion Admitted to [facility] from 08/19-08/21 for dyspnea and suspected sepsis from pneumonia-discharged on p.o. dexamethasone and doxycycline Here today with acute respiratory failure with hypoxia secondary to COVID-19 pneumonitis and bronchitis Chest x-ray negative, but pursuing CT angiogram chest due to elevated D-dimer and persistent hypoxia, prolonged illness and hospitalization put her at risk for VTE Troponin negative, ECG without ischemic changes, does have a history of aortic valve replacement Now with mildly elevated transaminases Leukocytosis secondary to corticosteroid use Requiring 2 L nasal cannula with exertion and with sleep -Admit to medical floor with telemetry -Check CT angiogram chest to rule out PE -Continue dexamethasone 6 mg IV once daily -No role for Remdesivir or baricitinib -Follow CBC, CMP, CRP in the morning -Continue supplemental O2 to keep pulse ox greater than 90%-Will definitely need a two-step walk test prior to discharge -Start DuoNebs 4 times daily -Start Mucinex 1200 mg p.o. twice daily -Start incentive spirometry and flutter valve -Tylenol as needed for any myalgias -Continue doxycycline 100 mg p.o. twice daily x7-day course for bronchitis, check procalcitonin in the morning (2) Hypoxia: Plan: As above (3) Altered mental status: Plan: Was noted to be altered on arrival in the ER likely secondary to acute alcohol intoxication CT head negative With Covid as above but not likely contributing Now completely resolved as alcohol being metabolized Supportive care, was given 1 L IV fluids on arrival -[place] level pending but do not suspect lithium toxicity at this point (4) Urticaria: Plan: Has a history of such, follows with allergy Continue Zyrtec 10 mg daily (5) Depression: Plan: Continue home lithium, duloxetine Continue lorazepam at night as needed (6) History of open heart surgery: Plan: Had aortic valve replacement age 5 [address] Sanchez of [facility] cardiology No acute issues at this time (7) Sinus tachycardia: Plan: Has a history of such along with palpitations Not currently in sinus tachycardia -Continue metoprolol 50 mg p.o. twice daily Plan: DVT prophylaxis-Lovenox 40 mg SQ twice daily Disposition-admit to medical floor telemetry, if improving, can downgrade to medical/surgical floor discharged home with likely O2 in likely 2 days from now Full code History of Present Illness Chief Complaint: Shortness of breath Primary Care Provider: NO PCP This patient is a 41-year-old female with history of aortic valve replacement at age 5 for aortic valve stenosis, atrial ectopy with palpitations, chronic idiopathic urticaria, major depressive disorder, and recent Covid-19 infection who presents to the ER after her noted her to be short of breath while she was sleeping overnight. She first tested positive for Covid-19 on 08/04/2021 and initially had fevers and fatigue as her symptoms. That resolved and she had a lingering cough. She returned to work approximately 2 weeks later and noticed significant dyspnea on exertion especially with going up stairs and worsening cough. She presented to our ER on 08/18 and had a work-up to include CT angiogram of the chest which was negative, laboratory work-up which was normal, and she was not hypoxic at that time. She was discharged home and had been given albuterol HFA by her PCP. She continued to have significant dyspnea on exertion and presented herself to the [facility] the next day on 08/19 and was admitted for shortness of breath, and was noted to have an elevated lactate and elevated WBC count. She reports they treated her with IV antibiotics for presumed bacterial pneumonia although reports that she had a CT of the chest without contrast that was negative. She improved enough with her laboratory values that they discharged her home on p.o. doxycycline and p.o. dexamethasone. They did not do a two-step walk test before she went home and she reports that she continued to feel short of breath especially with exertion with minimal ambulation at that time. Last night, her called EMS when he noted her to be rapidly breathing in her sleep. She reports she drank some alcohol last night to help her sleep although she no longer has alcohol use disorder. She reports that she got such poor sleep in the hospital the previous few days before that that she just wanted to try to fall asleep. Her alcohol level was positive in the ER, urine drug screen negative, leukocytosis of 15 which is likely from steroids, and chest x-ray was negative. She was noted to drop as low as 84% on room air with ambulation in the room and felt very symptomatic with this. She was altered a bit on arrival as per ER provider which was likely from alcohol use and a CT of the head was performed which was negative. When I saw her, she was mentating perfectly normally. Her main complaint is cough and dyspnea on exertion. She also has noticed hand and ankle swelling since being on the dexamethasone A D-dimer came back elevated 1100 and she is agreeable to repeat CT angiogram of the chest to rule out PE. She reports she has had her tubes tied, endometrial ablation, and has not had sexual activity in a year and could definitely not be . She will be admitted for Covid-19 with pneumonitis/bronchitis, and acute respiratory failure with hypoxia. Allergies Allergy/AdvReac Type Severity Reaction Status Date / Time ampicillin Allergy Intermediate HIVES Verified 08/23/21 07:33 codeine Allergy Intermediate GI SYMPTOMS Verified 08/23/21 07:33 fentanyl Allergy Intermediate Hives Verified 08/23/21 07:33 meperidine Allergy Intermediate VEIN Verified 08/23/21 07:33 TURNED RED/PAINFUL morphine Allergy Intermediate Hives Verified 08/23/21 07:33 Penicillins Allergy Intermediate SICK TO Verified 08/23/21 07:33 STOMACH amoxicillin Allergy Mild rash Verified 08/23/21 07:33 clavulanic acid Allergy Mild rash Verified 08/23/21 07:33 Sulfa (Sulfonamide Allergy Unknown UNSURE Verified 08/23/21 07:33 Antibiotics) REACTION Opioids - Morphine Analogues Allergy Hives Verified 08/23/21 07:33 Opioids-Meperidine and Allergy Hives Verified 08/23/21 07:33 Related prednisone AdvReac Severe Tachycardia Verified 08/23/21 07:33 promethazine AdvReac Mild itching Verified 08/23/21 07:33 NARCOTIC Allergy Intermediate Hives Uncoded 08/23/21 07:33 METAL AdvReac Mild Rash Uncoded 08/23/21 07:33 Home Medications Medication Instructions Recorded Confirmed Type duloxetine 60 mg capsule,delayed 90 mg PO QAM cap 08/10/20 08/23/21 History release metoprolol tartrate 50 mg tablet 50 mg PO BID tab 04/12/21 08/23/21 History albuterol sulfate 90 mcg/actuation 2 puff INHALATION Q6H PRN #8.5 g 08/18/21 08/23/21 Rx aerosol inhaler cetirizine 10 mg tablet (Zyrtec) 10 mg PO QAM 08/23/21 08/23/21 History dexamethasone 6 mg tablet 6 mg PO HS 08/23/21 08/23/21 History doxycycline hyclate 100 mg capsule 100 mg PO BID 08/23/21 08/23/21 History duloxetine 30 mg capsule,delayed 30 mg PO HS 08/23/21 08/23/21 History release lithium carbonate 450 mg 450 mg PO HS 08/23/21 08/23/21 History tablet,extended release lorazepam 1 mg tablet 1 mg PO HS PRN 08/23/21 08/23/21 History Past Med/Surg History Medical History (Updated 08/23/21 @ 09:00 by Maty Granados MD) Abdominal bloating Abdominal pain Abscess of left thigh Alcohol intoxication Anemia Anxiety Aortic regurgitation Aortic stenosis Blood clot in vein SUPERFICIAL IN ARM S/P IV START Calculus of kidney Cervical radiculopathy Chronic constipation Classic migraine with aura Congenital heart disease in adult Degenerative disc disease BULGING DISCS Depression Fibromyalgia Gastritis HX OF H. pylori infection IN THE PAST Heart disease (09/22/12) Lumbago Migraine Osteoarthritis Paresthesias Post traumatic stress disorder Pyrosis Rash Restless leg syndrome Sinus tachycardia Sore throat Spinal stenosis Sudden onset of severe headache Suicide attempt Tachycardia Tobacco use disorder Vision disturbance Vulvar lump Surgical History Family history of reaction to anesthesia BROTHER SLOW TO WAKE UP H/O aortic valve repair AT AGE 5 [facility] 1984 H/O eye surgery H/O hand surgery LEFT INDEX FINGER TENDON REPAIR S/T CUT H/O laparoscopy ENDOMETRIOSIS History of breast biopsy BENIGN History of cardiac cath AT 17MONTHS AND AGE 5 History of colonoscopy History of dilatation and curettage History of esophagogastroduodenoscopy (EGD) Hx of tonsillectomy (09/22/12) Nausea and vomiting after administration of anesthetic agent Family History Mother Family history of diabetes mellitus Diabetes Grandmother (Maternal) Family history of diabetes mellitus Heart disease Aunt Breast cancer Ovarian cancer Uncle Myocardial infarction Sister Cancer Denies family history of Prostate cancer Colorectal cancer Social History (Updated 08/23/21 @ 08:50 by Maty Granados MD) Smoking Status: Former smoker Tobacco Type: Cigarettes packs per day: 0.5; Years Smoked: 20; Second Hand Exposure: Yes (RARE); Hx Alcohol Use: Yes Alcohol type: hard liquor Alcohol Intake Frequency: Monthly or Less Hx Substance Use: No Preferred Language: Bulgarian Communication Ability: Effective Visual Impairment: No Limitations Hearing Ability: Normal African History Professor Required: No Beliefs That Will Affect Care: None marital status: Current Living Situation: Family current occupational status: 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 Feels abdominal bloating, is passing gas, no nausea or vomiting, no fevers or chills No urinary symptoms Physical Exam Constitutional: WD/WN, vitals as above + obese Eyes: + anicteric sclerae and EOM intact bilaterally; no eyelid abnormality, no conjunctival abnormality and no nystagmus ENMT: external ear and nose normal, oropharynx normal Neck: trachea midline, no thyromegaly Respiratory: normal respiratory effort and + cough; not tachypneic Auscultation: lungs clear to auscultation bilaterally; no rhonchi and no wheezes Cardiovascular: RRR, no murmur, no edema (No calf tenderness) Chest (Breasts): Chest: normal inspection of chest Gastrointestinal (Abdomen): normal bowel sounds, soft, nontender, no hepatosplenomegaly Musculoskeletal: Extremities: extremities normal to inspection; no cyanosis and no clubbing Skin: no rashes, warm and dry Neurologic: moves all extremities and awake; no focal motor deficits Psychiatric: A+Ox3, euthymic affect Lymphatic: no lymphedema Results & Data Results & Data ([facility]) Vital Signs (Past 12 Hours) Vital Signs Temp Pulse Pulse Resp BP BP Pulse Ox 08/23/21 05:31 78 20 135/65 94 08/23/21 05:00 76 20 112/62 94 08/23/21 04:06 76 20 114/69 96 08/23/21 04:04 87 L 08/23/21 03:15 37.0 C 78 24 120/70 97 Laboratory Results 08/23/21 08/23/21 08/23/21 Range/Units 07:22 06:42 05:29 WBC (4.8-10.8) K/uL RBC (4.2-5.4) M/uL Hgb (12.0-16.0) g/dL Hct (37-47) % MCV (80-100) fL MCH (25-34) pg MCHC (32-36) g/dL RDW Std Deviation (36.4-46.3) fL RDW Coeff of Gianfranco (11.5-14.5) % Plt Count (130-400) K/uL MPV (7.4-10.4) fL Immature Gran % (Auto) % Neut % (Auto) % Lymph % (Auto) % [place] % (Auto) % Eos % (Auto) % Baso % (Auto) % Neut # (Auto) (1.4-6.5) K/uL Lymph # (Auto) (1.2-3.4) K/uL [place] # (Auto) (0.11-0.59) K/uL Eos # (Auto) (0-0.5) K/uL Baso # (Auto) (0-0.2) K/uL Immature Gran # (Auto) (0.00-0.02) K/uL Absolute Nucleated RBC (0-0) K/uL Nucleated RBC % (auto) % PT INR APTT PTT Ratio D-Dimer (0-500) ug/L FEU Sodium (136-145) mmol/L Potassium (3.5-5.1) mmol/L Chloride (98-107) mmol/L Carbon Dioxide (21-32) mmol/L Anion Gap (3-11) BUN (6-23) mg/dl Creatinine (0.6-1.2) mg/dl Est Cr Clr Drug Dosing ml/min Est GFR ( Amer) ml/min Est GFR (Non-Af Amer) ml/min BUN/Creatinine Ratio (10-20) Glucose (70-99(Fasting)) mg/dl Calcium (8.5-10.1) mg/dl Magnesium (1.7-2.4) mg/dl Total Bilirubin (0.2-1.0) mg/dl AST (13-39) U/L ALT (7-52) U/L Alkaline Phosphatase (34-104) U/L Troponin I (0-0.04) ng/ml Total Protein (6.0-8.3) gm/dl Albumin (3.4-5.0) gm/dl Globulin (2.5-4.0) gm/dl Albumin/Globulin Ratio (0.9-2) Urine Color Urine Appearance (Clear) Urine pH (4.5-7.5) Ur Specific [place] (1.000-1.030) Urine Protein (Negative) Urine Glucose (UA) (Negative) Urine Ketones (Negative) Urine Blood (Negative) Urine Nitrite (Negative) Urine Bilirubin (Negative) Urine Urobilinogen (Negative) Ur Leukocyte Esterase (Negative) Urine Opiates Screen Neg (Neg) Ur Methadone, Qual Neg (Neg) Urine Barbiturates Neg (Neg) Ur Phencyclidine (PCP) Neg (Neg) U Amphetamin/Meth Scrn Neg (Neg) MDMA (Ecstasy) Screen Neg (Neg) U Benzodiazepines Scrn Neg (Neg) [place] 0.4 L (0.6-1.2) mmol/L Ur Cocaine Metabolite Neg (Neg) U Marijuana (THC) Screen Neg (Neg) Ethyl Alcohol mg/dL (<10.0) mg/dl SARS-CoV-2, RNA, NAAT POSITIVE A* (NEGATIVE) 08/23/21 08/23/21 08/23/21 Range/Units 05:29 04:24 04:24 WBC (4.8-10.8) K/uL RBC (4.2-5.4) M/uL Hgb (12.0-16.0) g/dL Hct (37-47) % MCV (80-100) fL MCH (25-34) pg MCHC (32-36) g/dL RDW Std Deviation (36.4-46.3) fL RDW Coeff of Gianfranco (11.5-14.5) % Plt Count (130-400) K/uL MPV (7.4-10.4) fL Immature Gran % (Auto) % Neut % (Auto) % Lymph % (Auto) % [place] % (Auto) % Eos % (Auto) % Baso % (Auto) % Neut # (Auto) (1.4-6.5) K/uL Lymph # (Auto) (1.2-3.4) K/uL [place] # (Auto) (0.11-0.59) K/uL Eos # (Auto) (0-0.5) K/uL Baso # (Auto) (0-0.2) K/uL Immature Gran # (Auto) (0.00-0.02) K/uL Absolute Nucleated RBC (0-0) K/uL Nucleated RBC % (auto) % PT 9.8 INR 1.0 APTT 20.4 L PTT Ratio 0.8 D-Dimer 1170 H* (0-500) ug/L FEU Sodium (136-145) mmol/L Potassium (3.5-5.1) mmol/L Chloride (98-107) mmol/L Carbon Dioxide (21-32) mmol/L Anion Gap (3-11) BUN (6-23) mg/dl Creatinine (0.6-1.2) mg/dl Est Cr Clr Drug Dosing ml/min Est GFR ( Amer) ml/min Est GFR (Non-Af Amer) ml/min BUN/Creatinine Ratio (10-20) Glucose (70-99(Fasting)) mg/dl Calcium (8.5-10.1) mg/dl Magnesium (1.7-2.4) mg/dl Total Bilirubin (0.2-1.0) mg/dl AST (13-39) U/L ALT (7-52) U/L Alkaline Phosphatase (34-104) U/L Troponin I (0-0.04) ng/ml Total Protein (6.0-8.3) gm/dl Albumin (3.4-5.0) gm/dl Globulin (2.5-4.0) gm/dl Albumin/Globulin Ratio (0.9-2) Urine Color Yellow Urine Appearance Clear (Clear) Urine pH 8.0 H (4.5-7.5) Ur Specific [place] 1.010 (1.000-1.030) Urine Protein Negative (Negative) Urine Glucose (UA) Negative (Negative) Urine Ketones Negative (Negative) Urine Blood Negative (Negative) Urine Nitrite Negative (Negative) Urine Bilirubin Negative (Negative) Urine Urobilinogen Negative (Negative) Ur Leukocyte Esterase Negative (Negative) Urine Opiates Screen (Neg) Ur Methadone, Qual (Neg) Urine Barbiturates (Neg) Ur Phencyclidine (PCP) (Neg) U Amphetamin/Meth Scrn (Neg) MDMA (Ecstasy) Screen (Neg) U Benzodiazepines Scrn (Neg) [place] (0.6-1.2) mmol/L Ur Cocaine Metabolite (Neg) U Marijuana (THC) Screen (Neg) Ethyl Alcohol mg/dL (<10.0) mg/dl SARS-CoV-2, RNA, NAAT (NEGATIVE) 08/23/21 08/23/21 08/23/21 Range/Units 04:24 03:48 03:48 WBC (4.8-10.8) K/uL RBC (4.2-5.4) M/uL Hgb (12.0-16.0) g/dL Hct (37-47) % MCV (80-100) fL MCH (25-34) pg MCHC (32-36) g/dL RDW Std Deviation (36.4-46.3) fL RDW Coeff of Gianfranco (11.5-14.5) % Plt Count (130-400) K/uL MPV (7.4-10.4) fL Immature Gran % (Auto) % Neut % (Auto) % Lymph % (Auto) % [place] % (Auto) % Eos % (Auto) % Baso % (Auto) % Neut # (Auto) (1.4-6.5) K/uL Lymph # (Auto) (1.2-3.4) K/uL [place] # (Auto) (0.11-0.59) K/uL Eos # (Auto) (0-0.5) K/uL Baso # (Auto) (0-0.2) K/uL Immature Gran # (Auto) (0.00-0.02) K/uL Absolute Nucleated RBC (0-0) K/uL Nucleated RBC % (auto) % PT Cancelled INR Cancelled APTT Cancelled PTT Ratio Cancelled D-Dimer (0-500) ug/L FEU Sodium 142 (136-145) mmol/L Potassium 3.5 (3.5-5.1) mmol/L Chloride 111 H (98-107) mmol/L Carbon Dioxide 22 (21-32) mmol/L Anion Gap 9 (3-11) BUN 6 (6-23) mg/dl Creatinine 0.55 L (0.6-1.2) mg/dl Est Cr Clr Drug Dosing 132.0 ml/min Est GFR ( Amer) 136.0 ml/min Est GFR (Non-Af Amer) 117.3 ml/min BUN/Creatinine Ratio 10.9 (10-20) Glucose 123 H (70-99(Fasting)) mg/dl Calcium 8.2 L (8.5-10.1) mg/dl Magnesium 2.0 (1.7-2.4) mg/dl Total Bilirubin 0.3 (0.2-1.0) mg/dl AST 30 (13-39) U/L ALT 60 H (7-52) U/L Alkaline Phosphatase 47 (34-104) U/L Troponin I < 0.03 (0-0.04) ng/ml Total Protein 6.2 (6.0-8.3) gm/dl Albumin 3.7 (3.4-5.0) gm/dl Globulin 2.5 (2.5-4.0) gm/dl Albumin/Globulin Ratio 1.5 (0.9-2) Urine Color Urine Appearance (Clear) Urine pH (4.5-7.5) Ur Specific [place] (1.000-1.030) Urine Protein (Negative) Urine Glucose (UA) (Negative) Urine Ketones (Negative) Urine Blood (Negative) Urine Nitrite (Negative) Urine Bilirubin (Negative) Urine Urobilinogen (Negative) Ur Leukocyte Esterase (Negative) Urine Opiates Screen (Neg) Ur Methadone, Qual (Neg) Urine Barbiturates (Neg) Ur Phencyclidine (PCP) (Neg) U Amphetamin/Meth Scrn (Neg) MDMA (Ecstasy) Screen (Neg) U Benzodiazepines Scrn (Neg) [place] (0.6-1.2) mmol/L Ur Cocaine Metabolite (Neg) U Marijuana (THC) Screen (Neg) Ethyl Alcohol mg/dL 174.8 H (<10.0) mg/dl SARS-CoV-2, RNA, NAAT (NEGATIVE) 08/23/21 Range/Units 03:48 WBC 15.37 H (4.8-10.8) K/uL RBC 4.15 L (4.2-5.4) M/uL Hgb 13.0 (12.0-16.0) g/dL Hct 38.9 (37-47) % MCV 93.7 (80-100) fL MCH 31.3 (25-34) pg MCHC 33.4 (32-36) g/dL RDW Std Deviation 44.8 (36.4-46.3) fL RDW Coeff of Gianfranco 13.0 (11.5-14.5) % Plt Count 360 (130-400) K/uL MPV 10.8 H (7.4-10.4) fL Immature Gran % (Auto) 0.7 % Neut % (Auto) 88.8 % Lymph % (Auto) 7.5 % [place] % (Auto) 3.0 % Eos % (Auto) 0.0 % Baso % (Auto) 0.0 % Neut # (Auto) 13.66 H (1.4-6.5) K/uL Lymph # (Auto) 1.15 L (1.2-3.4) K/uL [place] # (Auto) 0.46 (0.11-0.59) K/uL Eos # (Auto) 0.00 (0-0.5) K/uL Baso # (Auto) 0.00 (0-0.2) K/uL Immature Gran # (Auto) 0.10 H (0.00-0.02) K/uL Absolute Nucleated RBC 0.02 H (0-0) K/uL Nucleated RBC % (auto) 0.1 % PT INR APTT PTT Ratio D-Dimer (0-500) ug/L FEU Sodium (136-145) mmol/L Potassium (3.5-5.1) mmol/L Chloride (98-107) mmol/L Carbon Dioxide (21-32) mmol/L Anion Gap (3-11) BUN (6-23) mg/dl Creatinine (0.6-1.2) mg/dl Est Cr Clr Drug Dosing ml/min Est GFR ( Amer) ml/min Est GFR (Non-Af Amer) ml/min BUN/Creatinine Ratio (10-20) Glucose (70-99(Fasting)) mg/dl Calcium (8.5-10.1) mg/dl Magnesium (1.7-2.4) mg/dl Total Bilirubin (0.2-1.0) mg/dl AST (13-39) U/L ALT (7-52) U/L Alkaline Phosphatase (34-104) U/L Troponin I (0-0.04) ng/ml Total Protein (6.0-8.3) gm/dl Albumin (3.4-5.0) gm/dl Globulin (2.5-4.0) gm/dl Albumin/Globulin Ratio (0.9-2) Urine Color Urine Appearance (Clear) Urine pH (4.5-7.5) Ur Specific [place] (1.000-1.030) Urine Protein (Negative) Urine Glucose (UA) (Negative) Urine Ketones (Negative) Urine Blood (Negative) Urine Nitrite (Negative) Urine Bilirubin (Negative) Urine Urobilinogen (Negative) Ur Leukocyte Esterase (Negative) Urine Opiates Screen (Neg) Ur Methadone, Qual (Neg) Urine Barbiturates (Neg) Ur Phencyclidine (PCP) (Neg) U Amphetamin/Meth Scrn (Neg) MDMA (Ecstasy) Screen (Neg) U Benzodiazepines Scrn (Neg) [place] (0.6-1.2) mmol/L Ur Cocaine Metabolite (Neg) U Marijuana (THC) Screen (Neg) Ethyl Alcohol mg/dL (<10.0) mg/dl SARS-CoV-2, RNA, NAAT (NEGATIVE) Diagnostic Findings Chest X-Ray 08/23/21 03:48 XR chest 1V portable CLINICAL HISTORY: Shortness of breath. COMPARISON STUDY: Chest radiograph and chest CT August 18, 2021. FINDINGS: Lung volumes are normal. Lungs are clear. There is no pneumothorax or pleural effusion. Cardiac size is normal. Mediastinal contours are normal. There is no evidence for pulmonary edema. There are pediatric median sternotomy wires. IMPRESSION: No acute cardiopulmonary findings. ACT 112: Negative or not required by law. Electronically signed by: Pollo Ortega M.D. 08/23/2021 6:[address] 08/23/21 03:48 CT OF THE HEAD WITHOUT CONTRAST CLINICAL HISTORY: Altered mental status. COMPARISON STUDY: Head CT March 03, 2015. CTA of the head June 17, 2018. MRI of the brain August 19, 2018. CT DOSE: 614.27 mGy.cm TECHNIQUE: Helical axial images of the head were obtained without IV contrast. Automated exposure control was utilized for the study. A dose lowering technique was utilized adhering to the principles of ALARA. FINDINGS: No acute intracranial hemorrhage, midline shift or mass effect is present. The ventricular system is unremarkable. The basal cisterns are patent. No extra-axial collections are present. There are no findings to suggest acute dural sinus thrombosis or acute territorial infarct. No significant calvarial abnormalities are present. Visualized portions of the sinuses and mastoid air cells are clear. IMPRESSION: No acute intracranial findings. ACT 112: Negative or not required by law. Electronically signed by: Pollo Ortega M.D. 08/23/2021 6:38 AM ECG Additional Comments: ECG on 08/23/2021 at 3:59 AM with normal sinus rhythm, nonspecific T wave abnormality in anterior leads, unchanged from previous, QTC borderline at 467 Code Status & VTE Plan Code Status Full code VTE Prophylaxis Plan VTE Prophylaxis will be ordered: Yes PG Care Time/CCT Total # of Minutes Spent Total Time Spent with Patient: Total time spent is greater than 50% in coordination of care (as documented) at patient's floor/unit and/or counseling patient: Coding Level of Care Code 46220 Initial Inpt Care Lvl 3 Diagnoses COVID-19 U07.1 Altered mental status R41.82 Altered mental status type: unspecified Hypoxia R09.02 Urticaria L50.9 Depression F33.2 Active/Remission status: currently active Depression Type: major depressive disorder Major depression episode severity: severe Major depression recurrence: recurrent Psychotic features: without psychotic features History of open heart surgery Z98.890 Sinus tachycardia R00.0 (1) Altered mental status Altered mental status type: unspecified Qualified Code(s): R41.82 - Altered mental status, unspecified (2) Depression Active/Remission status: currently active Depression Type: major depressive disorder Major depression episode severity: severe Major depression recurrence: recurrent Psychotic features: without psychotic features Qualified Code(s): F33.2 - Major depressive disorder, recurrent severe without psychotic features
[2021-08-23] MEDS ORDERED: OPTIRAY 320 125ml IV ONE (10:05)
--- NOTE | 2021-08-23 10:24 | CT Scan Report ---
CT ANGIOGRAPHY OF THE CHEST, PULMONARY EMBOLUS PROTOCOL CLINICAL HISTORY: PE,COVID-19, Hypoxia COMPARISON STUDY: Chest CT August 18, 2021. TECHNIQUE: Following IV administration of 120 mL of Optiray, helical axial images of the chest were o btained utilizing the pulmonary embolus protocol. Maximal intensity projections and sagittal and cor onal reformats were viewed on an independent 3D workstation. IV contrast was administered without co mplication. Automated exposure control was utilized for the study. A dose lowering technique was ut ilized adhering to the principles of ALARA. CT DOSE: 285.36 mGy.cm FINDINGS: No pulmonary emboli are identified. There is borderline cardiomegaly. Pediatric median rony rnotomy wires are noted. There are apparent post surgical findings of the ascending aorta. There is n o thoracic aortic dissection. There is no pericardial effusion. No pneumothorax is present. There has been interval development of small bilateral pleural effusions, right larger than left. No pathologi sherman enlarged thoracic lymph nodes are present. Mild groundglass opacities are noted within the lung s. There is mild interlobular septal thickening. The findings may reflect mild pulmonary edema. No ac [place] fracture or suspicious lesion is identified within visualized portions of the bony thorax. Visual ized portions of the upper abdomen are unremarkable. IMPRESSION: 1. No pulmonary emboli identified. 2. Interval development of small bilateral pleural effusions. 3. Possible mild interstitial pulmonary edema. 4. Groundglass opacities which favor atelectasis. An infectious process cannot be completely excluded . ACT 112: Negative or not required by law. Electronically signed by: Pollo Ortega M.D. 08/23/2021 10:22 AM
[2021-08-23] MEDS ORDERED: ACETAMINOPHEN 325 MG TAB PO PRN (10:48)
[2021-08-23] MEDS ORDERED: bisacodyL 10 MG SUPP PR PRN (10:48)
[2021-08-23] MEDS ORDERED: DULoxetine HCL 30 MG CAP PO SCH (10:48)
[2021-08-23] MEDS ORDERED: ALUMINUM/MAGNESIUM SUSP 30 ML UDC PO PRN (10:48)
[2021-08-23] MEDS ORDERED: MAGNESIUM HYDROXIDE SUSP 30 ML UDC PO PRN (10:48)
[2021-08-23] MEDS ORDERED: ONDANSETRON INJ 2 MG/ML 2 ML VIAL IV PRN (10:48)
[2021-08-23] MEDS ORDERED: FUROSEMIDE INJ 20 MG/2 ML VIAL IV ONE (11:00)
--- NOTE | 2021-08-23 12:15 | Electrocardiogram Report ---
Test Reason : Blood Pressure : / mmHG Vent. Rate : 079 BPM Atrial Rate : 079 BPM P-R Int : 140 ms QRS Dur : 090 ms QT Int : 408 ms P-R-T Axes : 057 042 066 degrees QTc Int : 467 ms Normal sinus rhythm Nonspecific T wave abnormality Abnormal ECG When compared with ECG of 18-AUG-2021 19:08, QT has lengthened Confirmed by Felton Martins ([id number]) on 08/23/2021 12:15:20 PM Referred By: REFERRED SELF Confirmed By:Bobby Martins
[2021-08-23] MEDS: ALBUT/IPRATROP 3MG/0.5MG NEB 3 ML VIAL NEB SCH ×3 (12:16→19:50)
[2021-08-23] MEDS: CETIRIZINE HCL 10 MG TABLET PO SCH (12:44)
[2021-08-23] MEDS: DOCUSATE SODIUM/SENNA 50/8.6MG TAB PO SCH ×2 (12:46→21:07)
[2021-08-23] MEDS: DOXYCYCLINE HYCLATE 100 MG CAP PO SCH ×2 (12:47→21:09)
[2021-08-23] MEDS: METOPROLOL TARTRATE 50 MG TAB PO SCH ×2 (12:51→21:09)
[2021-08-23] MEDS: guaiFENesin 600 MG TABCR PO SCH ×2 (12:52→21:08)
[2021-08-23] MEDS: ENOXAPARIN INJ 40 MG/0.4 ML SYR SQ SCH ×2 (12:53→21:19)
[2021-08-23] MEDS: dexAMETHasone 6 MG in SYRINGE 0 ML IV SCH (12:55)
[2021-08-23] MEDS: POLYETHYLENE (MIRALAX) 17 GM PACK PO SCH (12:58)
[2021-08-23] MEDS: DULoxetine HCL 60 MG CAP PO SCH (13:47)
[2021-08-23] MEDS: LORazepam 1 MG TAB PO PRN (21:07)
[2021-08-23] MEDS: DULoxetine HCL 30 MG CAP PO SCH (21:08)
[2021-08-23] MEDS: LITHIUM CARBONATE 450 MG TABCR PO SCH (21:09)
[2021-08-24] MEDS: ALBUT/IPRATROP 3MG/0.5MG NEB 3 ML VIAL NEB SCH ×4 (07:42→19:13)
[2021-08-24 07:58] LABS: Alanine Aminotransferase 44 U/L (7-52); Albumin Globulin Ratio 1.4 (0.9-2); Albumin Level 3.6 gm/dl (3.4-5.0); Alkaline Phosphatase 46 U/L (34-104); Anion Gap 6 (3-11); Aspartate Aminotransferase 16 U/L (13-39); BUN Creatinine Ratio 20.3 (10-20); Bilirubin,Total 0.4 mg/dl (0.2-1.0); Blood Urea Nitrogen 13 mg/dl (6-23); C Reactive Protein < 0.50 mg/dl (0-0.5); Calcium 8.4 mg/dl (8.5-10.1); Carbon Dioxide 27 mmol/L (21-32); Chloride 104 mmol/L (98-107); Creatinine Clr Calc Pharmacy 119.7 ml/min; Est GFR (African American) 129.4 ml/min; Est GFR (Non-African American) 111.6 ml/min; Globulin 2.5 gm/dl (2.5-4.0); Glucose 91 mg/dl (70-99(Fasting)); Magnesium 1.9 mg/dl (1.7-2.4); Phosphorus 3.4 mg/dl (2.5-4.9); Potassium 3.6 mmol/L (3.5-5.1); Sodium 137 mmol/L (136-145); Total Protein 6.1 gm/dl (6.0-8.3)
[2021-08-24] MEDS: CETIRIZINE HCL 10 MG TABLET PO SCH (08:18)
[2021-08-24] MEDS: POLYETHYLENE (MIRALAX) 17 GM PACK PO SCH (08:18)
[2021-08-24] MEDS: DULoxetine HCL 60 MG CAP PO SCH (08:18)
[2021-08-24] MEDS: ENOXAPARIN INJ 40 MG/0.4 ML SYR SQ SCH ×2 (08:19→21:02)
[2021-08-24] MEDS: guaiFENesin 600 MG TABCR PO SCH ×2 (08:19→21:04)
[2021-08-24] MEDS: DOXYCYCLINE HYCLATE 100 MG CAP PO SCH ×2 (08:20→21:03)
[2021-08-24] MEDS: DOCUSATE SODIUM/SENNA 50/8.6MG TAB PO SCH ×2 (08:20→21:04)
[2021-08-24] MEDS: METOPROLOL TARTRATE 50 MG TAB PO SCH ×3 (08:20→21:03)
[2021-08-24] MEDS: dexAMETHasone 6 MG in SYRINGE 0 ML IV SCH (09:26)
[2021-08-24] MEDS ORDERED: guaiFENesin/DEXTROM SYRUP 200MG/20MG 10ML UDC PO STA (12:32)
[2021-08-24] MEDS ORDERED: POTASSIUM CHLORIDE CRTAB 20 MEQ TABCR PO STA (12:32)
[2021-08-24] MEDS ORDERED: FUROSEMIDE INJ 20 MG/2 ML VIAL IV ONE (12:32)
[2021-08-24] MEDS ORDERED: guaiFENesin/DEXTROM SYRUP 200MG/20MG 10ML UDC PO PRN (12:32)
--- NOTE | 2021-08-24 12:41 | Hospitalist Progress Note ---
Date of Service August 24, 2021 Assessment & Plan (1) COVID-19: Plan: First diagnosed on 08/04/2021 and had fevers and fatigue, progressively worsening cough and dyspnea on exertion Admitted to [facility] from 08/19-08/21 for dyspnea and suspected sepsis from pneumonia-discharged on p.o. dexamethasone and doxycycline Here with acute respiratory failure with hypoxia secondary to COVID-19 pneumonitis and bronchitis Chest x-ray negative, CT angiogram chest due to elevated D-dimer and persistent hypoxia, prolonged illness and hospitalization put her at risk for VTE--> no PE but with bilat pleural effusions Procal and CRP both negative Troponin negative, ECG without ischemic changes, does have a history of aortic valve and aortic repair for supravalvular aortic stenosis in childhood Now with mildly elevated transaminases Leukocytosis secondary to corticosteroid use Requiring 2 L nasal cannula with exertion and with sleep ECHO with preserved EF, mild-mod AI, and pro BNP 105 (slightly elevated) -gave a dose of IV lasix on 08/23 and improved--> will give another dose lasix today for bibasilar crackles on exam, give KCl 40meq po x 1 along with lasix -Continue dexamethasone 6 mg IV once daily -No role for Remdesivir or baricitinib -Follow CBC, CMP, mag in the morning -Continue supplemental O2 to keep pulse ox greater than 90%-Will definitely need a two-step walk test prior to discharge -cont DuoNebs 4 times daily -cont Mucinex 1200 mg p.o. twice daily and add RObitussin DM prn for cough -cont incentive spirometry and flutter valve -Tylenol as needed for any myalgias -Continue doxycycline 100 mg p.o. twice daily x7-day course for bronchitis -check CXR in AM (2) Hypoxia: Plan: As above (3) Altered mental status: Plan: Was noted to be altered on arrival in the ER likely secondary to acute alcohol intoxication CT head negative With Covid as above but not likely contributing Now completely resolved as alcohol being metabolized Supportive care, was given 1 L IV fluids on arrival but now diuresing as above for volume overload -[place] level low-do not suspect lithium toxicity at this point (4) Urticaria: Plan: Has a history of such, follows with allergy Continue Zyrtec 10 mg daily (5) Depression: Plan: Continue home lithium, duloxetine Continue lorazepam at night as needed (6) History of open heart surgery: Plan: Had aortic valve repair and aorta age [address] Sanchez of [facility] cardiology No acute issues at this time (7) Sinus tachycardia: Plan: Has a history of such along with palpitations Not currently in sinus tachycardia -Continue metoprolol 50 mg p.o. twice daily Plan: DVT prophylaxis-Lovenox 40 mg SQ twice daily Disposition-continued stay on medical floor telemetry,possible discharge to home with likely O2 tomorrow Full code Admission and Anticipated Discharge Date Admission Date: August 23, 2021 Subjective Still with cough and some PEREZ but overall improved from yesterday. No pains or nausea, is eating. Tele with SB and NSR Review of Systems Review of Systems: All systems reviewed & are unremarkable except as noted in HPI & below Physical Exam Constitutional: WD/WN, vitals as above + obese Eyes: + anicteric sclerae and EOM intact bilaterally; no eyelid abnormality, no conjunctival abnormality and no nystagmus ENMT: external ear and nose normal, oropharynx normal Neck: trachea midline, no thyromegaly Respiratory: normal respiratory effort and + cough; not tachypneic Auscultation: + crackles (bibasilar); no rhonchi and no wheezes Cardiovascular: RRR, no murmur, no edema (No calf tenderness) Chest (Breasts): Chest: normal inspection of chest Gastrointestinal (Abdomen): normal bowel sounds, soft, nontender, no hepatosplenomegaly Musculoskeletal: Extremities: extremities normal to inspection; no cyanosis and no clubbing Skin: no rashes, warm and dry Neurologic: moves all extremities and awake; no focal motor deficits Psychiatric: A+Ox3, euthymic affect Lymphatic: no lymphedema Results & Data Results & Data ([facility]) Vital Signs (Past 12 Hours) Vital Signs Temp Pulse Pulse Resp BP BP Pulse Ox 08/24/21 11:28 36.6 C 77 18 111/48 L 97 08/24/21 11:00 08/24/21 10:47 72 20 96 08/24/21 07:54 55 L 08/24/21 07:44 67 20 95 08/24/21 07:31 36.6 C 68 16 142/67 H 97 08/24/21 03:00 36.9 C 88 18 133/60 98 Pulse Ox 08/24/21 11:28 08/24/21 11:00 95 08/24/21 10:47 08/24/21 07:54 08/24/21 07:44 08/24/21 07:31 08/24/21 03:00 Laboratory Results 08/24/21 08/24/21 08/23/21 Range/Units 06:44 06:44 12:25 Sodium 137 (136-145) mmol/L Potassium 3.6 (3.5-5.1) mmol/L Chloride 104 (98-107) mmol/L Carbon Dioxide 27 (21-32) mmol/L Anion Gap 6 (3-11) BUN 13 (6-23) mg/dl Creatinine 0.64 (0.6-1.2) mg/dl Est Cr Clr Drug Dosing 119.7 ml/min Est GFR ( Amer) 129.4 ml/min Est GFR (Non-Af Amer) 111.6 ml/min BUN/Creatinine Ratio 20.3 H (10-20) Glucose 91 (70-99(Fasting)) mg/dl Calcium 8.4 L (8.5-10.1) mg/dl Phosphorus 3.4 (2.5-4.9) mg/dl Magnesium 1.9 (1.7-2.4) mg/dl Total Bilirubin 0.4 (0.2-1.0) mg/dl AST 16 (13-39) U/L ALT 44 (7-52) U/L Alkaline Phosphatase 46 (34-104) U/L C-Reactive Protein < 0.50 (0-0.5) mg/dl B-Natriuretic Peptide 105 H (0-100) pg/ml Total Protein 6.1 (6.0-8.3) gm/dl Albumin 3.6 (3.4-5.0) gm/dl Globulin 2.5 (2.5-4.0) gm/dl Albumin/Globulin Ratio 1.4 (0.9-2) Procalcitonin < 0.05 (0-0.5) ng/ml PG Care Time/CCT Total # of Minutes Spent Total Time Spent with Patient: Total time spent is greater than 50% in coordination of care (as documented) at patient's floor/unit and/or counseling patient: Coding Level of Care Code 18249 Subseq Hosp Care Lvl 2 Diagnoses COVID-19 U07.1 Hypoxia R09.02 Altered mental status R41.82 Altered mental status type: unspecified Urticaria L50.9 Depression F33.2 Active/Remission status: currently active Depression Type: major depressive disorder Major depression episode severity: severe Major depression recurrence: recurrent Psychotic features: without psychotic features History of open heart surgery Z98.890 Sinus tachycardia R00.0 (1) Altered mental status Altered mental status type: unspecified Qualified Code(s): R41.82 - Altered mental status, unspecified (2) Depression Active/Remission status: currently active Depression Type: major depressive disorder Major depression episode severity: severe Major depression recurrence: recurrent Psychotic features: without psychotic features Qualified Code(s): F33.2 - Major depressive disorder, recurrent severe without psychotic features
[2021-08-24] MEDS: LORazepam 1 MG TAB PO PRN (21:01)
[2021-08-24] MEDS: LITHIUM CARBONATE 450 MG TABCR PO SCH (21:03)
[2021-08-24] MEDS: DULoxetine HCL 30 MG CAP PO SCH (21:03)
[2021-08-25 06:17] LABS: Basophils # (auto) 0.02 K/uL (0-0.2); Basophils % (auto) 0.1 %; Eosinophils # (auto) 0.02 K/uL (0-0.5); Eosinophils % (auto) 0.1 %; Hematocrit (blood only) 43.4 % (37-47); Hemoglobin 14.4 g/dL (12.0-16.0); Immature Granulocytes # (auto) 0.18 K/uL (0.00-0.02); Immature Granulocytes % (auto) 0.9 %; Lymphocytes # (auto) 2.76 K/uL (1.2-3.4); Lymphocytes % (auto) 14.2 %; Mean Corpuscular Hemoglobin 31.3 pg (25-34); Mean Corpuscular Hgb Conc 33.2 g/dL (32-36); Mean Corpuscular Volume 94.3 fL (80-100); Mean Platelet Volume 11.2 fL (7.4-10.4); Monocytes # (auto) 1.56 K/uL (0.11-0.59); Neutrophils # (auto) 14.91 K/uL (1.4-6.5); Neutrophils % (auto) 76.7 %; Platelet Count 355 K/uL (130-400); RDW Coefficient of Variation 13.2 % (11.5-14.5); RDW Standard Deviation 45.3 fL (36.4-46.3); White Blood Count 19.45 K/uL (4.8-10.8)
[2021-08-25 06:50] LABS: Albumin Globulin Ratio 1.5 (0.9-2); Albumin Level 3.8 gm/dl (3.4-5.0); BUN Creatinine Ratio 24.6 (10-20); Bilirubin,Total 0.4 mg/dl (0.2-1.0); Calcium 8.8 mg/dl (8.5-10.1); Creatinine Clr Calc Pharmacy 117.6 ml/min; Est GFR (African American) 131.4 ml/min; Est GFR (Non-African American) 113.4 ml/min; Globulin 2.6 gm/dl (2.5-4.0); Potassium 3.9 mmol/L (3.5-5.1); Total Protein 6.4 gm/dl (6.0-8.3)
--- NOTE | 2021-08-25 07:33 | XRay Report ---
XR chest 1V portable HISTORY: 41 years-old Female hypoxia,f/u pleural effusions acute hypoxia COMPARISON: CTA chest and chest radiograph 08/23/2021 TECHNIQUE: Portable AP view of the chest FINDINGS: Cardiomediastinal and hilar silhouettes are within normal limits. Mild subsegmental bibasilar densiti es are again noted. Trace pleural effusions. No pneumothorax or overt pulmonary edema. Degenerative c hanges of the shoulders and spine. Suggested surgical clip projects over the right breast. IMPRESSION: Trace pleural effusions with persistent bibasilar opacities favoring atelectasis. ACT 112: Negative or not required by law. The above report was generated using voice recognition software. It may contain grammatical, syntax o r spelling errors. Electronically signed by: Franck Barnes M.D. 08/25/2021 7:31 AM
[2021-08-25] MEDS: ALBUT/IPRATROP 3MG/0.5MG NEB 3 ML VIAL NEB SCH ×2 (07:49→11:35)
[2021-08-25] MEDS: dexAMETHasone 6 MG in SYRINGE 0 ML IV SCH (08:20)
[2021-08-25] MEDS: METOPROLOL TARTRATE 50 MG TAB PO SCH (08:21)
[2021-08-25] MEDS: guaiFENesin 600 MG TABCR PO SCH (08:21)
[2021-08-25] MEDS: CETIRIZINE HCL 10 MG TABLET PO SCH (08:21)
[2021-08-25] MEDS: DOXYCYCLINE HYCLATE 100 MG CAP PO SCH (08:21)
[2021-08-25] MEDS: DOCUSATE SODIUM/SENNA 50/8.6MG TAB PO SCH (08:22)
[2021-08-25] MEDS: DULoxetine HCL 60 MG CAP PO SCH (08:22)
[2021-08-25] MEDS: ENOXAPARIN INJ 40 MG/0.4 ML SYR SQ SCH (08:22)
[2021-08-25] MEDS: POLYETHYLENE (MIRALAX) 17 GM PACK PO SCH (08:37)
[2021-08-25] MEDS ORDERED: FUROSEMIDE INJ 20 MG/2 ML VIAL IV ONE (08:37)
[2021-08-25 12:09] VITALS: TEMP 98.8; O2SAT 100
[2021-08-25] MEDS ORDERED: ALBUT/IPRATROP 3MG/0.5MG NEB 3 ML VIAL NEB PRN (13:38)
--- NOTE | 2021-08-25 14:41 | Discharge Summary ---
Date of Service August 25, 2021 Admission HPI Per Admitting Provider This patient is a 41-year-old female with history of aortic valve replacement at age 5 for aortic valve stenosis, atrial ectopy with palpitations, chronic idiopathic urticaria, major depressive disorder, and recent Covid-19 infection who presents to the ER after her noted her to be short of breath while she was sleeping overnight. She first tested positive for Covid-19 on 08/04/2021 and initially had fevers and fatigue as her symptoms. That resolved and she had a lingering cough. She returned to work approximately 2 weeks later and noticed significant dyspnea on exertion especially with going up stairs and worsening cough. She presented to our ER on 08/18 and had a work-up to include CT angiogram of the chest which was negative, laboratory work-up which was normal, and she was not hypoxic at that time. She was discharged home and had been given albuterol HFA by her PCP. She continued to have significant dyspnea on exertion and presented herself to the [facility] the next day on 08/19 and was admitted for shortness of breath, and was noted to have an elevated lactate and elevated WBC count. She reports they treated her with IV antibiotics for presumed bacterial pneumonia although reports that she had a CT of the chest without contrast that was negative. She improved enough with her laboratory values that they discharged her home on p.o. doxycycline and p.o. dexamethasone. They did not do a two-step walk test before she went home and she reports that she continued to feel short of breath especially with exertion with minimal ambulation at that time. Last night, her called EMS when he noted her to be rapidly breathing in her sleep. She reports she drank some alcohol last night to help her sleep although she no longer has alcohol use disorder. She reports that she got such poor sleep in the hospital the previous few days before that that she just wanted to try to fall asleep. Her alcohol level was positive in the ER, urine drug screen negative, leukocytosis of 15 which is likely from steroids, and chest x-ray was negative. She was noted to drop as low as 84% on room air with ambulation in the room and felt very symptomatic with this. She was altered a bit on arrival as per ER provider which was likely from alcohol use and a CT of the head was performed which was negative. When I saw her, she was mentating perfectly normally. Her main complaint is cough and dyspnea on exertion. She also has noticed hand and ankle swelling since being on the dexamethasone A D-dimer came back elevated 1100 and she is agreeable to repeat CT angiogram of the chest to rule out PE. She reports she has had her tubes tied, endometrial ablation, and has not had sexual activity in a year and could definitely not be . She will be admitted for Covid-19 with pneumonitis/bronchitis, and acute respiratory failure with hypoxia. Principal Diagnosis COVID-19 Pneumonitis, Acute respiratory failure with hypoxia, Acute encephalopathy, Volume overload Discharge Exam Constitutional WD/WN, vitals as above Eyes + anicteric sclerae; no conjunctival abnormality Neck trachea midline, no thyromegaly Respiratory normal respiratory effort and + cough; not tachypneic Auscultation: lungs clear to auscultation bilaterally Cardiovascular RRR, no murmur, no edema (No calf tenderness) Chest (Breasts) Chest: normal inspection of chest Gastrointestinal (Abdomen) normal bowel sounds, soft, nontender, no hepatosplenomegaly Musculoskeletal Extremities: extremities normal to inspection; no cyanosis and no clubbing Skin no rashes, warm and dry Neurologic moves all extremities and awake; no focal motor deficits Psychiatric A+Ox3, euthymic affect Lymphatic no lymphedema Discharge Data Allergies Allergy/AdvReac Type Severity Reaction Status Date / Time ampicillin Allergy Intermediate HIVES Verified 08/23/21 07:33 codeine Allergy Intermediate GI SYMPTOMS Verified 08/23/21 07:33 fentanyl Allergy Intermediate Hives Verified 08/23/21 07:33 meperidine Allergy Intermediate VEIN Verified 08/23/21 07:33 TURNED RED/PAINFUL morphine Allergy Intermediate Hives Verified 08/23/21 07:33 Penicillins Allergy Intermediate SICK TO Verified 08/23/21 07:33 STOMACH amoxicillin Allergy Mild rash Verified 08/23/21 07:33 clavulanic acid Allergy Mild rash Verified 08/23/21 07:33 Sulfa (Sulfonamide Allergy Unknown UNSURE Verified 08/23/21 07:33 Antibiotics) REACTION Opioids - Morphine Analogues Allergy Hives Verified 08/23/21 07:33 Opioids-Meperidine and Allergy Hives Verified 08/23/21 07:33 Related prednisone AdvReac Severe Tachycardia Verified 08/23/21 07:33 promethazine AdvReac Mild itching Verified 08/23/21 07:33 NARCOTIC Allergy Intermediate Hives Uncoded 08/23/21 07:33 METAL AdvReac Mild Rash Uncoded 08/23/21 07:33 Consultations 08/23/21 07:06 ED Decision to Admit Stat Procedures Performed ECHO Ordered Studies 08/23/21 03:48 CT head/brain wo con Urgent 08/23/21 08:30 CT angio chest PE protocol Stat Hospital Course (1) COVID-19: First diagnosed on 08/04/2021 and had fevers and fatigue, progressively worsening cough and dyspnea on exertion Admitted to [facility] from 08/19-08/21 for dyspnea and suspected sepsis from pneumonia-discharged on p.o. dexamethasone and doxycycline Here with acute respiratory failure with hypoxia secondary to COVID-19 pneumonitis and bronchitis Chest x-ray negative, CT angiogram chest due to elevated D-dimer and persistent hypoxia, prolonged illness and hospitalization put her at risk for VTE--> no PE but with bilat pleural effusions Procal and CRP both negative pro BNP mildly elevated at 105 Troponin negative, ECG without ischemic changes, does have a history of aortic valve and aortic repair for supravalvular aortic stenosis in childhood Now with mildly elevated transaminases Leukocytosis secondary to corticosteroid use Requiring 2 L nasal cannula with exertion and with sleep on arrival ECHO with preserved EF, mild-mod AI, and pro BNP 105 (slightly elevated) Was admitted and treated with IV Decadron, IV lasix, and continued on doxycycline po for bronchitis CXR repeated on day of discharge and small pleural effusions improved, still with some bibasilar atelectasis Still with some cough but weaned completely off O2 on two step walk test on day of discharge -Continue dexamethasone 6 mg po once daily to finish out 10 day course on discharge -No role for Remdesivir or baricitinib -gave Rx for nebulizer and albuterol at home use -finish out doxy po course just in case of bacterial bronchitis -cont incentive spirometry and flutter valve at home -Tylenol as needed for any myalgias -can take lasix 20mg po daily prn swelling -gave Rx for Tessalon perles prn cough at home (2) Hypoxia: As above, resolved (3) Altered mental status: Was noted to be altered on arrival in the ER likely secondary to acute alcohol intoxication and hypoxia from COVID CT head negative With Covid as above but not likely contributing Now completely resolved -[place] level low-do not suspect lithium toxicity (4) Urticaria: Has a history of such, follows with allergy Continue Zyrtec 10 mg daily (5) Depression: Continue home lithium, duloxetine Continue lorazepam at night as needed (6) History of open heart surgery: Had aortic valve repair and aorta age [address] Sanchez of [facility] cardiology No acute issues at this time continue metoprolol (7) Sinus tachycardia: Has a history of such along with palpitations Not currently in sinus tachycardia -Continue metoprolol 50 mg p.o. twice daily (8) Aortic regurgitation: mild-mod on ECHO DVT prophylaxis-Lovenox 40 mg SQ twice daily Disposition-dc to home Full code Total Time Total Time Spent Total Time Spent (In Minutes): 45 min Discharge Plan Discharge Items Patient Disposition: Home - Self-Care Reason For Visit: COVID-19,HYPOXIA Discharge Diagnosis: COVID-19, Hypoxia, Volume overload Condition on Discharge: Fair Activity: As commented below Lifting: Gradually increase as tolerated Bathing: No limitations Exercise/Sports: Gradually increase as tolerated Driving/Machine Use: No limitations Non-emergency contact: Primary Care Provider Call non-emergency contact if: you have any medication questions, your symptoms worsen and you have a fever Follow-up/Referrals: Lexy Mccoy CRNP [Primary Care Provider] - (Follow up within 1-2 weeks) Diet: Regular Addtl Attending Provider Instructions: You were admitted with worsening shortness of breath and low oxygen levels from COVID-19. You were found to have some fluid around the bases of your lungs and were treated with lasix as a diuretic. You were continued on the dexamethasone steroid and doxycycline as an antibiotic for bronchitis. Initially you were on supplemental oxygen, but were able to be weaned off this on the day of discharge. Please finish out the course of dexamethasone and doxycycline you have at home. You can take Tessalon perles as needed for cough, and use the albuterol inhaler or nebulizer as needed for cough or shortness of breath. You will be given a few doses of lasix as a water pill to take as needed for hand or ankle swelling. Please continue to walk around as much as possible to prevent blood clots in your legs. If you develop worsening shortness of breath, chest pains, leg swelling or pain, or any other acute concern, please return to the hospital right away. You should remain out of work for one more week. Please follow up with your PCP within 1 week. Pending Studies at Discharge: No Stand-Alone Forms: My [facility], Work/School Release Medications and DC Order Prescriptions: New polyethylene glycol 3350 [Miralax] 17 gram Powder In Packet 17 g PO DAILY Qty: 30 RF: 0 benzonatate 200 mg capsule 200 mg PO TID PRN (Reason: cough) Qty: 20 RF: 0 furosemide [Lasix] 20 mg tablet 20 mg PO DAILY PRN (Reason: swelling) Qty: 5 RF: 0 albuterol sulfate 2.5 mg /3 mL (0.083 %) solution for nebulization 1.25 mg inhalation Q6H PRN (Reason: shortness of breath or cough) Qty: 90 RF: 0 Continued albuterol sulfate 90 mcg/actuation HFA aerosol inhaler 2 puff inhalation Q6H PRN (Reason: shortness of breath or wheezing) Qty: 8.5 RF: 0 duloxetine 60 mg capsule,delayed release(DR/EC) 60 mg PO QAM RF: 0 metoprolol tartrate 50 mg tablet 50 mg PO BID RF: 0 doxycycline hyclate 100 mg capsule 100 mg PO BID RF: 0 cetirizine [Zyrtec] 10 mg Tablet 10 mg PO QAM RF: 0 lithium carbonate 450 mg tablet extended release 450 mg PO HS RF: 0 lorazepam 1 mg tablet 1 mg PO HS PRN (Reason: Anxiety) RF: 0 duloxetine 30 mg capsule,delayed release(DR/EC) 30 mg PO HS RF: 0 Changed dexamethasone 6 mg tablet 6 mg PO DAILY Qty: 0 RF: 0 Discharge Orders: Discharge Order (Routine); Ordered 08/25/21 Ordered By: Maty Granados Admission Data Admit Date/Time: 08/23/21 08:38 Attending Provider: Maty Granados Admit Provider: Maty Granados Primary Care Provider: Lexy Mccoy Other Providers: Maty Granados ; Jadiel Arroyo Coding Level of Care Code D/C DAY MANAGEMENT >30 MINS Diagnoses COVID-19 U07.1 Hypoxia R09.02 Altered mental status R41.82 Altered mental status type: unspecified Urticaria L50.9 Depression F33.2 Active/Remission status: currently active Depression Type: major depressive disorder Major depression episode severity: severe Major depression recurrence: recurrent Psychotic features: without psychotic features History of open heart surgery Z98.890 Sinus tachycardia R00.0 Aortic regurgitation I35.1
[2021-08-25 15:16] VITALS: BP 126/59
[2021-08-25 15:41] VITALS: PULSE 84
== END 2021-08-25 18:02 | disposition home or self-care (01) | DRG 177 ==
LOC: ED 03:17 → EDINP 08:38 → 2S 16:00

== ENCOUNTER 2021-09-22 23:12 | Observation (INO) ==
[2021-09-22] MEDS ORDERED: ONDANSETRON INJ 2 MG/ML 2 ML VIAL IV STA (23:23)
[2021-09-22] MEDS ORDERED: dexAMETHasone**PF** 10 MG/ML VIAL IV ONE (23:23)
[2021-09-22] MEDS ORDERED: SODIUM CHLORIDE 0.9% 1000ML 1,000 ML IV SCH (23:30)
--- NOTE | 2021-09-22 23:35 | Emergency Department Note ---
History of Present Illness General Chief complaint: Respiratory Problems Stated complaint: HERE A COUPLE DAYS AGO, HARD TIME BREATHING Time Seen by Provider: 09/22/21 23:19 History of Present Illness Maximum Pain Intensity: 7 This is a 41-year-old female presenting to the emergency department for evaluation of worsening shortness of breath over the past 1 to 2 hours. Patient was POSITIVE for COVID-19 last month and was admitted to the facility for a few days. She is not vaccinated. The patient has a home pulse oximeter, and woke up this evening very short of breath. She states that her pulse ox was between 89 and 94% at home. She has been following with her primary care physician for similar symptoms, and did have blood work last week that did show an elevated white blood cell count of 27,000. This was felt to be related to steroid usage that she was taking after her Covid diagnosis. The patient has not had fevers or chills. She does have a cough, and states the cough is worse than when she was diagnosed with Covid. She rates her current discomfort a 7/10. Home Medications Medication Instructions Recorded Confirmed Type duloxetine 60 mg capsule,delayed 60 mg PO QAM cap 08/10/20 09/23/21 History release metoprolol tartrate 50 mg tablet 50 mg PO BID tab 04/12/21 09/23/21 History albuterol sulfate 90 mcg/actuation 2 puff INHALATION Q6H PRN #8.5 g 08/18/21 09/23/21 Rx aerosol inhaler cetirizine 10 mg tablet (Zyrtec) 10 mg PO QAM 08/23/21 09/23/21 History duloxetine 30 mg capsule,delayed 30 mg PO HS 08/23/21 09/23/21 History release lithium carbonate 450 mg 450 mg PO HS 08/23/21 09/23/21 History tablet,extended release lorazepam 1 mg tablet 1 mg PO HS PRN 08/23/21 09/23/21 History albuterol sulfate 1.25 mg INHALATION Q6H PRN #90 ml 08/25/21 09/23/21 Rx benzonatate 200 mg capsule 200 mg PO TID PRN #20 cap 08/25/21 09/23/21 Rx furosemide 20 mg tablet (Lasix) 20 mg PO DAILY PRN #5 tab 08/25/21 09/23/21 Rx polyethylene glycol 3350 17 gram 17 g PO DAILY #30 ea 08/25/21 09/23/21 Rx oral powder packet (Miralax) omeprazole 40 mg capsule,delayed 40 mg PO DAILY #30 cap 09/15/21 09/23/21 Rx release Allergies Allergy/AdvReac Type Severity Reaction Status Date / Time ampicillin Allergy Intermediate HIVES Verified 09/23/21 00:05 codeine Allergy Intermediate GI SYMPTOMS Verified 09/23/21 00:05 fentanyl Allergy Intermediate Hives Verified 09/23/21 00:05 meperidine Allergy Intermediate VEIN Verified 09/23/21 00:05 TURNED RED/PAINFUL morphine Allergy Intermediate Hives Verified 09/23/21 00:05 Opioids - Morphine Analogues Allergy Intermediate Hives Verified 09/23/21 00:05 Opioids-Meperidine and Allergy Intermediate Hives Verified 09/23/21 00:05 Related Penicillins Allergy Intermediate SICK TO Verified 09/23/21 00:05 STOMACH amoxicillin Allergy Mild rash Verified 09/23/21 00:05 clavulanic acid Allergy Mild rash Verified 09/23/21 00:05 Sulfa (Sulfonamide Allergy Unknown UNSURE Verified 09/23/21 00:05 Antibiotics) REACTION prednisone AdvReac Severe Tachycardia Verified 09/23/21 00:05 promethazine AdvReac Mild itching Verified 09/23/21 00:05 NARCOTIC Allergy Intermediate Hives Uncoded 09/23/21 00:05 METAL AdvReac Mild Rash Uncoded 09/23/21 00:05 Past Med/Surg History Medical History (Updated 09/23/21 @ 05:14 by Ben Green PA-C) Alcohol overdose Anemia Anxiety Aortic regurgitation Aortic stenosis Blood clot in vein SUPERFICIAL IN ARM S/P IV START Calculus of kidney Cervical radiculopathy Chronic constipation Classic migraine with aura Closed head injury Congenital heart disease in adult Degenerative disc disease BULGING DISCS Depression Fibromyalgia Gastritis HX OF H. pylori infection IN THE PAST Internal hemorrhoid, bleeding Lumbago Migraine Osteoarthritis Paresthesias Post traumatic stress disorder Pyrosis Rectal bleeding Restless leg syndrome Sialoadenitis of submandibular gland Sinus tachycardia Spinal stenosis Sudden onset of severe headache Suicide attempt Tobacco use disorder Vision disturbance Surgical History Family history of reaction to anesthesia BROTHER SLOW TO WAKE UP H/O aortic valve repair AT AGE 5 [facility] 1985 H/O eye surgery H/O hand surgery LEFT INDEX FINGER TENDON REPAIR S/T CUT H/O laparoscopy ENDOMETRIOSIS History of breast biopsy BENIGN History of cardiac cath AT 17MONTHS AND AGE 5 History of colonoscopy History of dilatation and curettage History of esophagogastroduodenoscopy (EGD) Hx of tonsillectomy (09/22/12) Nausea and vomiting after administration of anesthetic agent Family History Mother Family history of diabetes mellitus Diabetes Grandmother (Maternal) Family history of diabetes mellitus Heart disease Aunt Breast cancer Ovarian cancer Uncle Myocardial infarction Sister Cancer Denies family history of Prostate cancer Colorectal cancer Social History Smoking Status: Former smoker Tobacco Type: Cigarettes packs per day: 0.5; Years Smoked: 20; Second Hand Exposure: Yes (RARE); Hx Alcohol Use: Yes Alcohol type: beer Alcohol Intake Frequency: Monthly or Less Hx Substance Use: No Preferred Language: Sudanese Communication Ability: Effective Visual Impairment: No Limitations Hearing Ability: Normal Kiln Tender Required: No Beliefs That Will Affect Care: None marital status: Current Living Situation: Spouse current occupational status: employed 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 How many Children do You have: 1 Feels Safe at Home: Yes Physical Activity Frequency: 5-6 Times per Week Seatbelt Use: always Assistive Devices: None Review of Systems A total of 10 systems reviewed and were otherwise negative Physical Exam Vital Signs Vital Signs - 24 hr 09/22/21 23:15 09/22/21 23:48 09/22/21 23:49 Temperature 37.3 C Temperature Source Temporal Artery Scan Pulse Rate 100 H Pulse Rate [Right Finger] 93 H Respiratory Rate 24 20 Respiratory Effort / Characteristics Respiratory Depth Blood Pressure 119/70 Blood Pressure [Right Arm] 106/69 Blood Pressure Mean 86 Blood Pressure Mean [Right Arm] 81 Blood Pressure Position [Right Arm] Pulse Oximetry 92 96 94 Oxygen Delivery Method Room Air Room Air Room Air Sepsis Recent Fever Within 48 Hours No Sepsis New/Unexplained Change in Mental Status N/A Sepsis Action Taken by Nursing No Action Required 09/23/21 01:07 09/23/21 02:30 09/23/21 04:02 Temperature Temperature Source Pulse Rate Pulse Rate [Right Finger] 101 H 88 81 Respiratory Rate 19 16 18 Respiratory Effort / Characteristics Non-Labored Respiratory Depth Normal Blood Pressure Blood Pressure [Right Arm] 137/59 L 99/46 L Blood Pressure Mean Blood Pressure Mean [Right Arm] 85 63 Blood Pressure Position [Right Arm] Lying Pulse Oximetry 92 94 94 Oxygen Delivery Method Room Air Room Air Room Air Sepsis Recent Fever Within 48 Hours Sepsis New/Unexplained Change in Mental Status Sepsis Action Taken by Nursing VITALS: Vitals are noted on the nurse's note and reviewed by myself. Vital signs stable. GENERAL: Mildly ill-appearing white female who is with persistent dry cough on examination HEAD: Normocephalic atraumatic. NECK: Supple without nuchal rigidity. No lymphadenopathy. No thyromegaly. Cervical spine is nontender. HEART: Regular rate and rhythm without murmurs gallops or rubs. LUNGS: Clear to auscultation bilaterally without wheezes, rales or rhonchi. No retractions or accessory muscle use. ABDOMEN: Positive normal bowel sounds x 4. Soft, nontender, without masses or organomegaly. No guarding or rebound tenderness. MUSCULOSKELETAL: No muscle atrophy, erythema, or edema noted. Full range of motion in all extremities. Course Administered Medications Discontinued Medications Dexamethasone Sodium Phosphate (DexamethasonePf 10 Mg/Ml Vial) 10 mg IV NOW ONE Stop: 09/22/21 23:24 Last Admin: 09/22/21 23:50 Dose: 10 mg Documented by: [id number] Sodium Chloride (Nss 1000ml) 1,000 mls @ 999 mls/hr IV .Q1H1M KATIE Stop: 09/23/21 00:30 Last Infusion: 09/23/21 00:37 Dose: 0 mls/hr Documented by: [id number] Admin: 09/22/21 23:50 Dose: 999 mls/hr Documented by: [id number] Ioversol (Optiray 320 125ml) 125 ml IV ONCE ONE Stop: 09/23/21 00:50 Last Admin: 09/23/21 00:49 Dose: 99 ml Documented by: [id number] Ondansetron HCl (Ondansetron Inj 2 Mg/Ml 2 Ml Vial) 4 mg IV NOW STA Stop: 09/22/21 23:24 Last Admin: 09/22/21 23:50 Dose: 4 mg Documented by: [id number] Medical Decision Making Differential Diagnosis Differential diagnosis includes, but is not limited to: Myocardial infarction, dysrhythmia, pericarditis, pneumothorax, aortic aneurysm/dissection, DVT/PE, anxiety, GERD, PUD, electrolyte imbalance, thyroid disorder, pneumonia, bronchitis, pancreatitis, and others Laboratory Data Result diagrams: 09/22/21 23:42 09/22/21 23:42 Lab Results 09/22/21 09/22/21 09/22/21 Range/Units 23:42 23:42 23:42 WBC 27.89 H (4.8-10.8) K/uL RBC 4.47 (4.2-5.4) M/uL Hgb 14.3 (12.0-16.0) g/dL Hct 41.7 (37-47) % MCV 93.3 (80-100) fL MCH 32.0 (25-34) pg MCHC 34.3 (32-36) g/dL RDW Std Deviation 47.7 H (36.4-46.3) fL RDW Coeff of Gianfranco 14.0 (11.5-14.5) % Plt Count 360 (130-400) K/uL MPV 10.3 (7.4-10.4) fL Immature Gran % (Auto) 0.3 % Neut % (Auto) 91.6 % Lymph % (Auto) 4.1 % Cole % (Auto) 3.4 % Eos % (Auto) 0.5 % Baso % (Auto) 0.1 % Neut # (Auto) 25.51 H (1.4-6.5) K/uL Lymph # (Auto) 1.15 L (1.2-3.4) K/uL Cole # (Auto) 0.96 H (0.11-0.59) K/uL Eos # (Auto) 0.15 (0-0.5) K/uL Baso # (Auto) 0.03 (0-0.2) K/uL Immature Gran # (Auto) 0.09 H (0.00-0.02) K/uL RBC Morphology Unremarkable ESR (0-20) mm/hr Sodium 136 (136-145) mmol/L Potassium 3.8 (3.5-5.1) mmol/L Chloride 105 (98-107) mmol/L Carbon Dioxide 21 (21-32) mmol/L Anion Gap 10 (3-11) BUN 10 (6-23) mg/dl Creatinine 0.64 (0.6-1.2) mg/dl Est Cr Clr Drug Dosing 113.6 ml/min Est GFR ( Amer) 129.4 ml/min Est GFR (Non-Af Amer) 111.6 ml/min BUN/Creatinine Ratio 15.6 (10-20) Glucose 125 H (70-99(Fasting)) mg/dl Lactate (0.4-2.0) mmol/L Calcium 8.4 L (8.5-10.1) mg/dl Total Bilirubin 0.6 (0.2-1.0) mg/dl AST 20 (13-39) U/L ALT 19 (7-52) U/L Alkaline Phosphatase 70 (34-104) U/L Troponin I < 0.03 (0-0.04) ng/ml C-Reactive Protein (0-0.5) mg/dl Total Protein 6.8 (6.0-8.3) gm/dl Albumin 4.1 (3.4-5.0) gm/dl Globulin 2.7 (2.5-4.0) gm/dl Albumin/Globulin Ratio 1.5 (0.9-2) Lipase 37 (11-82) U/L Procalcitonin (0-0.5) ng/ml SARS-CoV-2, RNA, NAAT NEGATIVE (NEGATIVE) 09/23/21 09/23/21 09/23/21 Range/Units 02:01 02:01 02:01 WBC (4.8-10.8) K/uL RBC (4.2-5.4) M/uL Hgb (12.0-16.0) g/dL Hct (37-47) % MCV (80-100) fL MCH (25-34) pg MCHC (32-36) g/dL RDW Std Deviation (36.4-46.3) fL RDW Coeff of Gianfranco (11.5-14.5) % Plt Count (130-400) K/uL MPV (7.4-10.4) fL Immature Gran % (Auto) % Neut % (Auto) % Lymph % (Auto) % Cole % (Auto) % Eos % (Auto) % Baso % (Auto) % Neut # (Auto) (1.4-6.5) K/uL Lymph # (Auto) (1.2-3.4) K/uL Cole # (Auto) (0.11-0.59) K/uL Eos # (Auto) (0-0.5) K/uL Baso # (Auto) (0-0.2) K/uL Immature Gran # (Auto) (0.00-0.02) K/uL RBC Morphology ESR 19 (0-20) mm/hr Sodium (136-145) mmol/L Potassium (3.5-5.1) mmol/L Chloride (98-107) mmol/L Carbon Dioxide (21-32) mmol/L Anion Gap (3-11) BUN (6-23) mg/dl Creatinine (0.6-1.2) mg/dl Est Cr Clr Drug Dosing ml/min Est GFR ( Amer) ml/min Est GFR (Non-Af Amer) ml/min BUN/Creatinine Ratio (10-20) Glucose (70-99(Fasting)) mg/dl Lactate 2.1 H* (0.4-2.0) mmol/L Calcium (8.5-10.1) mg/dl Total Bilirubin (0.2-1.0) mg/dl AST (13-39) U/L ALT (7-52) U/L Alkaline Phosphatase (34-104) U/L Troponin I (0-0.04) ng/ml C-Reactive Protein 0.71 H (0-0.5) mg/dl Total Protein (6.0-8.3) gm/dl Albumin (3.4-5.0) gm/dl Globulin (2.5-4.0) gm/dl Albumin/Globulin Ratio (0.9-2) Lipase (11-82) U/L Procalcitonin (0-0.5) ng/ml SARS-CoV-2, RNA, NAAT (NEGATIVE) 09/23/21 Range/Units 02:01 WBC (4.8-10.8) K/uL RBC (4.2-5.4) M/uL Hgb (12.0-16.0) g/dL Hct (37-47) % MCV (80-100) fL MCH (25-34) pg MCHC (32-36) g/dL RDW Std Deviation (36.4-46.3) fL RDW Coeff of Gianfranco (11.5-14.5) % Plt Count (130-400) K/uL MPV (7.4-10.4) fL Immature Gran % (Auto) % Neut % (Auto) % Lymph % (Auto) % Cole % (Auto) % Eos % (Auto) % Baso % (Auto) % Neut # (Auto) (1.4-6.5) K/uL Lymph # (Auto) (1.2-3.4) K/uL Cole # (Auto) (0.11-0.59) K/uL Eos # (Auto) (0-0.5) K/uL Baso # (Auto) (0-0.2) K/uL Immature Gran # (Auto) (0.00-0.02) K/uL RBC Morphology ESR (0-20) mm/hr Sodium (136-145) mmol/L Potassium (3.5-5.1) mmol/L Chloride (98-107) mmol/L Carbon Dioxide (21-32) mmol/L Anion Gap (3-11) BUN (6-23) mg/dl Creatinine (0.6-1.2) mg/dl Est Cr Clr Drug Dosing ml/min Est GFR ( Amer) ml/min Est GFR (Non-Af Amer) ml/min BUN/Creatinine Ratio (10-20) Glucose (70-99(Fasting)) mg/dl Lactate (0.4-2.0) mmol/L Calcium (8.5-10.1) mg/dl Total Bilirubin (0.2-1.0) mg/dl AST (13-39) U/L ALT (7-52) U/L Alkaline Phosphatase (34-104) U/L Troponin I (0-0.04) ng/ml C-Reactive Protein (0-0.5) mg/dl Total Protein (6.0-8.3) gm/dl Albumin (3.4-5.0) gm/dl Globulin (2.5-4.0) gm/dl Albumin/Globulin Ratio (0.9-2) Lipase (11-82) U/L Procalcitonin < 0.05 (0-0.5) ng/ml SARS-CoV-2, RNA, NAAT (NEGATIVE) Imaging Data Radiologist's Impression: Preliminary Findings Only See Final Report For Complete Findings CTA CHEST: The pulmonary arterial tree is well opacified with contrast. No pulmonary emboli are identified. The thoracic aorta is more like a firm and nondilated. There is no aneurysm or dissection. The heart is not enlarged. No pericardial effusion is seen. No mediastinal or axillary lymph adenopathy or mass is identified. The lungs are well-inflated with a trace amount of bibasilar subsegmental atelectasis. No acute appearing airspace infiltrate, pneumothorax, or pleural effusion is seen. Previous sternotomy. Skeletal structures are otherwise unremarkable. Limited images of the upper abdomen appear unremarkable.Radiologist:Manny Khan, [facility]:[phone] ECG Data Attestation: I personally reviewed and interpreted this ECG as follows: Indication: + SOB/dyspnea Additional Comments: Normal sinus rhythm @[address] elevation Normal ECG When compared with ECG of 23-AUG-2021 03:59, No significant change was found MDM Narrative Physical exam and history were performed. Nursing notes, EMR, and Medication List were personally reviewed. Patient appears to have shortness of breath bringing her to the emergency room this evening. She does have a recent history of COVID-19 infection, and does have a history of aortic valve repair. IV access was established and labs were obtained. The patient was hydrated with normal saline and given IV Decadron. She was sent to CT scan for PE study. An order was placed for continuous cardiac monitoring. The monitor shows a rate of 81 with normal sinus rhythm. The patient's blood work is as above and was reviewed. She does have an elevated white blood cell count of 27,000 with a neutrophil count of 25,000. She does not have a significant anemia or gross electrolyte imbalance. Transaminases are not diagnostic. Troponin x1 is negative. Covid was performed and negative. CT scan was reviewed by myself and radiology and does not show obvious acute findings explaining her symptoms. I did spend a significant amount of time reviewing the patient's records. She did have outpatient labs performed 8 days ago which also revealed a white blood cell count of 27,000. On her admission about a month ago she had a normal white count, but it seems to be increasing since that time. Out of concern for possible infection pancultures were ordered including blood, urine, and stool. The patient's lactic is slightly elevated at 2.1. I did reach out to the hospitalist team, Dr. Khan, who will evaluate the patient here in the ER for further care. The patient certainly could have infection causing her symptoms, or potentially a heme-onc etiology. The patient was updated regarding her findings today and reassured that at this time her cardiopulmonary evaluation was benign, however she still has concerning findings. Please see the hospitalist dictation for further patient course, plan, and disposition. The chart was completed utilizing [employer] Speech Voice Recognition Software. Grammatical errors, random word insertions, pronoun errors, and incomplete sentences are an occasional consequence of this system due to software limitations, ambient noise, and hardware issues. Any formal questions or concerns about the content, text, or information contained within the body of this dictation should be directly addressed to the provider for clarification. . Impression & Plan Shortness of breath, Elevated WBC count Discharge Plan Visit Data Chief Complaint: Respiratory Problems Stated Complaint: HERE A COUPLE DAYS AGO, HARD TIME BREATHING ED Provider: Jessica Gil ED Midlevel Provider: Ben Green Discharge Problem: Shortness of breath, Elevated WBC count Forms Stand Alone Forms: My [facility] Prescriptions Prescriptions: No Action albuterol sulfate 90 mcg/actuation HFA aerosol inhaler 2 puff inhalation Q6H PRN (Reason: shortness of breath or wheezing) Qty: 8.5 RF: 0 omeprazole 40 mg capsule,delayed release(DR/EC) 40 mg PO DAILY Qty: 30 RF: 2 duloxetine 60 mg capsule,delayed release(DR/EC) 60 mg PO QAM RF: 0 metoprolol tartrate 50 mg tablet 50 mg PO BID RF: 0 cetirizine [Zyrtec] 10 mg Tablet 10 mg PO QAM RF: 0 lithium carbonate 450 mg tablet extended release 450 mg PO HS RF: 0 lorazepam 1 mg tablet 1 mg PO HS PRN (Reason: Anxiety) RF: 0 duloxetine 30 mg capsule,delayed release(DR/EC) 30 mg PO HS RF: 0 polyethylene glycol 3350 [Miralax] 17 gram Powder In Packet 17 g PO DAILY Qty: 30 RF: 0 benzonatate 200 mg capsule 200 mg PO TID PRN (Reason: cough) Qty: 20 RF: 0 furosemide [Lasix] 20 mg tablet 20 mg PO DAILY PRN (Reason: swelling) Qty: 5 RF: 0 albuterol sulfate 2.5 mg /3 mL (0.083 %) solution for nebulization 1.25 mg inhalation Q6H PRN (Reason: shortness of breath or cough) Qty: 90 RF: 0 Referrals Referrals: Lexy Mccoy CRNP [Primary Care Provider] -
[2021-09-22 23:54] LABS: Hematocrit (blood only) 41.7 % (37-47); Hemoglobin 14.3 g/dL (12.0-16.0); Mean Corpuscular Hgb Conc 34.3 g/dL (32-36); Mean Corpuscular Volume 93.3 fL (80-100); Mean Platelet Volume 10.3 fL (7.4-10.4); Platelet Count 360 K/uL (130-400); RDW Standard Deviation 47.7 fL (36.4-46.3); Red Blood Count 4.47 M/uL (4.2-5.4); White Blood Count 27.89 K/uL (4.8-10.8)
[2021-09-23 00:12] LABS: Basophils # (auto) 0.03 K/uL (0-0.2); Basophils % (auto) 0.1 %; Eosinophils # (auto) 0.15 K/uL (0-0.5); Eosinophils % (auto) 0.5 %; Immature Granulocytes # (auto) 0.09 K/uL (0.00-0.02); Immature Granulocytes % (auto) 0.3 %; Lymphocytes # (auto) 1.15 K/uL (1.2-3.4); Lymphocytes % (auto) 4.1 %; Monocytes # (auto) 0.96 K/uL (0.11-0.59); Monocytes % (auto) 3.4 %; Neutrophils # (auto) 25.51 K/uL (1.4-6.5); Neutrophils % (auto) 91.6 %; RBC Morphology Unremarkable
[2021-09-23 00:18] LABS: Alanine Aminotransferase 19 U/L (7-52); Albumin Globulin Ratio 1.5 (0.9-2); Albumin Level 4.1 gm/dl (3.4-5.0); Alkaline Phosphatase 70 U/L (34-104); Anion Gap 10 (3-11); Aspartate Aminotransferase 20 U/L (13-39); BUN Creatinine Ratio 15.6 (10-20); Bilirubin,Total 0.6 mg/dl (0.2-1.0); Blood Urea Nitrogen 10 mg/dl (6-23); Calcium 8.4 mg/dl (8.5-10.1); Carbon Dioxide 21 mmol/L (21-32); Chloride 105 mmol/L (98-107); Creatinine Clr Calc Pharmacy 113.6 ml/min; Est GFR (African American) 129.4 ml/min; Est GFR (Non-African American) 111.6 ml/min; Globulin 2.7 gm/dl (2.5-4.0); Glucose 125 mg/dl (70-99(Fasting)); Lipase 37 U/L (11-82); Potassium 3.8 mmol/L (3.5-5.1); Sodium 136 mmol/L (136-145); Total Protein 6.8 gm/dl (6.0-8.3)
[2021-09-23 00:21] LABS: Troponin I < 0.03 ng/ml (0-0.04)
[2021-09-23] MEDS ORDERED: OPTIRAY 320 125ml IV ONE (00:49)
--- NOTE | 2021-09-23 03:43 | History & Physical Report ---
Date of Service September 23, 2021 Assessment & Plan (1) Dyspnea: Plan: Etiology unclear. CTA is unremarkable. Patient does not appear to be volume overloaded. Procalcitonin is negative. No wheezing. ?anxiety component? ?long covid with persistent dyspnea. She is not hypoxic here. Asleep on my arrival saturating 94% on room air. -Monitor oxygen with continuous pulse ox -Ambulatory saturation -Check BNP -Continue Albuterol as needed -Continue Benzonatate as needed -Lasix PRN (2) Leukocytosis: Plan: WBC=27.87 with neutrophil predominance. Has been consistently elevated since 08/23/21 (15.37 --> 19.45--> 27.33 --> 27.89). Mildly elevated monocytes and bands. Remainder of CBC is normal. Patient with vague complaints of fatigue, chronic night sweats and subjective fevers but these have been longstanding complaints. ?if leukocytosis is secondary to steroid use. She was on a course of Dexamethasone last month - reports her last dose of steroids was 08/24/21. She did receive a dose of Dexamethasone here in the ER Ddx to include steroid effects, new infection, malignancy -Check peripheral smear -Repeat CBC in AM -Consider Hematology consultation pending results of smear (3) Depression: Plan: Chronic -Continue Duloxetine -Continue Tribune -Continue Ativan PRN (4) Gastritis: Plan: Chronic -Continue Omeprazole Plan: F/E/N - Heplock. Check Mg and PO4 x 1, Regular diet as tolerated Ppx - Lovenox 40 Code - Full per discussion with patient Dispo - Admit to medical History of Present Illness Chief Complaint: SOB, leukocytosis Primary Care Provider: FABIANA Barone Lexy Munoz is a 41yo female with history of aortic valve replacement, chronic idiopathic urticaria, MDD presenting with SOB. Patient tested POSITIVE for Covid-19 on 08/04/21. She reports a lingering cough and persistent dyspnea on exertion after recovering. She was seen in the ER at [facility] on 08/18/21 with complaint os SOB - she had a normal CTA chest and unremarkable laboratory workup with no documented hypoxia therefore was discharged home. She then went to [facility] on 08/19/21 with ongoing PEREZ and was admitted. She was noted to have an elevated lactate and WBC count and was treated with IV antibiotics. She reports CT of the chest at that time was negative. She was discharged home on 08/21/21 on a course of PO doxycycline and dexamethasone. She returned to [facility] on 08/23/21 with complaint of dyspnea and rapid breathing noted by her . She had a WBC count of 15 and was hypoxic with ambulation to 84%. She had a CTA which was unremarkable. She was admitted for acute hypoxic respiratory failure thought to be secondary to Covid-19 pneumonitis and bronchitis. She had an extensive workup to include negative CXR, CTA without PE but with bilateral pleural effusions. Echo with preserved EF and mild to moderate AI. She was treated with IV Dexamethasone, Lasix and Doxycycline. She was weaned off O2 and had a successful two step walk test on the day of discharge. She was sent home on 08/25/21 with a prescription for Dexamethasone as well as nebulizer and albuterol, Lasix PRN. Patient returns today because of ongoing dyspnea at rest as well as with exertion. She woke from sleep tonight feeling short of breath. She has been overall feeling poorly with body aches and fatigue. Additionally she has been found to have persistently elevated leukocytosis. Additional complaints include cough, SOB, nausea, fatigue, joint pain, chronic night sweats and subjective fever, weight gain, constipation She denies chest pain, abdominal pain, diarrhea, dysuria, rash. No additional complaints ER Course: Dexamethasone 10mg IV, Zofran, NSS Allergies Allergy/AdvReac Type Severity Reaction Status Date / Time ampicillin Allergy Intermediate HIVES Verified 09/23/21 00:05 codeine Allergy Intermediate GI SYMPTOMS Verified 09/23/21 00:05 fentanyl Allergy Intermediate Hives Verified 09/23/21 00:05 meperidine Allergy Intermediate VEIN Verified 09/23/21 00:05 TURNED RED/PAINFUL morphine Allergy Intermediate Hives Verified 09/23/21 00:05 Opioids - Morphine Analogues Allergy Intermediate Hives Verified 09/23/21 00:05 Opioids-Meperidine and Allergy Intermediate Hives Verified 09/23/21 00:05 Related Penicillins Allergy Intermediate SICK TO Verified 09/23/21 00:05 STOMACH amoxicillin Allergy Mild rash Verified 09/23/21 00:05 clavulanic acid Allergy Mild rash Verified 09/23/21 00:05 Sulfa (Sulfonamide Allergy Unknown UNSURE Verified 09/23/21 00:05 Antibiotics) REACTION prednisone AdvReac Severe Tachycardia Verified 09/23/21 00:05 promethazine AdvReac Mild itching Verified 09/23/21 00:05 NARCOTIC Allergy Intermediate Hives Uncoded 09/23/21 00:05 METAL AdvReac Mild Rash Uncoded 09/23/21 00:05 Home Medications Medication Instructions Recorded Confirmed Type duloxetine 60 mg capsule,delayed 60 mg PO QAM cap 08/10/20 09/23/21 History release metoprolol tartrate 50 mg tablet 50 mg PO BID tab 04/12/21 09/23/21 History albuterol sulfate 90 mcg/actuation 2 puff INHALATION Q6H PRN #8.5 g 08/18/21 09/23/21 Rx aerosol inhaler cetirizine 10 mg tablet (Zyrtec) 10 mg PO QAM 08/23/21 09/23/21 History duloxetine 30 mg capsule,delayed 30 mg PO HS 08/23/21 09/23/21 History release lithium carbonate 450 mg 450 mg PO HS 08/23/21 09/23/21 History tablet,extended release lorazepam 1 mg tablet 1 mg PO HS PRN 08/23/21 09/23/21 History albuterol sulfate 1.25 mg INHALATION Q6H PRN #90 ml 08/25/21 09/23/21 Rx benzonatate 200 mg capsule 200 mg PO TID PRN #20 cap 08/25/21 09/23/21 Rx furosemide 20 mg tablet (Lasix) 20 mg PO DAILY PRN #5 tab 08/25/21 09/23/21 Rx polyethylene glycol 3350 17 gram 17 g PO DAILY #30 ea 08/25/21 09/23/21 Rx oral powder packet (Miralax) omeprazole 40 mg capsule,delayed 40 mg PO DAILY #30 cap 09/15/21 09/23/21 Rx release Past Med/Surg History Medical History (Updated 09/23/21 @ 04:04 by Livia Khan DO) Alcohol overdose Anemia Anxiety Aortic regurgitation Aortic stenosis Blood clot in vein SUPERFICIAL IN ARM S/P IV START Calculus of kidney Cervical radiculopathy Chronic constipation Classic migraine with aura Closed head injury Congenital heart disease in adult Degenerative disc disease BULGING DISCS Depression Fibromyalgia Gastritis HX OF H. pylori infection IN THE PAST Internal hemorrhoid, bleeding Lumbago Migraine Osteoarthritis Paresthesias Post traumatic stress disorder Pyrosis Rectal bleeding Restless leg syndrome Sialoadenitis of submandibular gland Sinus tachycardia Spinal stenosis Sudden onset of severe headache Suicide attempt Tobacco use disorder Vision disturbance Surgical History Family history of reaction to anesthesia BROTHER SLOW TO WAKE UP H/O aortic valve repair AT AGE 5 [facility] 1984 H/O eye surgery H/O hand surgery LEFT INDEX FINGER TENDON REPAIR S/T CUT H/O laparoscopy ENDOMETRIOSIS History of breast biopsy BENIGN History of cardiac cath AT 17MONTHS AND AGE 5 History of colonoscopy History of dilatation and curettage History of esophagogastroduodenoscopy (EGD) Hx of tonsillectomy (09/22/12) Nausea and vomiting after administration of anesthetic agent Family History Mother Family history of diabetes mellitus Diabetes Grandmother (Maternal) Family history of diabetes mellitus Heart disease Aunt Breast cancer Ovarian cancer Uncle Myocardial infarction Sister Cancer Denies family history of Prostate cancer Colorectal cancer Social History Smoking Status: Former smoker Tobacco Type: Cigarettes packs per day: 0.5; Years Smoked: 20; Second Hand Exposure: Yes (RARE); Hx Alcohol Use: Yes Alcohol type: beer Alcohol Intake Frequency: Monthly or Less Hx Substance Use: No Preferred Language: Wolof Communication Ability: Effective Visual Impairment: No Limitations Hearing Ability: Normal Patient Admitting Representative Required: No Beliefs That Will Affect Care: None marital status: Current Living Situation: Spouse current occupational status: employed 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 How many Children do You have: 1 Feels Safe at Home: Yes Physical Activity Frequency: 5-6 Times per Week Seatbelt Use: always Assistive Devices: None Review of Systems Review of Systems: All systems reviewed & are unremarkable except as noted in HPI & below Physical Exam Physical Exam: General: patient resting comfortably, NAD, non-toxic in appearance, AA&O x 4 Skin: warm, dry, intact, no rashes or lesions HEENT: NC/AT, PERRL, EOMI, anicteric sclera, conjunctiva without injection, external ear normal to inspection and nontender, nares patent, moist mucus membranes, dentition intact, no oropharyngeal lesions, neck supple, trachea midline, no LAD, no thyromegaly, no JVD Heart: +S1/S2, regular, no m/r/g, sternotomy scar Lungs: equal air entry bilaterally, fine end-inspiratory crackles noted in right lung base Abd: +BS, soft, NT/ND, no masses/organomegaly/ascites Ext: warm, 2+ pulses in UE/LE bilaterally, no clubbing/cyanosis or edema Neuro: nonfocal, patient AA&O x 4, speech intact, no facial droop, moving all extremities on command with equal strength 5/5 Results & Data Results & Data ([facility]) Vital Signs (Past 12 Hours) Vital Signs Temp Pulse Pulse Resp BP BP Pulse Ox 09/23/21 02:30 88 16 137/59 L 94 09/23/21 01:07 101 H 19 92 09/22/21 23:49 93 H 20 106/69 94 09/22/21 23:48 96 09/22/21 23:15 37.3 C 100 H 24 119/70 92 Laboratory Results Laboratory Results WBC 27.89 K/uL (4.8-10.8) H 09/22/21 23:42 RBC 4.47 M/uL (4.2-5.4) 09/22/21 23:42 Hgb 14.3 g/dL (12.0-16.0) 09/22/21 23:42 Hct 41.7 % (37-47) 09/22/21 23:42 MCV 93.3 fL (80-100) 09/22/21 23:42 MCH 32.0 pg (25-34) 09/22/21 23:42 MCHC 34.3 g/dL (32-36) 09/22/21 23:42 RDW Std Deviation 47.7 fL (36.4-46.3) H 09/22/21 23:42 RDW Coeff of Gianfranco 14.0 % (11.5-14.5) 09/22/21 23:42 Plt Count 360 K/uL (130-400) 09/22/21 23:42 MPV 10.3 fL (7.4-10.4) 09/22/21 23:42 Immature Gran % (Auto) 0.3 % 09/22/21 23:42 Neut % (Auto) 91.6 % 09/22/21 23:42 Lymph % (Auto) 4.1 % 09/22/21 23:42 Delta % (Auto) 3.4 % 09/22/21 23:42 Eos % (Auto) 0.5 % 09/22/21 23:42 Baso % (Auto) 0.1 % 09/22/21 23:42 Neut # (Auto) 25.51 K/uL (1.4-6.5) H 09/22/21 23:42 Lymph # (Auto) 1.15 K/uL (1.2-3.4) L 09/22/21 23:42 Delta # (Auto) 0.96 K/uL (0.11-0.59) H 09/22/21 23:42 Eos # (Auto) 0.15 K/uL (0-0.5) 09/22/21 23:42 Baso # (Auto) 0.03 K/uL (0-0.2) 09/22/21 23:42 Immature Gran # (Auto) 0.09 K/uL (0.00-0.02) H 09/22/21 23:42 RBC Morphology Unremarkable 09/22/21 23:42 ESR 19 mm/hr (0-20) 09/23/21 02:01 Sodium 136 mmol/L (136-145) 09/22/21 23:42 Potassium 3.8 mmol/L (3.5-5.1) 09/22/21 23:42 Chloride 105 mmol/L (98-107) 09/22/21 23:42 Carbon Dioxide 21 mmol/L (21-32) 09/22/21 23:42 Anion Gap 10 (3-11) 09/22/21 23:42 BUN 10 mg/dl (6-23) 09/22/21 23:42 Creatinine 0.64 mg/dl (0.6-1.2) 09/22/21 23:42 Est Cr Clr Drug Dosing 113.6 ml/min 09/22/21 23:42 Est GFR ( Amer) 129.4 ml/min 09/22/21 23:42 Est GFR (Non-Af Amer) 111.6 ml/min 09/22/21 23:42 BUN/Creatinine Ratio 15.6 (10-20) 09/22/21 23:42 Glucose 125 mg/dl (70-99(Fasting)) H 09/22/21 23:42 Lactate 2.1 mmol/L (0.4-2.0) H* 09/23/21 02:01 Calcium 8.4 mg/dl (8.5-10.1) L 09/22/21 23:42 Total Bilirubin 0.6 mg/dl (0.2-1.0) 09/22/21 23:42 AST 20 U/L (13-39) 09/22/21 23:42 ALT 19 U/L (7-52) 09/22/21 23:42 Alkaline Phosphatase 70 U/L (34-104) 09/22/21 23:42 Troponin I < 0.03 ng/ml (0-0.04) 09/22/21 23:42 C-Reactive Protein 0.71 mg/dl (0-0.5) H 09/23/21 02:01 Total Protein 6.8 gm/dl (6.0-8.3) 09/22/21 23:42 Albumin 4.1 gm/dl (3.4-5.0) 09/22/21 23:42 Globulin 2.7 gm/dl (2.5-4.0) 09/22/21 23:42 Albumin/Globulin Ratio 1.5 (0.9-2) 09/22/21 23:42 Lipase 37 U/L (11-82) 09/22/21 23:42 Procalcitonin < 0.05 ng/ml (0-0.5) 09/23/21 02:01 SARS-CoV-2, RNA, NAAT NEGATIVE (NEGATIVE) 09/22/21 23:42 Diagnostic Findings CTA Chest - per STAT rad - pulmonary arterial tree is well opacified with contrast. No PE are identified. The thoracic aorta is ...nondilated. There is no aneurysm or dissection. The heart is not enlarged, No pericardial effusion is seen. No mediastinal or axillary LAD or mass is identified. The lungs are well inflated with a trace amount of bibasilar subsegmental atelectasis. No acute appearing airspace infiltrate, PTX or pleural effusion is seen. Previous sternotomy. Skeletal structures are otherwise unremarkable. ECG Additional Comments: EKG with NSR, no acute ischemic changes, Code Status & VTE Plan VTE Prophylaxis Plan VTE Prophylaxis will be ordered: Yes PG Care Time/CCT Total # of Minutes Spent Total Time Spent with Patient: Total time spent is greater than 50% in coordination of care (as documented) at patient's floor/unit and/or counseling patient: Coding Level of Care Code 11400 Initial Inpt Care Lvl 2 Diagnoses Dyspnea R06.00 Dyspnea type: unspecified Depression F32.9 Gastritis K29.70 Leukocytosis D72.829 (1) Dyspnea Dyspnea type: unspecified Qualified Code(s): R06.00 - Dyspnea, unspecified
[2021-09-23] MEDS ORDERED: LORazepam 1 MG TAB PO PRN (06:29)
[2021-09-23] MEDS ORDERED: ACETAMINOPHEN 325 MG TAB PO PRN (06:29)
[2021-09-23] MEDS ORDERED: BENZONATATE 100 MG CAPSULE PO PRN (06:29)
[2021-09-23] MEDS ORDERED: ALBUTEROL HFA 8 GM INHALER INH PRN (06:29)
[2021-09-23] MEDS ORDERED: FUROSEMIDE 20 MG TAB PO PRN (06:29)
[2021-09-23 07:23] LABS: White Blood Count 38.73 K/uL (4.8-10.8)
--- NOTE | 2021-09-23 07:34 | CT Scan Report ---
CT ANGIOGRAM OF THE CHEST CLINICAL HISTORY: Chest tightness. Covid. Dyspnea. Generalized weakness. COMPARISON STUDY: Chest CT dated 08/23/2021. Chest x-ray dated 09/15/2021. TECHNIQUE: Following the IV administration of 99 cc of Optiray 320, CT angiogram of the chest was per formed from the upper abdomen to the thoracic inlet utilizing the pulmonary embolus protocol. Images are reviewed in the axial, sagittal, and coronal planes. 3-D MIPS images are created and assessed. IV contrast was administered without complication. A dose lowering technique was utilized adhering to the principles of ALARA. CT DOSE: 265.89 mGy.cm FINDINGS: Thyroid: Mildly enlarged and heterogeneous. Thoracic aorta: The thoracic aorta is normal in caliber and demonstrates standard 3-vessel arch anato my. No dissection is seen. Pulmonary vasculature: The pulmonary trunk is normal in caliber. There are no filling defects identif ied in main, lobar, or segmental pulmonary branches to suggest pulmonary embolus. Heart: Midline sternotomy wires are noted. The heart is mildly enlarged and without pericardial effus ion. Lungs and pleural spaces: Evaluation of the lung parenchyma is degraded by motion artifact. There is no airspace consolidation typical for pneumonia or pleural effusion. Diffuse intralobular septal thic kening is observed. The trachea and central airways are clear. Dependent atelectasis is observed. Mediastinum: Mildly enlarged mediastinal nodes measure up to 10 mm in short axis. Georgie: Mildly enlarged hilar nodes measure up to 13 mm in short axis. Axillae: There is no axillary lymphadenopathy. Upper abdomen: There is a tiny hiatal hernia. Esophageal varices are noted. Skeletal structures: No lytic or blastic bony lesions are seen. IMPRESSION: 1. There is no evidence of pulmonary embolus in the main, lobar, or segmental pulmonary arteries. 2. Mild cardiac enlargement. Intralobular septal thickening suggests congestive failure and clinical correlation will be required. 3. There is no airspace consolidation typical for pneumonia or pleural effusion. 4. Esophageal varices are noted. 5. Mildly enlarged mediastinal and hilar lymph nodes are nonspecific and similar to previous. ACT 112: Negative or not required by law. Electronically signed by: Checo Valverde M.D. 09/23/2021 7:33 AM
[2021-09-23 07:42] LABS: Magnesium 1.7 mg/dl (1.7-2.4); Phosphorus 1.9 mg/dl (2.5-4.9)
--- NOTE | 2021-09-23 08:07 | Medical Student Progress Note ---
Date of Service September 23, 2021 Assessment & Plan (1) Shortness of breath: Plan: Lexy is a 41 year old female with a history of aortic valve repair and recent hospitalization for COVID who presents for evaluation of dyspnea, which has improved, and a significant leukocytosis. Leukocytosis with neutrophilic predominance - WBC, specifically neutrophil count, has been consistently and progressively elevating since last hospitalization to 38.73 (neut 25.51) on 09/23 - infectious vs. recent steroid usage vs. potential neoplastic process * infection seems less likely in setting of stable vitals and lack of infectious symptoms; steroid usage less likely as her last dose of steroids was 1 month ago (08/24) - peripheral smear showed absolute neutrophilia, all blood cells morphologically unremarkable, no blasts or schistocytes, recommend hematology consult - hematology consulted - qAM CBC Dyspnea, improving - per patient, improving; patient has not been hypoxic in hospital - bacterial/viral PNA vs. PE vs. fluid overload vs. endocarditis * PNA: afebrile, lungs clear, no cough, procal neg, ESR neg, lactate elevated 2.1, CRP elevated 0.71 * PE: CTA negative, no risk factors of hypercoagulability * Fluid overload: no symptoms, no edema, lungs clear, BNP 150, CTA showed cardiac enlargement suggestive of congestive failure, echo from 08/23 showed preserved EF * Endocarditis: history of aortic valve repair, no cardiac symptoms, vss - less concern for infection in setting of negative procal, afebrile - Blood cultures pending, consider echo if cultures positive - Continue home albuterol, benzonatate, lasix prn Hypophosphatemia - Phosphate 1.9 - repleted - recheck in AM Chronic Conditions: Depression and Bipolar Disorder: continue ativan PRN, home duloxetine, lithium Chronic Gastritis: continue home omeprazole History of Tachycardia/Palpitations: continue home metoprolol FEN/GI: regular diet, home omeprazole DVT Prophylaxis: Lovenox Code status: Full code Dispo: med/surg (2) Leukocytosis: (3) History of COVID-19: (4) Dyspnea: Dyspnea type: unspecified Qualified Code(s): R06.00 - Dyspnea, unspecified Admission and Anticipated Discharge Date Admission Date: September 23, 2021 Supervising Attestation Patient seen and examined with student doctor Santiago. Agree with history, exam findings, assessment and plan of care as outlined. In brief, Lexy is a 41 year old female with history of prior aortic valve repair (hx of congenital valve anomaly), depression and recent COVID admitted with dyspnea. Has been experiencing flu-like symptoms for the last 2 weeks. Has noticed some inguinal lymph nodes that become enlarged and will pop out. Has had prior ultrasound of these nodes and was told everything looked normal. There are several maternal family members with lymphoma or other cancers. VS and nursing notes reviewed. Well appearing, non-toxic. No cervical, supraclavicular lymphadenopathy. Palpable right inguinal lymph node, but this is nontender and mobile. No able to appreciate a palpable inguinal lymph node on the left. Heart with regular rate and rhythm. Lungs are clear to auscultation in all lung villa. Good air movement throughout. Labs and imaging reviewed. 1. Leukocytosis. Neutrophil predominance. Peripheral smear wl morphology of cells. No signs of infection, but elevated CRP, normal ESR and slightly elevated lactate. Cultures are pending, but holding off on antibiotics. If cul tures are positive or no clinical improvement, consider TTE to assess for endocarditis. . ?post-inflammatory from COVID vs side effect from lithium (lithium level pending). With some B-symptoms that she seems to be experienced concerned for underlying malignancy. CT Chest with mildly enlarged mediastinal and hilar lymph nodes. It has been over a month since her last steroid dose. Appreciate hematology recommendations. 2. Dyspnea. Resolved. 3. Depression. Continue Cymbalta and lithium. Robins level pending. Dipso: pending clinical improvement and completion of work up. Subjective This morning, Lexy says that "my lungs feel a lot better." She says that she no longer feels short of breath. She does endorse a 1-day history of a nonproductive cough but denies chest pain, except for some pain with deep inspiration. She says that she has felt feverish, fatigued, and nauseated. She also endorses all-body aches and chills that she says feels like having the flu. She endorses a long-standing history of night sweats with no recent change in their frequency. She has been urinating normally and has also been having normal bowel movements. However, according to her, normal BMs mean a frequency of 1 month. She denies abdominal pain, lightheadedness/dizziness, headache. Review of Systems Constitutional: per subjective Physical Exam Constitutional: WD/WN, vitals as above Eyes: PERRL, conjunctivae normal, anicteric sclerae ENMT: external ear and nose normal, oropharynx normal Neck: trachea midline, no thyromegaly Respiratory: normal respiratory effort, lungs clear to auscultation Cardiovascular: RRR, no murmur, no edema Gastrointestinal (Abdomen): normal bowel sounds, soft, nontender, no hepatosplenomegaly Skin: warm, dry, well-perfused Results & Data ([facility]) Vital Signs (Past 12 Hours) Vital Signs Temp Pulse Pulse Resp BP BP Pulse Ox 09/23/21 06:34 85 85 20 106/50 L 95 09/23/21 06:18 82 20 136/68 97 09/23/21 04:02 81 18 99/46 L 94 09/23/21 02:30 88 16 137/59 L 94 09/23/21 01:07 101 H 19 92 09/22/21 23:49 93 H 20 106/69 94 09/22/21 23:48 96 09/22/21 23:15 37.3 C 100 H 24 119/70 92 Diagnostic Findings Peripheral smear impressions: #1. Persistent neutrophilia for one month is noted in the clinical history and t he patient's current absolute neutrophil count is 37.16 x 10 to the ninth per liter. #2. The red blood cells, monocytes, lymphocytes, and platelets are cytologically unremarkable. #3. Blasts and schistocytes are not seen. #4. If this patient's absolute neutrophilia persists, please consider a hematology consult to exclude a neoplastic process. #5. Please see above discussion. Huang Matamoros MD Resident Activity Tracking Resident Involvement: Resident Care Provided Care Provided: [facility]
[2021-09-23] MEDS: POT PHOSPHATE MONOBASIC W/ SOD TAB PO SCH ×4 (09:39→21:50)
[2021-09-23] MEDS: POLYETHYLENE (MIRALAX) 17 GM PACK PO SCH (09:39)
[2021-09-23] MEDS: METOPROLOL TARTRATE 50 MG TAB PO SCH ×2 (09:40→21:50)
[2021-09-23] MEDS: ENOXAPARIN INJ 40 MG/0.4 ML SYR SQ SCH (09:40)
[2021-09-23] MEDS: CETIRIZINE HCL 10 MG TABLET PO SCH (09:40)
[2021-09-23] MEDS: DULoxetine HCL 60 MG CAP PO SCH (09:40)
--- NOTE | 2021-09-23 12:00 | Electrocardiogram Report ---
Test Reason : Blood Pressure : / mmHG Vent. Rate : 097 BPM Atrial Rate : 097 BPM P-R Int : 146 ms QRS Dur : 086 ms QT Int : 342 ms P-R-T Axes : 054 052 049 degrees QTc Int : 434 ms Normal sinus rhythm Nonspecific ST abnormality When compared with ECG of 23-AUG-2021 03:59, No significant change was found Confirmed by Felton Martins ([id number]) on 09/23/2021 12:00:23 PM Referred By: REFERRED SELF Confirmed By:Bobby Martins
[2021-09-23] MEDS: LITHIUM CARBONATE 300 MG TAB PO SCH (12:21)
[2021-09-23] MEDS: MAGNESIUM CHLORIDE 64MG DELAYED REL TAB PO SCH (12:21)
[2021-09-23] MEDS ORDERED: LITHIUM CARBONATE 450 MG TABCR PO SCH (21:00)
[2021-09-23] MEDS ORDERED: DULoxetine HCL 30 MG CAP PO SCH (21:00)
[2021-09-24 06:08] LABS: Hemoglobin 12.4 g/dL (12.0-16.0); Mean Corpuscular Hgb Conc 32.6 g/dL (32-36); Mean Platelet Volume 10.5 fL (7.4-10.4); Platelet Count 335 K/uL (130-400); RDW Coefficient of Variation 14.3 % (11.5-14.5); RDW Standard Deviation 49.5 fL (36.4-46.3); White Blood Count 24.93 K/uL (4.8-10.8)
[2021-09-24 06:46] LABS: BUN Creatinine Ratio 20.3 (10-20); Basophils # (auto) 0.01 K/uL (0-0.2); Calcium 7.9 mg/dl (8.5-10.1); Creatinine Clr Calc Pharmacy 123.2 ml/min; Est GFR (African American) 132.9 ml/min; Est GFR (Non-African American) 114.6 ml/min; Immature Granulocytes # (auto) 0.08 K/uL (0.00-0.02); Immature Granulocytes % (auto) 0.3 %; Lymphocytes # (auto) 2.11 K/uL (1.2-3.4); Lymphocytes % (auto) 8.5 %; Monocytes # (auto) 0.95 K/uL (0.11-0.59); Monocytes % (auto) 3.8 %; Neutrophils # (auto) 21.78 K/uL (1.4-6.5); Neutrophils % (auto) 87.4 %; Potassium 3.3 mmol/L (3.5-5.1); Target Cells 1+
[2021-09-24] MEDS: MAGNESIUM CHLORIDE 64MG DELAYED REL TAB PO SCH (08:30)
[2021-09-24] MEDS: DULoxetine HCL 60 MG CAP PO SCH (08:31)
[2021-09-24] MEDS: ENOXAPARIN INJ 40 MG/0.4 ML SYR SQ SCH (08:31)
[2021-09-24] MEDS: POLYETHYLENE (MIRALAX) 17 GM PACK PO SCH (08:31)
[2021-09-24] MEDS: METOPROLOL TARTRATE 50 MG TAB PO SCH (08:31)
[2021-09-24] MEDS: CETIRIZINE HCL 10 MG TABLET PO SCH (08:31)
[2021-09-24] MEDS: POT PHOSPHATE MONOBASIC W/ SOD TAB PO SCH ×2 (08:31→13:18)
[2021-09-24] MEDS: LITHIUM CARBONATE 300 MG TAB PO SCH (08:31)
--- NOTE | 2021-09-24 11:15 | Hospitalist Progress Note ---
Date of Service September 24, 2021 Assessment & Plan (1) Shortness of breath: Plan: Lexy is a 41 year old female with a history of aortic valve repair and recent hospitalization for COVID who presents for evaluation of dyspnea, which has improved, and a significant leukocytosis. Leukocytosis with neutrophilic predominance - WBC, specifically neutrophil count, has been consistently and progressively elevating since last hospitalization to 38.73 (neut 25.51) on 09/23 - infectious vs. recent steroid usage vs. potential neoplastic process * infection seems less likely in setting of stable vitals and lack of infectious symptoms; steroid usage less likely as her last dose of steroids was 1 month ago (08/24) - peripheral smear showed absolute neutrophilia, all blood cells morphologically unremarkable, no blasts or schistocytes, recommend hematology consult - hematology consulted - qAM CBC Dyspnea, improving - per patient, improving; patient has not been hypoxic in hospital - bacterial/viral PNA vs. PE vs. fluid overload vs. endocarditis * PNA: afebrile, lungs clear, no cough, procal neg, ESR neg, lactate elevated 2.1, CRP elevated 0.71 * PE: CTA negative, no risk factors of hypercoagulability * Fluid overload: no symptoms, no edema, lungs clear, BNP 150, CTA showed cardiac enlargement suggestive of congestive failure, echo from 08/23 showed preserved EF * Endocarditis: history of aortic valve repair, no cardiac symptoms, vss - less concern for infection in setting of negative procal, afebrile - Blood cultures pending, consider echo if cultures positive - Continue home albuterol, benzonatate, lasix prn Hypophosphatemia - Phosphate 1.9 - repleted - recheck in AM Chronic Conditions: Depression and Bipolar Disorder: continue ativan PRN, home duloxetine, lithium Chronic Gastritis: continue home omeprazole History of Tachycardia/Palpitations: continue home metoprolol FEN/GI: regular diet, home omeprazole DVT Prophylaxis: Lovenox Code status: Full code Dispo: med/surg (2) Leukocytosis: (3) History of COVID-19: (4) Dyspnea: Admission and Anticipated Discharge Date Admission Date: September 23, 2021 Results & Data Results & Data ([facility]) Vital Signs (Past 12 Hours) Vital Signs Temp Pulse Resp BP Pulse Ox 09/24/21 07:21 36.7 C 78 14 123/69 96 (1) Dyspnea Dyspnea type: unspecified Qualified Code(s): R06.00 - Dyspnea, unspecified
--- NOTE | 2021-09-24 12:45 | Discharge Summary ---
Date of Service September 24, 2021 Admission HPI Per Admitting Provider Lexy Munoz is a 41yo female with history of aortic valve replacement, chronic idiopathic urticaria, MDD presenting with SOB. Patient tested POSITIVE for Covid-19 on 08/04/21. She reports a lingering cough and persistent dyspnea on exertion after recovering. She was seen in the ER at [facility] on 08/18/21 with complaint os SOB - she had a normal CTA chest and unremarkable laboratory workup with no documented hypoxia therefore was discharged home. She then went to [facility] on 08/19/21 with ongoing PEREZ and was admitted. She was noted to have an elevated lactate and WBC count and was treated with IV antibiotics. She reports CT of the chest at that time was negative. She was discharged home on 08/21/21 on a course of PO doxycycline and dexamethasone. She returned to [facility] on 08/23/21 with complaint of dyspnea and rapid breathing noted by her . She had a WBC count of 15 and was hypoxic with ambulation to 84%. She had a CTA which was unremarkable. She was admitted for acute hypoxic respiratory failure thought to be secondary to Covid-19 pneumonitis and bronchitis. She had an extensive workup to include negative CXR, CTA without PE but with bilateral pleural effusions. Echo with preserved EF and mild to moderate AI. She was treated with IV Dexamethasone, Lasix and Doxycycline. She was weaned off O2 and had a successful two step walk test on the day of discharge. She was sent home on 08/25/21 with a prescription for Dexamethasone as well as nebulizer and albuterol, Lasix PRN. Patient returns today because of ongoing dyspnea at rest as well as with exertion. She woke from sleep tonight feeling short of breath. She has been overall feeling poorly with body aches and fatigue. Additionally she has been found to have persistently elevated leukocytosis. Additional complaints include cough, SOB, nausea, fatigue, joint pain, chronic night sweats and subjective fever, weight gain, constipation She denies chest pain, abdominal pain, diarrhea, dysuria, rash. No additional complaints ER Course: Dexamethasone 10mg IV, Zofran, NSS Admission Exam Per Admitting Provider General: patient resting comfortably, NAD, non-toxic in appearance, AA&O x 4 Skin: warm, dry, intact, no rashes or lesions HEENT: NC/AT, PERRL, EOMI, anicteric sclera, conjunctiva without injection, external ear normal to inspection and nontender, nares patent, moist mucus membranes, dentition intact, no oropharyngeal lesions, neck supple, trachea midline, no LAD, no thyromegaly, no JVD Heart: +S1/S2, regular, no m/r/g, sternotomy scar Lungs: equal air entry bilaterally, fine end-inspiratory crackles noted in right lung base Abd: +BS, soft, NT/ND, no masses/organomegaly/ascites Ext: warm, 2+ pulses in UE/LE bilaterally, no clubbing/cyanosis or edema Neuro: nonfocal, patient AA&O x 4, speech intact, no facial droop, moving all extremities on command with equal strength 5/5 Principal Diagnosis Dyspnea Discharge Exam Constitutional WD/WN, vitals as above Eyes PERRL, conjunctivae normal, anicteric sclerae ENMT external ear and nose normal, oropharynx normal Neck trachea midline, no thyromegaly Respiratory normal respiratory effort, lungs clear to auscultation Cardiovascular RRR, no murmur, no edema Gastrointestinal (Abdomen) normal bowel sounds, soft, nontender, no hepatosplenomegaly Skin no rashes, warm and dry Discharge Data Allergies Allergy/AdvReac Type Severity Reaction Status Date / Time ampicillin Allergy Intermediate HIVES Verified 09/23/21 00:05 codeine Allergy Intermediate GI SYMPTOMS Verified 09/23/21 00:05 fentanyl Allergy Intermediate Hives Verified 09/23/21 00:05 meperidine Allergy Intermediate VEIN Verified 09/23/21 00:05 TURNED RED/PAINFUL morphine Allergy Intermediate Hives Verified 09/23/21 00:05 Opioids - Morphine Analogues Allergy Intermediate Hives Verified 09/23/21 00:05 Opioids-Meperidine and Allergy Intermediate Hives Verified 09/23/21 00:05 Related Penicillins Allergy Intermediate SICK TO Verified 09/23/21 00:05 STOMACH amoxicillin Allergy Mild rash Verified 09/23/21 00:05 clavulanic acid Allergy Mild rash Verified 09/23/21 00:05 Sulfa (Sulfonamide Allergy Unknown UNSURE Verified 09/23/21 00:05 Antibiotics) REACTION prednisone AdvReac Severe Tachycardia Verified 09/23/21 00:05 promethazine AdvReac Mild itching Verified 09/23/21 00:05 NARCOTIC Allergy Intermediate Hives Uncoded 09/23/21 00:05 METAL AdvReac Mild Rash Uncoded 09/23/21 00:05 Consultations 09/23/21 02:58 ED Decision to Admit Stat 09/23/21 11:30 Consult Hematology Routine Ordered Studies 09/22/21 23:24 CT angio chest PE protocol Urgent Hospital Course (1) Shortness of breath: Lexy is a 41 year old female with a history of aortic valve repair and recent hospitalization for COVID who presents for evaluation of dyspnea, which has improved, and a significant leukocytosis. *Patient to follow up with psychiatrist to determine future use of lithium medication. Leukocytosis with neutrophilic predominance WBC, specifically neutrophil count, has been consistently and progressively elevating since last hospitalization to 38.73 (neut 25.51) on 09/23. Considered infectious vs. recent steroid usage vs. potential neoplastic process, iinfection seems less likely in setting of stable vitals and lack of infectious symptoms; steroid usage less likely as her last dose of steroids was 1 month ago (08/24). Peripheral smear showed absolute neutrophilia, all blood cells morphologically unremarkable, no blasts or schistocytes. Hematology consulted, they believe this is secondary to her lithium medication, recommend continuing her lithium for now. Patient to follow up with her psychiatrist to determine lithium usage. Dyspnea, resolved. Per patient, improving; patient has not been hypoxic in hospital. Ruled out bacterial/viral PNA vs. PE vs. fluid overload vs. endocarditis * PNA: afebrile, lungs clear, no cough, procal neg, ESR neg, lactate elevated 2.1, CRP elevated 0.71 * PE: CTA negative, no risk factors of hypercoagulability * Fluid overload: no symptoms, no edema, lungs clear, BNP 150, CTA showed cardiac enlargement suggestive of congestive failure, echo from 08/23 showed preserved EF * Endocarditis: history of aortic valve repair, no cardiac symptoms, vss, negative blood culture Less concern for infection in setting of negative procal, afebrile. Patient to continue home albuterol, benzonatate, lasix prn Hypophosphatemia Phosphate 1.9, repleted Chronic Conditions: Depression and Bipolar Disorder: continue ativan PRN, home duloxetine, lithium Chronic Gastritis: continue home omeprazole History of Tachycardia/Palpitations: continue home metoprolol (2) Leukocytosis: (3) History of COVID-19: (4) Dyspnea: Total Time Total Time Spent Total Time Spent (In Minutes): see attending attestation Discharge Plan Discharge Items Patient Disposition: Home - Self-Care Reason For Visit: SOB Discharge Diagnosis: Dyspnea Activity: Resume your previous activity Non-emergency contact: Primary Care Provider Call non-emergency contact if: you have any medication questions, your symptoms worsen and you have a fever Follow-up/Referrals: Lexy Mccoy CRNP [Primary Care Provider] - Diet: Regular Addtl Attending Provider Instructions: You were admitted to the hospital for shortness of breath. You were found to have a normal degree of oxygen saturation. Your shortness of breath resolved without further intervention. You were incidentally found to have an elevated white blood cell count. After evaluation, we believe this is unlikely to be due to infection. You were evaluated by hematology, it is possible that your elevated white blood cell cou nt is due to your lithium medication. Please continue taking your lithium at this time, and follow up with your psychiatrist to determine further steps regarding your medication. A discharge summary will be sent to your primary care physician to ensure continuity of care. Please bring this discharge summary with you to your next office appointment so that your provider can review it at that time. Follow-up appointments: Make a follow-up appointment with your PCP within the next week. It is very important that you follow up with them shortly after discharge from the hospital. Make a follow-up appointment with your Psychiatrist. It is very important that you follow up with them shortly after discharge from the hospital. Keep all your follow-up appointments as already scheduled. If you cannot make an appointment, notify your provider. Medications: Your medication list has been reviewed and reconciled upon discharge to ensure a ccuracy and continuity of care. An updated list of all your medications is included with your hospital discharge paperwork. Please review this list closely, and make note of any changes. Take your medications as instructed; do not skip a dose of your medicines. Make sure all of your doctors know every medicine you are taking (including [id number]-[id number] medicines, vitamins, and supplements). Call your primary care provider before taking any new medicines (including dhly-egu-galnfym medicines, vitamins, and supplements), because some of these may interact with your current medications, or may make your symptoms worse. Tell your primary care provider if you cannot afford your medications. CONTACT YOUR PRIMARY CARE PROVIDER if you experience any of the following: shortness of breath, fever, weakness Difficulty following your treatment plan, or difficulty taking medications CALL 911 OR GO TO THE EMERGENCY DEPARTMENT if you experience any of the following: Sudden, severe abdominal pain or nausea/vomiting Severe chest pain, or chest pain that radiates (moves) to your jaw or arm Sudden, severe shortness of breath or difficulty breathing Thank you for allowing us to participate in your care. Pending Studies at Discharge: No Stand-Alone Forms: My [facility], Smoking Cessation Medications and DC Order Prescriptions: Continued albuterol sulfate 90 mcg/actuation HFA aerosol inhaler 2 puff inhalation Q6H PRN (Reason: shortness of breath or wheezing) Qty: 8.5 RF: 0 omeprazole 40 mg capsule,delayed release(DR/EC) 40 mg PO DAILY Qty: 30 RF: 2 duloxetine 60 mg capsule,delayed release(DR/EC) 60 mg PO QAM RF: 0 metoprolol tartrate 50 mg tablet 50 mg PO BID RF: 0 cetirizine [Zyrtec] 10 mg Tablet 10 mg PO QAM RF: 0 lithium carbonate 450 mg tablet extended release 450 mg PO HS RF: 0 lorazepam 1 mg tablet 1 mg PO HS PRN (Reason: Anxiety) RF: 0 duloxetine 30 mg capsule,delayed release(DR/EC) 30 mg PO HS RF: 0 polyethylene glycol 3350 [Miralax] 17 gram Powder In Packet 17 g PO DAILY Qty: 30 RF: 0 benzonatate 200 mg capsule 200 mg PO TID PRN (Reason: cough) Qty: 20 RF: 0 furosemide [Lasix] 20 mg tablet 20 mg PO DAILY PRN (Reason: swelling) Qty: 5 RF: 0 albuterol sulfate 2.5 mg /3 mL (0.083 %) solution for nebulization 1.25 mg inhalation Q6H PRN (Reason: shortness of breath or cough) Qty: 90 RF: 0 Discharge Orders: Discharge Order (Routine); Ordered 09/24/21 Ordered By: Tammy Osman/Other Patient Handouts: 5 Steps for Eating Healthier Admission Data Admit Date/Time: 09/23/21 03:42 Attending Provider: Jed Hernandez Admit Provider: Livia Khan Primary Care Provider: Lexy Mccoy Other Providers: Livia Khan ; Tammy Caro Other Interventions: Discharge Summary Assessment (RN) Last Done: 09/24/21 13:45 Supervising Physician Co-Signing Physician Notes Patient seen and examined with PGY-1 Dr. Gooden. Agree with history, exam findings, assessment and plan of care as outlined. In brief, Lexy is a 41 year old female with history of prior aortic valve repair (hx of congenital valve anomaly), depression and recent COVID admitted with dyspnea. Breathing is improved. Off oxygen. No fevers, chills, night sweats overnight. Has been on lithium for the last year. VS and nursing notes reviewed. Well appearing, non-toxic. Labs and imaging reviewed. 1. Leukocytosis. Neutrophil predominance. Peripheral smear wl morphology of cells. No signs of infection, but elevated CRP, normal ESR and slightly elevated lactate. Culture without growth thus far. Appreciate hematology recommendationssuspect leukocytosis is secondary to lithium. Discussed with patient that work up so far is reassuring, but if she would like to confirm that the leukocytosis is related to the lithium, she can discuss this with her psychiatric provider regarding risks/benefits of this. 2. Dyspnea. Resolved. 3. Depression. Continue Cymbalta and lithium. [place] level is not toxic. Dipso: discharge home today. Close follow up with psych and PCP. I personally spent 20 minutes discharge planning for this patient. Resident Activity Tracking Resident Involvement: Resident Care Provided Care Provided: Adult [facility] Medicine
--- NOTE | 2021-09-24 12:48 | Consultation Report ---
HEMATOLOGY CONSULTATION DATE OF SERVICE: 09/24/2021. REASON FOR CONSULTATION: Leukocytosis (neutrophilia). HISTORY OF PRESENT ILLNESS: Lexy Munoz was admitted to [facility] last night because of subacute-onset shortness of breath. She is a 41-year-old female who tested positive for COVID-19 in early July, subsequently developed COVID pneumonia. She was treated with steroids and supplemental oxygen during that time. She reports no further steroid therapy other than on admission today. According to her history and physical, she was subsequently discharged home on 08/21 on a course of doxycycline and dexamethasone as well. Clearly, I reviewed her WBC trends and the patient generally has been normal. She was told by another medical professional, however, that with a white count as high as hers, she perhaps may have something more sinister such as leukemia or lymphoma. She returned to our Emergency Room because she was experiencing dyspnea at rest as well as with exertion. She also developed arthralgias and myalgias. She denies fevers, chills or sweats otherwise. She denies any GI symptoms at this time. WBC count presently 25,000 with hemoglobin 12.4 and platelet count of 335,000. Again, careful examination of white cell differential reveals an absolute neutrophilia with no evidence of emerging immaturity. PAST MEDICAL HISTORY: Includes chronic anemia, anxiety, aortic regurgitation, aortic stenosis, renal stones, chronic constipation, migraine headaches, degenerative disk disease, depression, fibromyalgia, internal hemorrhoids, lumbago, posttraumatic stress disorder, suicide attempt, tobacco use disorder. PAST SURGICAL HISTORY: Includes a history of aortic valve repair, history of eye and hand surgery, laparoscopy, breast biopsy, cardiac catheterization, colonoscopy, dilatation and curettage, EGD, tonsillectomy. MEDICATIONS PRIOR TO ADMISSION: Duloxetine 60 mg p.o. daily, metoprolol 50 mg p.o. b.i.d., albuterol sulfate 2 puffs inhaled q.6 hours p.r.n., cetirizine 10 mg p.o. daily, duloxetine 30 mg p.o. daily, lithium carbonate 450 mg p.o. at bedtime, lorazepam 1 mg p.o. at bedtime p.r.n., benzonatate 200 mg p.o. t.i.d. p.r.n. for cough, Lasix 20 mg p.o. daily, MiraLax 17 g p.o. daily, omeprazole 40 mg p.o. daily. ALLERGIES: ALLERGY LIST IS EXTENSIVE; PENICILLINS, CODEINE, FENTANYL, MEPERIDINE, MORPHINE, OPIOIDS, SULFA, PREDNISONE, PROMETHAZINE. FAMILY HISTORY: Mother has a positive history of diabetes mellitus. Maternal grandmother with heart disease. Maternal aunt, breast and ovarian cancer. Uncle with myocardial infarction. Sister also suffers from an undisclosed cancer. SOCIAL HISTORY: The patient is , resides with her spouse. She is a reformed smoker. Positive for alcohol intake. REVIEW OF SYSTEMS: As per HPI. PHYSICAL EXAMINATION: GENERAL: Very pleasant 41-year-old female, awake, alert, appropriate, in no acute distress. VITAL SIGNS: Temperature 36.7, pulse 78, respiratory rate 14, blood pressure 123/69. SKIN: Warm, dry, noncyanotic without petechia, rash or ecchymosis. HEENT: Oral mucosa without erythema or ulceration. NECK: Supple without JVD or thyromegaly. LYMPHATICS: No cervical or supraclavicular palpable nodes. HEART: Regular rate and rhythm. No clicks, rubs, murmurs or gallops. LUNGS: Clear to auscultation bilaterally. ABDOMEN: Soft, nontender, nondistended. No palpable hepatosplenomegaly. EXTREMITIES: No calf tenderness or swelling. No clubbing, cyanosis or edema. MUSCULOSKELETAL: Strength and pulses are equal in all 4 quadrants. NEUROLOGIC: She is awake, alert and oriented x3. Cranial nerves are grossly intact. RADIOGRAPHIC DATA: CTA of the chest is negative for pulmonary embolism, mildly enlarged mediastinal and hilar lymph nodes, which are nonspecific and similar to previous examination. IMPRESSION: 1. Leukocytosis (neutrophilia). 2. Prior COVID-19/COVID pneumonia. 3. Dyspnea and shortness of breath. PLAN: I have been asked to comment on Lexy's persistently elevated white count. Clearly, there has been intermittent steroids in the past month or two. In addition, the patient is on lithium. [place] has a well-known side effect commonly board question on hematology boards, [place] can cause an underlying leukocytosis. I took a note of this during dictation and thus did not ask her how long she has been on the agent. Clearly, there is no outward evidence of emerging infection. She has multiple inflammatory issues including fibromyalgia, arthritis and such. She was a prior cigarette smoker and states she has not smoked in over a year. As you know, cigarette smoking can also cause an idiopathic neutrophilia. There is no evidence of immaturity. Peripheral smear will be examined for completeness sake. There is no need for flow cytometry. To offer the patient further reassurance, I would be happy to revisit her upon discharge and make a followup appointment at the [facility]. I have nothing further to add at this time and trust she will probably be discharged in the next 24 to 48 hours. Thank you very much for allowing me to participate in her care. Job ID: [id number] [id number]
== END 2021-09-24 15:26 | disposition home or self-care (01) | DRG 204 ==
LOC: ED 23:12 → EDINP 09-23 03:42 → SUATTDRO 09-23 03:42 → INTOOBSV 09-23 03:42 → 3E 09-23 06:50